=== PATIENT | male | born 1955 | race American Indian/Alaskan Native ===

== ENCOUNTER 2019-08-14 12:48 | Inpatient (IN) | payer OTHER ==
[2019-08-14] MEDS ORDERED: ACETAMINOPHEN 500 MG TAB ONE (13:19)
[2019-08-14] MEDS ORDERED: SODIUM CHLORIDE 0.9% 1000 ML 1,000 ML ONE (13:20)
[2019-08-14] MEDS ORDERED: SODIUM CHLORIDE 0.9% 1000 ML IV SOLN IV ONE (13:21)
--- NOTE | 2019-08-14 13:29 | Emergency Department Report ---
ED Shortness of Breath HPI - General Chief Complaint: Dyspnea/Respdistress Stated Complaint: SOB Time Seen by Provider: 08/14/19 13:20 Source: patient, family Mode of arrival: Wheelchair Limitations: No Limitations - History of Present Illness Initial Comments: Patient is 64 years old male with history of rheumatoid arthritis on daily prednisone and he also taking methotrexate. Patient also had history of hypertension and possible COPD. Patient presented to the ER complaining of 5- day history of fever, cough, runny nose, shortness of breath, nausea vomiting and diarrhea. Patient denied any contact with confirmed or suspected patient with COVID-19. Patient denied any chest pain. Patient found to be febrile with a temperature of 102.4 tachycardic at 129 and blood pressure of 134/84. Respiratory rate is 38 breaths/min. Patient initial oxygen saturation on room air is 64%, patient put on a nonrebreather with improvement of oxygen saturation to 89% and then will drop down to 80%. Sepsis protocol immediately initiated. Given patient history and current presentation this patient is highly suspected to have covid-19. Respiratory precaution and isolation initiated. During this time that I spent with the patient I have my PPE all the time including the full gown, and 95 mask. MD Complaint: shortness of breath, cough -: days(s) (5) Severity: moderate Known History Of: COPD Context: recent URI - Related Data Home Medications Medication Instructions Recorded Confirmed Last Taken Folic Acid [Folvite] 1 mg PO QDAY 03/18/18 08/14/19 03/18/18 Ibuprofen [Ibuprofen 800] 800 mg PO TID 03/18/18 08/14/19 03/18/18 Prednisone [predniSONE (Kiki) ER 5 mg PO QDAY 03/18/18 08/14/19 03/18/18 TAB] metHOTREXate(DOSE WEEKLY ONLY) 15 mg PO QWEEK 03/18/18 08/14/19 03/16/18 [metHOTREXate (DOSE WEEKLY ONLY)] sulfaSALAzine [Azulfidine] 1,000 mg PO BID 03/18/18 08/14/19 03/18/18 Amlodipine Besylate [Norvasc] 10 mg PO QDAY 08/14/19 08/14/19 Unknown HYDROcodone/APAP 7.5-325 [[place] 1 each PO Q8HR PRN 08/14/19 08/14/19 Unknown 7.5/325] Zolpidem Tartrate 10 mg PO QHS PRN 08/14/19 08/14/19 Unknown Allergies Allergy/AdvReac Type Severity Reaction Status Date / Time No Known Allergies Allergy Verified 03/18/18 09:23 ED Review of Systems ROS: Stated complaint: SOB Other details as noted in HPI Comment: All other systems reviewed and negative Constitutional: chills, fever Respiratory: cough, shortness of breath, SOB with exertion Cardiovascular: palpitations. denies: chest pain Gastrointestinal: nausea, vomiting, diarrhea. denies: abdominal pain Musculoskeletal: denies: back pain Neurological: weakness ED Past Medical Hx - Past Medical History Previous Medical History?: Yes Hx Hypertension: Yes ("BORDERLINE" - NO MEDS) Hx Renal Disease: No Hx Arthritis: Yes Hx COPD: Yes (NO MEDS) Hx HIV: No - Surgical History Past Surgical History?: Yes Additional Surgical History: right knee, left knee - Social History Smoking Status: Never Smoker Substance Use Type: Alcohol, Prescribed - Medications Home Medications: Home Medications Medication Instructions Recorded Confirmed Last Taken Type Folic Acid [Folvite] 1 mg PO QDAY 03/18/18 08/14/19 03/18/18 History Ibuprofen [Ibuprofen 800] 800 mg PO TID 03/18/18 08/14/19 03/18/18 History Prednisone [predniSONE (Kiki) ER 5 mg PO QDAY 03/18/18 08/14/19 03/18/18 History TAB] metHOTREXate(DOSE WEEKLY ONLY) 15 mg PO QWEEK 03/18/18 08/14/19 03/16/18 History [metHOTREXate (DOSE WEEKLY ONLY)] sulfaSALAzine [Azulfidine] 1,000 mg PO BID 03/18/18 08/14/19 03/18/18 History Amlodipine Besylate [Norvasc] 10 mg PO QDAY 08/14/19 08/14/19 Unknown History HYDROcodone/APAP 7.5-325 [[place] 1 each PO Q8HR PRN 08/14/19 08/14/19 Unknown History 7.5/325] Zolpidem Tartrate 10 mg PO QHS PRN 08/14/19 08/14/19 Unknown History ED Physical Exam - General Limitations: No Limitations General appearance: in distress - Head Head exam: Present: atraumatic, normocephalic, normal inspection - Eye Eye exam: Present: normal appearance - ENT ENT exam: Present: mucous membranes dry - Neck Neck exam: Present: normal inspection, full ROM. Absent: tenderness, meningismus - Respiratory Respiratory exam: Present: normal lung sounds bilaterally - Cardiovascular Cardiovascular Exam: Present: tachycardia - GI/Abdominal GI/Abdominal exam: Present: soft, normal bowel sounds. Absent: distended, tenderness, guarding, rebound, rigid, organomegaly, mass, bruit, pulsatile mass, hernia - Extremities Exam Extremities exam: Present: normal inspection, full ROM, normal capillary refill. Absent: tenderness, pedal edema, calf tenderness - Back Exam Back exam: Present: normal inspection, full ROM. Absent: CVA tenderness (R), CVA tenderness (L) - Neurological Exam Neurological exam: Present: alert, oriented X3 - Skin Skin exam: Present: warm, intact, normal color ED Course Vital Signs 08/14/19 08/14/19 08/14/19 12:48 14:03 14:15 Temperature 102.4 F H Pulse Rate 76 124 H 120 H Respiratory 24 40 H 42 H Rate Blood Pressure 134/84 155/89 130/84 O2 Sat by Pulse 76 L 95 91 Oximetry 08/14/19 08/14/19 08/14/19 14:30 14:46 14:50 Temperature Pulse Rate 116 H 119 H Respiratory 38 H 34 H 36 H Rate Blood Pressure 130/84 138/86 O2 Sat by Pulse 96 94 65 L Oximetry 08/14/19 08/14/19 08/14/19 15:00 15:15 15:24 Temperature Pulse Rate 119 H 121 H 116 H Respiratory 30 H 24 Rate Blood Pressure 129/90 134/93 137/52 O2 Sat by Pulse 88 83 L 97 Oximetry 08/14/19 08/14/19 08/14/19 15:30 15:35 15:45 Temperature 99.9 F H Pulse Rate 113 H 114 H Respiratory 20 31 H Rate Blood Pressure 137/88 135/78 O2 Sat by Pulse 98 100 Oximetry 08/14/19 08/14/19 08/14/19 16:00 16:15 16:30 Temperature Pulse Rate 109 H 113 H 108 H Respiratory 29 H 29 H 31 H Rate Blood Pressure 135/78 133/87 133/87 O2 Sat by Pulse 97 100 100 Oximetry 04/03/2408/14/19 08/14/19 16:45 17:00 17:15 Temperature Pulse Rate 106 H 112 H 108 H Respiratory 28 H 28 H 26 H Rate Blood Pressure 130/84 130/84 139/87 O2 Sat by Pulse 100 100 98 Oximetry 08/14/19 08/14/19 08/14/19 17:30 17:46 17:52 Temperature 98.3 F Pulse Rate 112 H 113 H Respiratory 27 H 27 H Rate Blood Pressure 139/87 134/89 O2 Sat by Pulse 100 99 Oximetry 08/14/19 08/14/19 08/14/19 18:00 18:15 18:30 Temperature Pulse Rate 107 H 106 H 105 H Respiratory 23 23 23 Rate Blood Pressure 129/93 140/92 143/93 O2 Sat by Pulse 99 97 Oximetry 08/14/19 08/14/19 08/14/19 18:45 19:00 19:15 Temperature Pulse Rate 103 H 105 H 107 H Respiratory 23 23 21 Rate Blood Pressure 139/94 142/93 141/93 O2 Sat by Pulse 95 Oximetry 08/14/19 08/14/19 08/14/19 19:30 19:45 19:50 Temperature Pulse Rate 104 H 104 H 112 H Respiratory 23 23 Rate Blood Pressure 147/93 146/95 137/82 O2 Sat by Pulse 95 95 95 Oximetry 08/14/19 08/14/19 08/14/19 20:00 20:15 20:30 Temperature Pulse Rate 106 H 103 H 103 H Respiratory 21 21 19 Rate Blood Pressure 137/91 128/83 122/84 O2 Sat by Pulse 95 95 Oximetry 08/14/19 08/14/19 08/14/19 20:45 21:00 21:02 Temperature Pulse Rate 101 H 101 H 101 H Respiratory 20 22 Rate Blood Pressure 135/86 143/94 135/86 O2 Sat by Pulse 97 97 97 Oximetry 08/14/19 08/14/19 08/14/19 21:15 21:30 21:45 Temperature Pulse Rate 108 H 107 H 105 H Respiratory 24 20 20 Rate Blood Pressure 143/94 127/84 115/77 O2 Sat by Pulse 97 95 94 Oximetry 08/14/19 08/14/19 08/14/19 22:00 22:15 22:30 Temperature Pulse Rate 103 H 103 H 105 H Respiratory 20 21 32 H Rate Blood Pressure 117/77 125/82 117/80 O2 Sat by Pulse Oximetry 08/14/19 08/14/19 08/14/19 22:45 23:00 23:05 Temperature Pulse Rate 104 H 104 H 105 H Respiratory 22 22 25 H Rate Blood Pressure 132/83 132/83 132/83 O2 Sat by Pulse 96 95 94 Oximetry 08/14/19 08/14/19 08/14/19 23:15 23:30 23:45 Temperature Pulse Rate 105 H 106 H 105 H Respiratory 23 34 H 26 H Rate Blood Pressure 133/86 140/79 142/86 O2 Sat by Pulse 96 97 96 Oximetry 08/15/19 08/15/19 08/15/19 00:01 00:03 00:15 Temperature Pulse Rate 118 H 117 H 113 H Respiratory 32 H 33 H Rate Blood Pressure 160/106 142/86 142/98 O2 Sat by Pulse 95 96 91 Oximetry 08/15/19 08/15/19 00:30 01:00 Temperature 99.9 F H Pulse Rate 112 H Respiratory 27 H Rate Blood Pressure 140/92 O2 Sat by Pulse 91 Oximetry - Intubation Time Out Performed: Yes Sedative: Etomidate Mg Given: 20 Paralytic: Succinylcholine Laryngoscope: Monse Size: 3 ET Tube Size: 7.5 Tube Secured Location: teeth Tube Placement Confirmation: visualized tube passing t, equal breath sounds bilat, no breath sounds over epi, confirmation by capnometr Patient Tolerated Procedure: well, no complications Intubation Complications: none ED Medical Decision Making - Lab Data Result diagrams: 08/15/19 04:12 08/15/19 04:12 - EKG Data -: EKG Interpreted by Nm EKG shows normal: sinus rhythm Rate: tachycardia - EKG Data Interpretation: no acute changes - Radiology Data Radiology results: report reviewed - Medical Decision Making Patient is 64 years old male with history of rheumatoid arthritis on daily prednisone and he also taking methotrexate. Patient also had history of hypertension and possible COPD. Patient presented to the ER complaining of 5- day history of fever, cough, runny nose, shortness of breath, nausea vomiting and diarrhea. Patient denied any contact with confirmed or suspected patient with COVID-19. Patient denied any chest pain. Patient found to be febrile with a temperature of 102.4 tachycardic at 129 and blood pressure of 134/84. Respiratory rate is 38 breaths/min. Patient initial oxygen saturation on room air is 64%, patient put on a nonrebreather with improvement of oxygen saturation to 89% and then will drop down to 80%. Sepsis protocol immediately initiated. Given patient history and current presentation this patient is highly suspected to have covid-19. Respiratory precaution and isolation initiated. Patient given a trial with high flow oxygen but no improvement patient continues to be tachypneic with an oxygen saturation in the lower 80s. I decided to intubate the patient for acute respiratory failure. Patient intubated by me using a glide scope. I discussed the patient with Dr. Sanchez Heart, infectious disease who advised to go ahead with the testing for covid-19. I discussed the patient with Dr. Grande, he agreed to admit the patient to medical service for further management. Critical Care Time: Yes Critical care time in (mins) excluding proc time.: 45 Critical care attestation.: If time is entered above; I have spent that time in minutes in the direct care of this critically ill patient, excluding procedure time. ED Disposition Clinical Impression: Bilateral pneumonia, Sepsis, Suspected COVID-19 virus infection Acute respiratory failure Qualifiers: Respiratory failure complication: hypoxia Qualified Code(s): J96.01 - Acute respiratory failure with hypoxia Disposition: 09 OP ADMIT IP TO THIS HOSP Is pt being admited?: Yes Condition: Stable
[2019-08-14 13:51] LABS: Hematocrit 46.1 % (35.5-45.6); Hemoglobin 14.8 gm/dl (11.8-15.2); Mean Corpuscular HGB Conc 32 % (32-34); Mean Corpuscular Volume 84 fl (84-94); Red Blood Count 5.47 M/mm3 (3.65-5.03); Red Cell Distribution Width 17.6 % (13.2-15.2)
--- NOTE | 2019-08-14 14:11 | XRay Report ---
CHEST 1 VIEW, 08/14/2019 1:36 PM CLINICAL INFORMATION/INDICATION: Shortness of breath COMPARISON: None FINDINGS: SUPPORT DEVICES: None. HEART: The cardiac silhouette is normal in size. LUNGS/PLEURA: There is diffuse bilateral mixed interstitial and airspace disease. No focal consolidat ion or significant pleural effusion is identified. ADDITIONAL FINDINGS: No additional acute findings. IMPRESSION: 1. Mixed interstitial and airspace disease of indeterminate etiology and chronicity. Signer Name: Kinsey Harrison MD Signed: 08/14/2019 2:07 PM Workstation Name: [id number]
[2019-08-14 14:16] LABS: Alanine Aminotransferase 18 units/L (7-56); Albumin 3.7 g/dL (3.9-5); BUN/Creatinine Ratio 22; Blood Urea Nitrogen 22 mg/dL (9-20); C-Reactive Protein 22.2 mg/dL (0.00-1.30); Calcium 9.7 mg/dL (8.4-10.2); Hemolysis Index 5
[2019-08-14] MEDS ORDERED: cefTRIAXone/NS 1 GM/50 ML 1 GM/50 ML BAG IV ONE (14:20)
[2019-08-14] MEDS ORDERED: ACETAMINOPHEN 500 MG TAB PO ONE (14:22)
[2019-08-14 14:40] LABS: Band Neutrophils # (Manual) 0.1 K/mm3; Basophils % (Manual) 0 % (0.0-1.8); Eosinophils % (Manual) 0 % (0.0-4.3); Myelocytes # (Manual) 0.1 K/mm3; Total Cells Counted 100
[2019-08-14 14:41] LABS: Giant Platelets Few; Hypochromasia Few; Platelet Estimate Consistent w Auto; Rouleaux Few
[2019-08-14 14:47] LABS: Platelet Count 246 K/mm3 (140-440)
[2019-08-14] MEDS ORDERED: AZITHROMYCIN 500 MG in SODIUM CHLORIDE 0.9% 250ML 250 ML IV ONE (15:00)
[2019-08-14] MEDS ORDERED: LIP THERAPY VASELINE TP PRN (16:09)
[2019-08-14] MEDS ORDERED: MINERAL OIL/PETROLATUM, WHITE OPHTH OINT 3.5 GM OU PRN (16:09)
--- NOTE | 2019-08-14 16:15 | XRay Report ---
CHEST 1 VIEW, 08/14/2019 3:29 PM CLINICAL INFORMATION/INDICATION: Respiratory failure. Endotracheal tube placement COMPARISON: Chest radiograph, 08/14/2019 at 1:36 PM FINDINGS: SUPPORT DEVICES: There has been interval placement of an endotracheal tube with tip approximately 3.5 cm above the level of the joanne. An esophagogastric tube has also been placed with distal end below the level of the diaphragm. HEART: The cardiac silhouette is normal in size. LUNGS/PLEURA: Diffuse bilateral parenchymal disease is again noted and appears unchanged. ADDITIONAL FINDINGS: No additional acute findings. IMPRESSION: 1. Placement of endotracheal tube and esophagogastric tube as above. 2. Stable diffuse bilateral parenchymal disease. Signer Name: Kinsey Harrison MD Signed: 08/14/2019 4:11 PM Workstation Name: [id number]
[2019-08-14] MEDS ORDERED: fentaNYL 100 MCG/2 ML INJ ONE ×2 (16:21→22:00)
[2019-08-14] MEDS ORDERED: fentaNYL DRIP Premix 2,000 MCG/100 ML BAG IV ONE (16:21)
[2019-08-14] MEDS: fentaNYL 100 MCG/2 ML INJ IV PRN ×2 (16:27→22:05)
[2019-08-14] MEDS: fentaNYL DRIP Premix 2,000 MCG/100 ML BAG IV SCH (16:28)
[2019-08-14 16:44] LABS: ABG Base Excess -5.5 mmol/L (-2.0-3.0); ABG HCO3 20.7 mmol/L (20.0-26.0); ABG Methemoglobin 0.6 % (0.0-1.5); ABG Oxygen Saturation 99.3 % (95.0-99.0); ABG PCO2 42.7 mm Hg; ABG PH 7.303 pH Units (7.350-7.450); ABG PO2 223.6 mm Hg (80.0-90.0)
[2019-08-14 19:56] LABS: Bilirubin,Urine NEG (Negative); Blood,Urine SM (Negative); Color,Urine Yellow (Yellow); Mucus,Urine 2+ /HPF; Urobilinogen,Urine < 2.0 mg/dL (<2.0)
[2019-08-14] MEDS ORDERED: ALBUTEROL 2.5 MG/3 ML NEBU IH PRN (23:50)
[2019-08-14] MEDS ORDERED: ONDANSETRON 4 MG/2 ML INJ IV PRN (23:52)
--- NOTE | 2019-08-15 00:03 | History and Physical Report ---
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 Patient was not wearing a mask. This patient is well-known to me and was cautioned about social distancing, wearing mask, the office being closed so that there is no exposure to coronavirus. In spite of many people telling him not to go to work-patient has been going to work. Developed fever and diarrhea for last 5 days but did not seek any medical attention. His called me this morning about the fever and diarrhea and the patient was asked to come to the emergency room for evaluation. In the emergency room patient had low oxygen saturations in the high fever and oxygenation levels were not improving with high flow oxygen and was intubated for respiratory support. states that there were 2 patients with coronavirus at work. PUI?: Yes COVID19: Pending Past History Past Medical History: hypertension, other (Rheumatoid arthritis) Past Surgical History: Other Social history: , lives with family, full code Family history: hypertension Medications and Allergies Allergies Allergy/AdvReac Type Severity Reaction Status Date / Time No Known Allergies Allergy Verified 03/18/18 09:23 Home Medications Medication Instructions Recorded Confirmed Last Taken Type Folic Acid [Folvite] 1 mg PO QDAY 03/18/18 08/14/19 03/18/18 History Ibuprofen [Ibuprofen 800] 800 mg PO TID 03/18/18 08/14/19 03/18/18 History Prednisone [predniSONE (Kiki) ER 5 mg PO QDAY 03/18/18 08/14/19 03/18/18 History TAB] metHOTREXate(DOSE WEEKLY ONLY) 15 mg PO QWEEK 03/18/18 08/14/19 03/16/18 History [metHOTREXate (DOSE WEEKLY ONLY)] sulfaSALAzine [Azulfidine] 1,000 mg PO BID 03/18/18 08/14/19 03/18/18 History Amlodipine Besylate [Norvasc] 10 mg PO QDAY 08/14/19 08/14/19 Unknown History HYDROcodone/APAP 7.5-325 [[place] 1 each PO Q8HR PRN 08/14/19 08/14/19 Unknown History 7.5/325] Zolpidem Tartrate 10 mg PO QHS PRN 08/14/19 08/14/19 Unknown History Active Meds: Active Medications Acetaminophen (Tylenol) 650 mg PO Q4H PRN PRN Reason: Pain MILD(1-3)/Fever >100.5/GANNON Albuterol (Proventil) 2.5 mg IH Q4HRT PRN PRN Reason: Shortness Of Breath Fentanyl (Sublimaze) 50 mcg IV Q10MIN PRN PRN Reason: ANALGESIA Last Admin: 08/14/19 22:05 Dose: 50 mcg Documented by: Hydrophilic Ointment (Vaseline Lip Therapy) 1 applic TP Q2HR PRN PRN Reason: Dry Lips Hydroxychloroquine Sulfate (Plaquenil) 400 mg PO Q12H ADÁN Stop: 08/15/19 11:46 Hydroxychloroquine Sulfate (Plaquenil) 200 mg PO Q12H ADÁN Stop: 08/19/19 10:01 Fentanyl Citrate (Fentanyl Drip Premix) 2,000 mcg in 100 mls @ 5.216 mls/hr IV TITR ADÁN; Protocol Last Titration: 08/14/19 16:50 Dose: 2 mcg/kg/hr, 10.433 mls/hr Documented by: Propofol (Diprivan 10 Mg/Ml) 1,000 mg in 100 mls @ 3.13 mls/hr IV TITR ADÁN; Protocol Last Admin: 08/14/19 21:28 Dose: 50 mcg/kg/min, 31.298 mls/hr Documented by: Ceftriaxone Sodium (Rocephin/Ns 2 Gm/100 Ml) 2 gm in 100 mls @ 200 mls/hr IV Q24HR ADÁN; Protocol Sodium Chloride (Nacl 0.9% 1000 Ml) 1,000 mls @ 75 mls/hr IV DIRECT ADÁN Multi-Ingred Cream/Lotion/Oil/Oint (Artificial Tears Ophth Oint) 1 applic OU Q4HR PRN PRN Reason: Dry Eye(s) Ondansetron HCl (Zofran) 4 mg IV Q8H PRN PRN Reason: Nausea And Vomiting Sodium Chloride (Sodium Chloride Flush Syringe 10 Ml) 10 ml IV BID ADÁN Sodium Chloride (Sodium Chloride Flush Syringe 10 Ml) 10 ml IV PRN PRN PRN Reason: LINE FLUSH Review of Systems All systems: negative Constitutional: fever, chills, night sweats, weakness, malaise Cardiovascular: shortness of breath, dyspnea on exertion Respiratory: cough Gastrointestinal: diarrhea Exam - Physical Exam Narrative exam: Patient intubated - Constitutional Vitals: Temp Pulse Resp BP Pulse Ox 98.3 F 104 H 22 132/83 95 08/14/19 17:52 08/14/19 23:00 08/14/19 23:00 08/14/19 23:00 08/14/19 23:00 General appearance: Present: no acute distress, severe distress, well-nourished - EENT Eyes: Present: PERRL ENT: hearing intact, clear oral mucosa - Neck Neck: Present: supple, normal ROM - Respiratory Respiratory effort: normal Respiratory: bilateral: CTA, rales, rhonchi - Cardiovascular Heart rate: 98 Rhythm: regular (98) Heart Sounds: Present: S1 & S2. Absent: rub, click - Extremities Extremities: no ischemia, pulses symmetrical, No edema Peripheral Pulses: within normal limits - Abdominal General gastrointestinal: Present: soft, non-tender, non-distended, normal bowel sounds Male genitourinary: Present: normal - Integumentary Integumentary: Present: clear, warm, dry - Musculoskeletal Musculoskeletal: strength equal bilaterally, other (Before intubation) - Psychiatric Psychiatric: appropriate mood/affect, intact judgment & insight - Neurologic Neurologic: CNII-XII intact, moves all extremities, other (Before intubation) - Allied Health Allied health notes reviewed: nursing, case management Results - Labs CBC & Chem 7: 08/14/19 13:27 08/14/19 13:27 Labs: Laboratory Last Values WBC 12.2 K/mm3 (4.5-11.0) H 08/14/19 13:27 RBC 5.47 M/mm3 (3.65-5.03) H 08/14/19 13:27 Hgb 14.8 gm/dl (11.8-15.2) 08/14/19 13:27 Hct 46.1 % (35.5-45.6) H 08/14/19 13:27 MCV 84 fl (84-94) 08/14/19 13:27 MCH 27 pg (28-32) L 08/14/19 13:27 MCHC 32 % (32-34) 08/14/19 13:27 RDW 17.6 % (13.2-15.2) H 08/14/19 13:27 Plt Count 246 K/mm3 (140-440) 08/14/19 13:27 Add Manual Diff Complete 08/14/19 13:27 Total Counted 100 08/14/19 13:27 Seg Neutrophils % Production Analyst 08/14/19 13:27 Seg Neuts % (Manual) 93.0 % (40.0-70.0) H 08/14/19 13:27 Band Neutrophils % 1.0 % 08/14/19 13:27 Lymphocytes % (Manual) 3.0 % (13.4-35.0) L 08/14/19 13:27 Reactive Lymphs % (Man) 0 % 08/14/19 13:27 Monocytes % (Manual) 2.0 % (0.0-7.3) 08/14/19 13:27 Eosinophils % (Manual) 0 % (0.0-4.3) 08/14/19 13:27 Basophils % (Manual) 0 % (0.0-1.8) 08/14/19 13:27 Metamyelocytes % 0 % 08/14/19 13:27 Myelocytes % 1.0 % 08/14/19 13:27 Promyelocytes % 0 % 08/14/19 13:27 Blast Cells % 0 % 08/14/19 13:27 Nucleated RBC % Not Reportable 08/14/19 13:27 Seg Neutrophils # Man 11.3 K/mm3 (1.8-7.7) H 08/14/19 13:27 Band Neutrophils # 0.1 K/mm3 08/14/19 13:27 Lymphocytes # (Manual) 0.4 K/mm3 (1.2-5.4) L 08/14/19 13:27 Abs React Lymphs (Man) 0.0 K/mm3 08/14/19 13:27 Monocytes # (Manual) 0.2 K/mm3 (0.0-0.8) 08/14/19 13:27 Eosinophils # (Manual) 0.0 K/mm3 (0.0-0.4) 08/14/19 13:27 Basophils # (Manual) 0.0 K/mm3 (0.0-0.1) 08/14/19 13:27 Metamyelocytes # 0.0 K/mm3 08/14/19 13:27 Myelocytes # 0.1 K/mm3 08/14/19 13:27 Promyelocytes # 0.0 K/mm3 08/14/19 13:27 Blast Cells # 0.0 K/mm3 08/14/19 13:27 WBC Morphology Not Reportable 08/14/19 13:27 Hypersegmented Neuts Not Reportable 08/14/19 13:27 Hyposegmented Neuts Not Reportable 08/14/19 13:27 Hypogranular Neuts Not Reportable 08/14/19 13:27 Smudge Cells Not Reportable 08/14/19 13:27 Toxic Granulation Not Reportable 08/14/19 13:27 Toxic Vacuolation Not Reportable 08/14/19 13:27 Dohle Bodies Not Reportable 08/14/19 13:27 Pelger-Huet Anomaly Not Reportable 08/14/19 13:27 Jorge A Rods Not Reportable 08/14/19 13:27 Platelet Estimate Consistent w auto 08/14/19 13:27 Clumped Platelets Not Reportable 08/14/19 13:27 Plt Clumps, EDTA Not Reportable 08/14/19 13:27 Large Platelets Not Reportable 08/14/19 13:27 Giant Platelets Few 08/14/19 13:27 Platelet Satelliting Not Reportable 08/14/19 13:27 Plt Morphology Comment Not Reportable 08/14/19 13:27 RBC Morphology Not Reportable 08/14/19 13:27 Dimorphic RBCs Not Reportable 08/14/19 13:27 Polychromasia Not Reportable 08/14/19 13:27 Hypochromasia Few 08/14/19 13:27 Poikilocytosis Not Reportable 08/14/19 13:27 Anisocytosis Not Reportable 08/14/19 13:27 Microcytosis Not Reportable 08/14/19 13:27 Macrocytosis Not Reportable 08/14/19 13:27 Spherocytes Not Reportable 08/14/19 13:27 Pappenheimer Bodies Not Reportable 08/14/19 13:27 Sickle Cells Not Reportable 08/14/19 13:27 Target Cells Not Reportable 08/14/19 13:27 Tear Drop Cells Not Reportable 08/14/19 13:27 Ovalocytes Not Reportable 08/14/19 13:27 Helmet Cells Not Reportable 08/14/19 13:27 [place] Bodies Not Reportable 08/14/19 13:27 [place] Rings Not Reportable 08/14/19 13:27 [place] Cells Not Reportable 08/14/19 13:27 Bite Cells Not Reportable 08/14/19 13:27 Crenated Cell Not Reportable 08/14/19 13:27 Elliptocytes Not Reportable 08/14/19 13:27 Acanthocytes (Spur) Not Reportable 08/14/19 13:27 Rouleaux Few 08/14/19 13:27 Hemoglobin C Crystals Not Reportable 08/14/19 13:27 Schistocytes Not Reportable 08/14/19 13:27 Malaria parasites Not Reportable 08/14/19 13:27 Scott Bodies Not Reportable 08/14/19 13:27 Hem Pathologist Commnt No 08/14/19 13:27 D-Dimer 6296.21 ng/mlDDU (0-234) H 08/14/19 13:27 ABG pH 7.303 pH Units (7.350-7.450) L 08/14/19 16:25 ABG pCO2 42.7 mm Hg 08/14/19 16:25 ABG pO2 223.6 mm Hg (80.0-90.0) H 08/14/19 16:25 ABG HCO3 20.7 mmol/L (20.0-26.0) 08/14/19 16:25 ABG O2 Saturation 99.3 % (95.0-99.0) H 08/14/19 16:25 ABG O2 Content 24.2 (0.0-44) 08/14/19 16:25 ABG Base Excess -5.5 mmol/L (-2.0-3.0) L 08/14/19 16:25 ABG Hemoglobin 17.3 gm/dl (14.0-18.0) 08/14/19 16:25 ABG Carboxyhemoglobin 1.1 % (0.0-5.0) 08/14/19 16:25 ABG Methemoglobin 0.6 % (0.0-1.5) 08/14/19 16:25 Oxyhemoglobin 97.6 % (95.0-99.0) 08/14/19 16:25 FiO2 100 % 08/14/19 16:25 Sodium 134 mmol/L (137-145) L 08/14/19 13:27 Potassium 3.5 mmol/L (3.6-5.0) L 08/14/19 13:27 Chloride 94.7 mmol/L (98-107) L 08/14/19 13:27 Carbon Dioxide 17 mmol/L (22-30) L 08/14/19 13:27 Anion Gap 26 mmol/L 08/14/19 13:27 BUN 22 mg/dL (9-20) H 08/14/19 13:27 Creatinine 1.0 mg/dL (0.8-1.5) 08/14/19 13:27 Estimated GFR > 60 ml/min 08/14/19 13:27 BUN/Creatinine Ratio 22 % 08/14/19 13:27 Glucose 104 mg/dL (75-100) H 08/14/19 13:27 Lactic Acid 1.50 mmol/L (0.7-2.0) 08/14/19 16:15 Calcium 9.7 mg/dL (8.4-10.2) 08/14/19 13:27 Ferritin 1633.0 ng/mL (13.0-400.0) H 08/14/19 13:27 Total Bilirubin 0.30 mg/dL (0.1-1.2) 08/14/19 13:27 AST 43 units/L (5-40) H 08/14/19 13:27 ALT 18 units/L (7-56) 08/14/19 13:27 Alkaline Phosphatase 111 units/L (35-129) 08/14/19 13:27 Lactate Dehydrogenase 651 units/L (91-180) H 08/14/19 13:27 C-Reactive Protein 22.20 mg/dL (0.00-1.30) H 08/14/19 13:27 Total Protein 9.0 g/dL (6.3-8.2) H 08/14/19 13:27 Albumin 3.7 g/dL (3.9-5) L 08/14/19 13:27 Albumin/Globulin Ratio 0.7 % 08/14/19 13:27 Procalcitonin 0.67 ng/mL (<0.15) 08/14/19 13:27 Urine Color Yellow (Yellow) 08/14/19 19:40 Urine Turbidity Slightly-cloudy (Clear) 08/14/19 19:40 Urine pH 5.0 (5.0-7.0) 08/14/19 19:40 Ur Specific [place] 1.021 (1.003-1.030) 08/14/19 19:40 Urine Protein 100 mg/dl mg/dL (Negative) 08/14/19 19:40 Urine Glucose (UA) Neg mg/dL (Negative) 08/14/19 19:40 Urine Ketones Neg mg/dL (Negative) 08/14/19 19:40 Urine Blood Sm (Negative) 08/14/19 19:40 Urine Nitrite Neg (Negative) 08/14/19 19:40 Urine Bilirubin Neg (Negative) 08/14/19 19:40 Urine Urobilinogen < 2.0 mg/dL (<2.0) 08/14/19 19:40 Ur Leukocyte Esterase Neg (Negative) 08/14/19 19:40 Urine WBC (Auto) 2.0 /HPF (0.0-6.0) 08/14/19 19:40 Urine RBC (Auto) 3.0 /HPF (0.0-6.0) 08/14/19 19:40 U Epithel Cells (Auto) 1.0 /HPF (0-13.0) 08/14/19 19:40 Urine Mucus 2+ /HPF 08/14/19 19:40 Influenza A (Rapid) Negative (Negative) 08/14/19 Unknown Influenza B (Rapid) Negative (Negative) 08/14/19 Unknown Short CBC 08/14/19 Range/Units 13:27 WBC 12.2 H (4.5-11.0) K/mm3 Hgb 14.8 (11.8-15.2) gm/dl Hct 46.1 H (35.5-45.6) % Plt Count 246 (140-440) K/mm3 BMP 08/14/19 13:27 Sodium 134 L Potassium 3.5 L Chloride 94.7 L Carbon Dioxide 17 L BUN 22 H Creatinine 1.0 Glucose 104 H Calcium 9.7 Liver Function 08/14/19 Range/Units 13:27 Total Bilirubin 0.30 (0.1-1.2) mg/dL AST 43 H (5-40) units/L ALT 18 (7-56) units/L Alkaline Phosphatase 111 (35-129) units/L Albumin 3.7 L (3.9-5) g/dL Urine 08/14/19 Range/Units 19:40 Urine Color Yellow (Yellow) Urine pH 5.0 (5.0-7.0) Ur Specific [place] 1.021 (1.003-1.030) Urine Protein 100 mg/dl (Negative) mg/dL Urine Glucose (UA) Neg (Negative) mg/dL Microbiology: Microbiology 08/14/19 13:27 Peripheral/Venous Blood Culture - Preliminary Culture in Progress 08/14/19 13:27 Peripheral/Venous Blood Culture - Preliminary Culture in Progress - Imaging and Cardiology EKG: report reviewed Imaging and Cardiology: Chest x-ray IMPRESSION: 1. Mixed interstitial and airspace disease of indeterminate etiology and chronicity. [place]/IV: IV Catheter Type [Left Hand] Peripheral IV IV Catheter Type [Right Hand] Peripheral IV Assessment and Plan Assessment and plan: The high probability OF a clinically significant sudden or life-threatening deterioration of the cardiorespiratory system and endocrine system required my full and direct attention, intervention and postoperative management. The aggregate medical care time was 40 minutes. The time is in addition to time spent performing reported procedures but includes the followin: Data review and interpretation 2: Patient assessment and monitoring of vital signs 3: Documentation 4:: Medication orders and management Advance Directives: Yes (Full code) VTE prophylaxis?: Chemical - Patient Problems (1) Acute respiratory failure Current Visit: Yes Status: Acute Qualifiers: Respiratory failure complication: hypoxia Qualified Code(s): J96.01 - Acute respiratory failure with hypoxia Plan to address problem: Patient intubated Vent management Soil Science Teacher consulted Patient sedated (2) Bilateral pneumonia Current Visit: Yes Status: Acute Plan to address problem: Patient initiated on IV ceftriaxone and chloroquine (3) Sepsis Current Visit: Yes Status: Acute Plan to address problem: IV fluids, IV antibiotics and chloroquine ID consult (4) Suspected COVID-19 virus infection Current Visit: Yes Status: Acute Plan to address problem: COVID 19 sent (5) Rheumatoid arthritis Current Visit: Yes Status: Chronic Qualifiers: Rheumatoid arthritis location: knee Rheumatoid factor presence: with rheumatoid factor Laterality: bilateral Qualified Code(s): M05.761 - Rheumatoid arthritis with rheumatoid factor of right knee without organ or systems involvement; M05.762 - Rheumatoid arthritis with rheumatoid factor of left knee without organ or systems involvement Plan to address problem: Patient is on methotrexate and prednisone We will discuss with ID and restart them (6) Volume depletion, gastrointestinal loss Current Visit: Yes Status: Acute Plan to address problem: IV fluids for now because of volume depletion We will discuss with ID about continuation of normal saline which can be harmful in ARDS patients (7) DVT prophylaxis Current Visit: Yes Status: Acute Plan to address problem: SCDs and GI prophylaxis
[2019-08-15] MEDS ORDERED: fentaNYL DRIP Premix 2,000 MCG/100 ML BAG IV ONE (00:32)
[2019-08-15] MEDS: HYDROXYCHLOROQUINE 200 MG TAB PO SCH ×3 (01:38→21:19)
[2019-08-15] MEDS: SODIUM CHLORIDE 0.9% 1000 ML 1,000 ML IV SCH (01:42)
[2019-08-15] MEDS ORDERED: METOPROLOL TARTRATE 5 MG/5 ML INJ IV ONE (02:20)
[2019-08-15] MEDS ORDERED: ASPIRIN 325 MG TAB PO ONE (02:29)
[2019-08-15 02:43] LABS: ABG Base Excess -4.5 mmol/L (-2.0-3.0); ABG HCO3 20.3 mmol/L (20.0-26.0); ABG Methemoglobin 0.5 % (0.0-1.5); ABG Oxygen Saturation 89.4 % (95.0-99.0); ABG PCO2 36.6 mm Hg; ABG PH 7.362 pH Units (7.350-7.450); ABG PO2 57.8 mm Hg (80.0-90.0)
--- NOTE | 2019-08-15 02:43 | Event Note ---
Notified nurse of abnormal EKG EKG shows ST elevation EKG was faxed to cardiology The patient received beta-shanti, aspirin, statin, and ATA inhibitor Cardiology recommend TPA due to Covid status, heparin drip Patient had CODE BLUE Initial rhythm PEA ACLS protocol was initiated, ROSC was achieved was notified, check labs
[2019-08-15] MEDS ORDERED: EPINEPHrine 1:10,000 1 MG/10 ML SYRINGE ONE (03:00)
[2019-08-15] MEDS ORDERED: ALTEPLASE IV ONE (03:04)
[2019-08-15] MEDS ORDERED: SODIUM CHLORIDE 0.9% 1000 ML 1,000 ML IV ONE ×2 (03:04→04:55)
[2019-08-15 03:11] LABS: Hematocrit 41.7 % (35.5-45.6); Hemoglobin 13.2 gm/dl (11.8-15.2); Mean Corpuscular HGB Conc 32 % (32-34); Mean Corpuscular Volume 84 fl (84-94); Red Blood Count 4.95 M/mm3 (3.65-5.03); Red Cell Distribution Width 17.6 % (13.2-15.2)
[2019-08-15] MEDS ORDERED: ALTEPLASE 100 MG INJ KIT ONE (03:19)
[2019-08-15 03:29] LABS: C-Reactive Protein 24.3 mg/dL (0.00-1.30)
[2019-08-15 03:33] LABS: Creatine Kinase MB 69.8 ng/mL (0.0-4.0)
[2019-08-15 03:36] LABS: BUN/Creatinine Ratio 24; Blood Urea Nitrogen 26 mg/dL (9-20); Calcium 8.9 mg/dL (8.4-10.2); Hemolysis Index 4
[2019-08-15] MEDS ORDERED: NORepinephrine/NS 4 MG-250 ML 4 MG/250 ML BAG IV ONE (03:39)
[2019-08-15 03:43] LABS: INR 3.26 (0.87-1.13)
[2019-08-15 04:04] LABS: Partial Thromboplastin Time 61.5 Sec. (24.2-36.6)
[2019-08-15 04:06] LABS: Chol/HDL Ratio 3.66 %
[2019-08-15 04:18] LABS: Anisocytosis 1+; Basophils % (Manual) 0 % (0.0-1.8); Eosinophils % (Manual) 0 % (0.0-4.3); Giant Platelets 1+; Hypochromasia 1+; Platelet Clumps 1+; Rouleaux 1+; Total Cells Counted 100
[2019-08-15 04:19] LABS: Platelet Count 190 K/mm3 (140-440)
[2019-08-15 04:32] LABS: Basophils % (Auto) 0.2 % (0.0-1.8); Eosinophils % (Auto) 0.1 % (0.0-4.3); Hematocrit 40.3 % (35.5-45.6); Hemoglobin 12.5 gm/dl (11.8-15.2); Lymphocytes # (Auto) 1.1 K/mm3 (1.2-5.4); Lymphocytes % (Auto) 8.5 % (13.4-35.0); Mean Corpuscular HGB Conc 31 % (32-34); Mean Corpuscular Volume 87 fl (84-94); Monocytes # (Auto) 0.5 K/mm3 (0.0-0.8); Monocytes % (Auto) 4.3 % (0.0-7.3); Platelet Count 159 K/mm3 (140-440); Red Blood Count 4.65 M/mm3 (3.65-5.03); Red Cell Distribution Width 17.5 % (13.2-15.2)
[2019-08-15 04:38] LABS: Creatine Kinase MB 66.1 ng/mL (0.0-4.0)
[2019-08-15 04:39] LABS: BUN/Creatinine Ratio 19; Blood Urea Nitrogen 26 mg/dL (9-20); Calcium 8.1 mg/dL (8.4-10.2); Hemolysis Index 3
[2019-08-15] MEDS: HEPARIN/ 0.45% NACL DRIP 25,000 UNIT/500 ML BAG IV SCH (04:48)
[2019-08-15] MEDS ORDERED: LIPASE 10,500/PROTEASE 25,000/AMYLASE 43,750 (UNITS) DR CAP FEEDTUBE PRN (08:47)
[2019-08-15] MEDS ORDERED: SIMPLE SYRUP 15 ML FEEDTUBE PRN ×2 (08:47)
[2019-08-15] MEDS ORDERED: SODIUM BICARBONATE 325 MG TAB FEEDTUBE PRN (08:47)
[2019-08-15] MEDS: cefTRIAXone/NS 2 GM/100 ML 2 GM/100 ML BAG IV SCH (09:23)
[2019-08-15] MEDS: fentaNYL DRIP Premix 2,000 MCG/100 ML BAG IV SCH ×3 (09:24→23:14)
[2019-08-15] MEDS ORDERED: MIDAZOLAM 5 MG/5 ML INJ MDV IV ONE (10:00)
[2019-08-15] MEDS ORDERED: ETOMIDATE 20 MG/10 ML INJ IV ONE (10:00)
[2019-08-15] MEDS ORDERED: METOPROLOL TARTRATE 25 MG TAB PO SCH (10:00)
[2019-08-15] MEDS ORDERED: LISINOPRIL 5 MG TAB PO SCH (10:00)
[2019-08-15] MEDS ORDERED: SUCCINYLCHOLINE CHLORIDE 200 MG/10 ML INJ MDV ONE (10:00)
--- NOTE | 2019-08-15 10:44 | XRay Report ---
CHEST 1 VIEW, 08/15/2019 8:44 AM CLINICAL INFORMATION/INDICATION: Respiratory failure COMPARISON: Chest radiograph, 08/14/2019 at 3:29 PM FINDINGS: SUPPORT DEVICES: Endotracheal tube and esophagogastric tube project in stable position. HEART: The cardiac silhouette is normal in size. LUNGS/PLEURA: Diffuse bilateral pulmonary opacities do not appear significantly changed. No large ple ural effusion or pneumothorax is visualized. ADDITIONAL FINDINGS: No additional acute findings. IMPRESSION: 1. Stable appearance of bilateral pulmonary opacities. Signer Name: Kinsey Harrison MD Signed: 08/15/2019 10:40 AM Workstation Name: [id number]
--- NOTE | 2019-08-15 11:05 | Consultation ---
History of Present Illness Consult date: 08/15/19 Consult reason: other (Acute myocardial infarction) History of present illness: The patient is a 64-year-old man admitted to the hospital with shortness of breath, fever 102, bilateral severe pulmonary infiltrates and high suspicion for COVID-19. In the hospital he was assessed with acute respiratory failure and intubated and placed on the vent. His initial ECG on presentation was a sinus rhythm with no acute ischemic changes. 12 hours into his hospital course while in the CCU, the nursing staff noted an elevation of his ST segments on the cardiac monitor technician. A 12-lead ECG repeated was consistent with an acute inferolateral wall myocardial infarction. Due to his condition with COVID-19, acute respiratory failure and sepsis, he was deemed not a candidate for emergency diagnostic cardiac catheterization. Instead, he w as treated with standard dose thrombolytic therapy with TPA, and continued intravenous heparin. The patient currently remains unresponsive, in the CCU on the ventilator. He remains in a stable sinus rhythm, blood pressure is 119 systolic on low-dose Levophed. A 12-lead EKG post thrombolytic therapy shows a greater than 50% reduction in the ST elevation inferolateral leads. Past History Past Medical History: hypertension, other (Rheumatoid arthritis) Social history: , lives with family, full code Family history: hypertension Medications and Allergies Allergies Allergy/AdvReac Type Severity Reaction Status Date / Time No Known Allergies Allergy Verified 03/18/18 09:23 Home Medications Medication Instructions Recorded Confirmed Last Taken Type Folic Acid [Folvite] 1 mg PO QDAY 03/18/18 08/14/19 03/18/18 History Ibuprofen [Ibuprofen 800] 800 mg PO TID 03/18/18 08/14/19 03/18/18 History Prednisone [predniSONE (Kiki) ER 5 mg PO QDAY 03/18/18 08/14/19 03/18/18 History TAB] metHOTREXate(DOSE WEEKLY ONLY) 15 mg PO QWEEK 03/18/18 08/14/19 03/16/18 History [metHOTREXate (DOSE WEEKLY ONLY)] sulfaSALAzine [Azulfidine] 1,000 mg PO BID 03/18/18 08/14/19 03/18/18 History Amlodipine Besylate [Norvasc] 10 mg PO QDAY 08/14/19 08/14/19 Unknown History HYDROcodone/APAP 7.5-325 [[place] 1 each PO Q8HR PRN 08/14/19 08/14/19 Unknown History 7.5/325] Zolpidem Tartrate 10 mg PO QHS PRN 08/14/19 08/14/19 Unknown History Active Meds: Active Medications Acetaminophen (Tylenol) 650 mg PO Q4H PRN PRN Reason: Pain MILD(1-3)/Fever >100.5/GANNON Albuterol (Proventil) 2.5 mg IH Q4HRT PRN PRN Reason: Shortness Of Breath Lipase/Protease/Amylase (Pancreaze Dr 10,500 Unit) 1 each FEEDTUBE PRN PRN PRN Reason: For Clogged Feeding Tube Atorvastatin Calcium (Lipitor) 40 mg PO QHS ADÁN Fentanyl (Sublimaze) 50 mcg IV Q10MIN PRN PRN Reason: ANALGESIA Last Admin: 08/14/19 22:05 Dose: 50 mcg Documented by: Hydrophilic Ointment (Vaseline Lip Therapy) 1 applic TP Q2HR PRN PRN Reason: Dry Lips Hydroxychloroquine Sulfate (Plaquenil) 400 mg PO Q12H ADÁN Stop: 08/15/19 11:46 Last Admin: 08/15/19 01:38 Dose: 400 mg Documented by: Hydroxychloroquine Sulfate (Plaquenil) 200 mg PO Q12H ADÁN Stop: 08/19/19 10:01 Fentanyl Citrate (Fentanyl Drip Premix) 2,000 mcg in 100 mls @ 5.216 mls/hr IV TITR ADÁN; Protocol Last Admin: 08/15/19 09:24 Dose: 3 mcg/kg/hr, 15.649 mls/hr Documented by: Propofol (Diprivan 10 Mg/Ml) 1,000 mg in 100 mls @ 3.13 mls/hr IV TITR ADÁN; Protocol Last Admin: 08/15/19 09:21 Dose: 50 mcg/kg/min, 31.298 mls/hr Documented by: Ceftriaxone Sodium (Rocephin/Ns 2 Gm/100 Ml) 2 gm in 100 mls @ 200 mls/hr IV Q24HR ADÁN; Protocol Last Admin: 08/15/19 09:23 Dose: 200 mls/hr Documented by: Sodium Chloride (Nacl 0.9% 1000 Ml) 1,000 mls @ 75 mls/hr IV DIRECT ADÁN Last Admin: 08/15/19 01:42 Dose: 75 mls/hr Documented by: Heparin Sodium/Sodium Chloride (Heparin/ 0.45% Nacl-25,000 Unit/500 Ml) 25,000 unit in 500 mls @ 20 mls/hr IV TITRATE [facility]; Protocol Last Admin: 08/15/19 04:48 Dose: 600 units/hr, 12 mls/hr Documented by: Sodium Chloride (Nacl 0.9% 1000 Ml) 1,000 mls @ 42 mls/hr IV ONCE ONE Stop: 08/16/19 02:52 Last Admin: 08/15/19 04:54 Dose: 42 mls/hr Documented by: Lisinopril (Zestril) 2.5 mg PO QDAY [facility] Last Admin: 08/15/19 10:42 Dose: Not Given Documented by: Metoprolol Tartrate (Metoprolol) 25 mg PO BID [facility] Last Admin: 08/15/19 10:42 Dose: Not Given Documented by: Multi-Ingred Cream/Lotion/Oil/Oint (Artificial Tears Ophth Oint) 1 applic OU Q4HR PRN PRN Reason: Dry Eye(s) Ondansetron HCl (Zofran) 4 mg IV Q8H PRN PRN Reason: Nausea And Vomiting Simple Syrup (Simple Syrup) 15 ml FEEDTUBE PRN PRN PRN Reason: Hypoglycemia Simple Syrup (Simple Syrup) 30 ml FEEDTUBE PRN PRN PRN Reason: Hypoglycemia Sodium Bicarbonate (Sodium Bicarbonate) 325 mg FEEDTUBE PRN PRN PRN Reason: For Clogged Feeding Tube Sodium Chloride (Sodium Chloride Flush Syringe 10 Ml) 10 ml IV BID [facility] Last Admin: 08/15/19 09:23 Dose: 10 ml Documented by: Sodium Chloride (Sodium Chloride Flush Syringe 10 Ml) 10 ml IV PRN PRN PRN Reason: LINE FLUSH Review of Systems ROS unobtainable: due to endotracheal tube, due to mental status Physical Examination Vital Signs Temp Pulse Resp BP Pulse Ox 102.4 F H 76 24 134/84 76 L 08/14/19 12:48 08/14/19 12:48 08/14/19 12:48 08/14/19 12:48 08/14/19 12:48 General appearance: other (Unresponsive, on the ventilator) HEENT: Positive: PERRL Neck: Positive: neck supple Cardiac: Positive: Reg Rate and Rhythm Lungs: Positive: Decreased Breath Sounds Neuro: Positive: Other (Unresponsive, on the vent) Abdomen: Positive: Soft Male genitourinary: Positive: deferred Skin: Positive: Clear Extremities: Absent: edema Results 08/15/19 04:12 08/15/19 04:12 Cardiac Enzymes 08/14/19 08/14/19 08/15/19 Range/Units 13:27 13:27 02:25 AST 43 H (5-40) units/L Lactate Dehydrogenase 651 H 732 H (91-180) units/L CK-MB (CK-2) (0.0-4.0) ng/mL 08/15/19 08/15/19 Range/Units 02:25 04:12 AST (5-40) units/L Lactate Dehydrogenase (91-180) units/L CK-MB (CK-2) 69.8 H 66.1 H (0.0-4.0) ng/mL Coagulation 08/15/19 Range/Units 02:25 PT 34.0 H (12.2-14.9) Sec. INR 3.26 H (0.87-1.13) APTT 61.5 H* (24.2-36.6) Sec. Lipids 08/15/19 Range/Units 02:25 Triglycerides 219 H (2-149) mg/dL Cholesterol 154 (50-199) mg/dL HDL Cholesterol 42 (40-59) mg/dL Cholesterol/HDL Ratio 3.66 % CBC 08/14/19 08/15/19 08/15/19 Range/Units 13:27 02:25 04:12 WBC 12.2 H 13.7 H 12.8 H (4.5-11.0) K/mm3 RBC 5.47 H 4.95 4.65 (3.65-5.03) M/mm3 Hgb 14.8 13.2 12.5 (11.8-15.2) gm/dl Hct 46.1 H 41.7 40.3 (35.5-45.6) % Plt Count 246 190 159 (140-440) K/mm3 Lymph # 1.1 L (1.2-5.4) K/mm3 Gates # 0.5 (0.0-0.8) K/mm3 Eos # 0.0 (0.0-0.4) K/mm3 Baso # 0.0 (0.0-0.1) K/mm3 Comprehensive Metabolic Panel 08/14/19 08/15/19 08/15/19 Range/Units 13:27 02:25 04:12 Sodium 134 L 135 L 136 L (137-145) mmol/L Potassium 3.5 L 3.9 3.7 (3.6-5.0) mmol/L Chloride 94.7 L 100.6 103.1 (98-107) mmol/L Carbon Dioxide 17 L 19 L 18 L (22-30) mmol/L BUN 22 H 26 H 26 H (9-20) mg/dL Creatinine 1.0 1.1 1.4 (0.8-1.5) mg/dL Glucose 104 H 113 H 142 H (75-100) mg/dL Calcium 9.7 8.9 8.1 L (8.4-10.2) mg/dL AST 43 H (5-40) units/L ALT 18 (7-56) units/L Alkaline Phosphatase 111 (35-129) units/L Total Protein 9.0 H (6.3-8.2) g/dL Albumin 3.7 L (3.9-5) g/dL EKG interpretations - Telemetry EKG Rhythm: Sinus Rhythm (With acute inferolateral ST elevation myocardial infarction) Assessment and Plan - Patient Problems (1) Acute ST elevation myocardial infarction (STEMI) of inferolateral wall Current Visit: Yes Status: Acute Plan to address problem: 64-year-old man who presented with respiratory failure and fever and sepsis, high suspicion for COVID-19 infection. The intercurrent development of an acute inferior lateral ST elevation myocardial infarction while hospitalized in the CCU was treated with intravenous TPA. ECG post TPA shows successful reperfusion with marked reduction in the ST segment elevation. We will continue aggressive management with aspirin, Plavix, intravenous heparin, beta-blockers, nitrates and statin as tolerated. Further cardiac management will depend on clinical course with regards to the sepsis and respiratory failure.
[2019-08-15] MEDS ORDERED: CLOPIDOGREL 300 MG TAB PO ONE (11:15)
--- NOTE | 2019-08-15 11:27 | Consultation ---
History of Present Illness Consult date: 08/15/19 Requesting physician: YOGESH NIXON Reason for consult: hypoxemia, other History of present illness: 64 y/o male admitted with acute respiratory failure, concern for COVID 19 based upon presenting symptoms to the ED. Patient was intubated somewhere late yesterday afternoon. I was first called about the patient after midnight ([id number] exactly), that patient came up from ED and was found to have ST elevation and concern for acute MO. I ordered ASA 325 and Atorvastatin 40 and Metoprolol IV and PO. They were awaiting call back from cardiology. I wanted them to decide about TPA or not. They did elect to given Altepase and then heparin drip was started. Currently patient is sedated, on vent support at FiO2 of 100 which I just decreased to 90. Sats still good at 95%. BP stable with MAP of 81 on levo at 6 but this is going through a peripheral IV. Patient is also on Diprovan at 50 and Fent at 3. Remainder of the review is negative. Past History Past Medical History: hypertension, other (Rheumatoid arthritis) Past Surgical History: Other Social history: , lives with family, full code Family history: hypertension Medications and Allergies Allergies Allergy/AdvReac Type Severity Reaction Status Date / Time No Known Allergies Allergy Verified 03/18/18 09:23 Home Medications Medication Instructions Recorded Confirmed Last Taken Type Folic Acid [Folvite] 1 mg PO QDAY 03/18/18 08/14/19 03/18/18 History Ibuprofen [Ibuprofen 800] 800 mg PO TID 03/18/18 08/14/19 03/18/18 History Prednisone [predniSONE ([place]iki) ER 5 mg PO QDAY 03/18/18 08/14/19 03/18/18 History TAB] metHOTREXate(DOSE WEEKLY ONLY) 15 mg PO QWEEK 03/18/18 08/14/19 03/16/18 History [metHOTREXate (DOSE WEEKLY ONLY)] sulfaSALAzine [Azulfidine] 1,000 mg PO BID 03/18/18 08/14/19 03/18/18 History Amlodipine Besylate [Norvasc] 10 mg PO QDAY 08/14/19 08/14/19 Unknown History HYDROcodone/APAP 7.5-325 [[place] 1 each PO Q8HR PRN 04/11/20 04/11/20 Unknown History 7.5/325] Zolpidem Tartrate 10 mg PO QHS PRN 08/14/19 08/14/19 Unknown History Active Meds: Active Medications Acetaminophen (Tylenol) 650 mg PO Q4H PRN PRN Reason: Pain MILD(1-3)/Fever >100.5/GANNON Albuterol (Proventil) 2.5 mg IH Q4HRT PRN PRN Reason: Shortness Of Breath Lipase/Protease/Amylase ([place] 10,500 Unit) 1 each FEEDTUBE PRN PRN PRN Reason: For Clogged Feeding Tube Atorvastatin Calcium (Lipitor) 40 mg PO QHS [facility] Clopidogrel Bisulfate (Plavix) 300 mg PO ONCE ONE Stop: 08/15/19 11:16 Clopidogrel Bisulfate (Plavix) 75 mg PO QDAY [facility] Fentanyl (Sublimaze) 50 mcg IV Q10MIN PRN PRN Reason: ANALGESIA Last Admin: 08/14/19 22:05 Dose: 50 mcg Documented by: Hydrophilic Ointment (Vaseline Lip Therapy) 1 applic TP Q2HR PRN PRN Reason: Dry Lips Hydroxychloroquine Sulfate (Plaquenil) 400 mg PO Q12H [facility] Stop: 08/15/19 11:46 Last Admin: 08/15/19 01:38 Dose: 400 mg Documented by: Hydroxychloroquine Sulfate (Plaquenil) 200 mg PO Q12H [facility] Stop: 08/19/19 10:01 Fentanyl Citrate (Fentanyl Drip Premix) 2,000 mcg in 100 mls @ 5.216 mls/hr IV TITR [facility]; Protocol Last Admin: 08/15/19 09:24 Dose: 3 mcg/kg/hr, 15.649 mls/hr Documented by: Propofol (Diprivan 10 Mg/Ml) 1,000 mg in 100 mls @ 3.13 mls/hr IV TITR [facility]; Protocol Last Admin: 08/15/19 09:21 Dose: 50 mcg/kg/min, 31.298 mls/hr Documented by: Ceftriaxone Sodium (Rocephin/Ns 2 Gm/100 Ml) 2 gm in 100 mls @ 200 mls/hr IV Q24HR [facility]; Protocol Last Admin: 08/15/19 09:23 Dose: 200 mls/hr Documented by: Sodium Chloride (Nacl 0.9% 1000 Ml) 1,000 mls @ 75 mls/hr IV DIRECT [facility] Last Admin: 08/15/19 01:42 Dose: 75 mls/hr Documented by: Heparin Sodium/Sodium Chloride (Heparin/ 0.45% Nacl-25,000 Unit/500 Ml) 25,000 unit in 500 mls @ 20 mls/hr IV TITRATE [facility]; Protocol Last Admin: 08/15/19 04:48 Dose: 600 units/hr, 12 mls/hr Documented by: Sodium Chloride (Nacl 0.9% 1000 Ml) 1,000 mls @ 42 mls/hr IV ONCE ONE Stop: 08/16/19 02:52 Last Admin: 08/15/19 04:54 Dose: 42 mls/hr Documented by: Metoprolol Tartrate (Metoprolol) 25 mg PO Q8H [facility] Multi-Ingred Cream/Lotion/Oil/Oint (Artificial Tears Ophth Oint) 1 applic OU Q4HR PRN PRN Reason: Dry Eye(s) Nitroglycerin (Nitro-Bid 2%) 0.5 inch TP QIDNTG [facility]; Protocol Ondansetron HCl (Zofran) 4 mg IV Q8H PRN PRN Reason: Nausea And Vomiting Pantoprazole Sodium (Protonix) 40 mg PO QDAY [facility] Simple Syrup (Simple Syrup) 15 ml FEEDTUBE PRN PRN PRN Reason: Hypoglycemia Simple Syrup (Simple Syrup) 30 ml FEEDTUBE PRN PRN PRN Reason: Hypoglycemia Sodium Bicarbonate (Sodium Bicarbonate) 325 mg FEEDTUBE PRN PRN PRN Reason: For Clogged Feeding Tube Sodium Chloride (Sodium Chloride Flush Syringe 10 Ml) 10 ml IV BID [facility] Last Admin: 08/15/19 09:23 Dose: 10 ml Documented by: Sodium Chloride (Sodium Chloride Flush Syringe 10 Ml) 10 ml IV PRN PRN PRN Reason: LINE FLUSH Review of Systems ROS unobtainable: due to endotracheal tube, due to mental status Physical Examination Vital signs: Vital Signs Temp Pulse Resp BP Pulse Ox 102.4 F H 76 24 134/84 76 L 08/14/19 12:48 08/14/19 12:48 08/14/19 12:48 08/14/19 12:48 08/14/19 12:48 General appearance: comatose (secondary to medications we are giving) Eyes: non-icteric ENT: other (orally intubated and sedated) Neck: supple Effort: normal Ascultation: Bilateral: rales Percussion: Bilateral: not dull Cardiovascular: other (sinus tach) Gastrointestinal: normoactive bowel sounds, soft Extremities: no edema Musculoskeletal: no deformities unable to assess Results - Laboratory Findings CBC and BMP: 08/15/19 04:12 08/15/19 04:12 ABG ABG pH 7.362 pH Units (7.350-7.450) 08/15/19 02:26 ABG pCO2 36.6 mm Hg 08/15/19 02:26 ABG pO2 57.8 mm Hg (80.0-90.0) L 08/15/19 02:26 ABG O2 Saturation 89.4 % (95.0-99.0) L 08/15/19 02:26 PT/INR, D-dimer PT 34.0 Sec. (12.2-14.9) H 08/15/19 02:25 INR 3.26 (0.87-1.13) H 08/15/19 02:25 D-Dimer 835.18 ng/mlDDU (0-234) H 08/15/19 02:25 Abnormal lab findings: Abnormal Labs 08/14/19 08/14/19 08/14/19 13:27 13:27 13:27 WBC 12.2 H RBC 5.47 H Hct 46.1 H MCH 27 L MCHC RDW 17.6 H Lymph % (Auto) Lymph # Seg Neutrophils % Seg Neuts % (Manual) 93.0 H Lymphocytes % (Manual) 3.0 L Seg Neutrophils # Seg Neutrophils # Man 11.3 H Lymphocytes # (Manual) 0.4 L Monocytes # (Manual) PT INR APTT D-Dimer ABG pH ABG pO2 ABG O2 Saturation ABG Base Excess ABG Hemoglobin Oxyhemoglobin Sodium 134 L Potassium 3.5 L Chloride 94.7 L Carbon Dioxide 17 L BUN 22 H Glucose 104 H Lactic Acid 2.60 H* Calcium Ferritin AST 43 H Lactate Dehydrogenase Total Creatine Kinase CK-MB (CK-2) CK-MB (CK-2) Rel Index Troponin T C-Reactive Protein Total Protein 9.0 H Albumin 3.7 L Triglycerides 08/14/19 08/14/19 08/14/19 13:27 13:27 13:27 WBC RBC Hct MCH MCHC RDW Lymph % (Auto) Lymph # Seg Neutrophils % Seg Neuts % (Manual) Lymphocytes % (Manual) Seg Neutrophils # Seg Neutrophils # Man Lymphocytes # (Manual) Monocytes # (Manual) PT INR APTT D-Dimer 6296.21 H ABG pH ABG pO2 ABG O2 Saturation ABG Base Excess ABG Hemoglobin Oxyhemoglobin Sodium Potassium Chloride Carbon Dioxide BUN Glucose Lactic Acid Calcium Ferritin 1633.0 H AST Lactate Dehydrogenase 651 H Total Creatine Kinase CK-MB (CK-2) CK-MB (CK-2) Rel Index Troponin T C-Reactive Protein 22.20 H Total Protein Albumin Triglycerides 08/14/19 08/15/19 08/15/19 16:25 02:25 02:25 WBC RBC Hct MCH MCHC RDW Lymph % (Auto) Lymph # Seg Neutrophils % Seg Neuts % (Manual) Lymphocytes % (Manual) Seg Neutrophils # Seg Neutrophils # Man Lymphocytes # (Manual) Monocytes # (Manual) PT INR APTT D-Dimer 835.18 H ABG pH 7.303 L ABG pO2 223.6 H ABG O2 Saturation 99.3 H ABG Base Excess -5.5 L ABG Hemoglobin Oxyhemoglobin Sodium Potassium Chloride Carbon Dioxide BUN Glucose Lactic Acid Calcium Ferritin 1885.0 H AST Lactate Dehydrogenase Total Creatine Kinase CK-MB (CK-2) CK-MB (CK-2) Rel Index Troponin T C-Reactive Protein Total Protein Albumin Triglycerides 08/15/19 08/15/19 08/15/19 02:25 02:25 02:25 WBC 13.7 H RBC Hct MCH 27 L MCHC RDW 17.6 H Lymph % (Auto) Lymph # Seg Neutrophils % Seg Neuts % (Manual) 83.0 H Lymphocytes % (Manual) 10.0 L Seg Neutrophils # Seg Neutrophils # Man 11.4 H Lymphocytes # (Manual) Monocytes # (Manual) 1.0 H PT INR APTT D-Dimer ABG pH ABG pO2 ABG O2 Saturation ABG Base Excess ABG Hemoglobin Oxyhemoglobin Sodium Potassium Chloride Carbon Dioxide BUN Glucose Lactic Acid Calcium Ferritin AST Lactate Dehydrogenase 732 H Total Creatine Kinase 644 H CK-MB (CK-2) 69.8 H CK-MB (CK-2) Rel Index 10.8 H Troponin T 0.352 H* C-Reactive Protein 24.30 H Total Protein Albumin Triglycerides 219 H 08/15/19 08/15/19 08/15/19 02:25 02:25 02:26 WBC RBC Hct MCH MCHC RDW Lymph % (Auto) Lymph # Seg Neutrophils % Seg Neuts % (Manual) Lymphocytes % (Manual) Seg Neutrophils # Seg Neutrophils # Man Lymphocytes # (Manual) Monocytes # (Manual) PT 34.0 H INR 3.26 H APTT 61.5 H* D-Dimer ABG pH ABG pO2 57.8 L ABG O2 Saturation 89.4 L ABG Base Excess -4.5 L ABG Hemoglobin 13.6 L Oxyhemoglobin 88.1 L Sodium 135 L Potassium Chloride Carbon Dioxide 19 L BUN 26 H Glucose 113 H Lactic Acid Calcium Ferritin AST Lactate Dehydrogenase Total Creatine Kinase CK-MB (CK-2) CK-MB (CK-2) Rel Index Troponin T C-Reactive Protein Total Protein Albumin Triglycerides 08/15/19 08/15/19 04:12 04:12 WBC 12.8 H RBC Hct MCH 27 L MCHC 31 L RDW 17.5 H Lymph % (Auto) 8.5 L Lymph # 1.1 L Seg Neutrophils % 86.9 H Seg Neuts % (Manual) Lymphocytes % (Manual) Seg Neutrophils # 11.1 H Seg Neutrophils # Man Lymphocytes # (Manual) Monocytes # (Manual) PT INR APTT D-Dimer ABG pH ABG pO2 ABG O2 Saturation ABG Base Excess ABG Hemoglobin Oxyhemoglobin Sodium 136 L Potassium Chloride Carbon Dioxide 18 L BUN 26 H Glucose 142 H Lactic Acid Calcium 8.1 L Ferritin AST Lactate Dehydrogenase Total Creatine Kinase 613 H CK-MB (CK-2) 66.1 H CK-MB (CK-2) Rel Index 10.7 H Troponin T 0.586 H* D C-Reactive Protein Total Protein Albumin Triglycerides - Diagnostic Findings Chest x-ray: image reviewed (bilateral patchy infiltrates) Assessment and Plan 64 y/o male with acute respiratory failure, concern for COVID 19 causing pneumonia, then with cardiac arrest x2 from acute MO status post TPA therapy last night, sedated on the vent. 1. Wean Levophed for MAPs >60. currently going through a peripheral IV. Likely unable to get PICC line until 24 hours post TPA. 2. Decrease FiO2 to 90%. Continue to wean for sats >88%. ABG this am may have been accurate so will repeat later this evening. Continue PEEP of 14. Peak Pressures in the mid 30's for now. 3. Continue heparin drip, BB, statin hold asa therapy for now. Doubt patient will get echo anytime soon so will. Will check BNP, if elevated will consider diuresis. Most likely changes on CXR are related to pneumonia but need to make sure no edema present as well. 4. Overal prognosis is guarded Will speak with . CCT 31 minutes.
[2019-08-15] MEDS ORDERED: LORazepam 2 MG/ML VIAL IV PRN (11:36)
[2019-08-15] MEDS: METOPROLOL TARTRATE 25 MG TAB PO SCH ×2 (12:40→20:23)
[2019-08-15] MEDS: NORepinephrine/NS 4 MG-250 ML 4 MG/250 ML BAG IV SCH ×2 (12:45→13:41)
[2019-08-15] MEDS: LORazepam 100 MG in SODIUM CHLORIDE 0.9% 50 ML, EMPTY BAG 0 ML IV SCH (13:35)
[2019-08-15] MEDS: NITROGLYCERIN 2% OINT 1 GM TP SCH ×2 (13:38→19:00)
[2019-08-15] MEDS: PANTOPRAZOLE 40 MG TAB PO SCH (13:38)
[2019-08-15 13:48] LABS: Creatine Kinase MB > 300.0 ng/mL (0.0-4.0)
--- NOTE | 2019-08-15 14:54 | Consultation ---
History of Present Illness - Reason for Consult Consult date: 08/15/19 PUI?: Yes COVID19: Pending - History of Present Illness 64-year-old male past medical history hypertension, rheumatoid arthritis admitted to the hospital with acute respiratory failure. There is concern for COVID-19 on presentation to the hospital, he was intubated yesterday. Coming out from the emergency room he was found to have ST elevation with acute NC, and he was given therapeutic treatment with alteplase and heparin drip. He remains on the vent, social history is obtained from the chart. Febrile on admission to 102.4 degrees with a white count of 13. He is tachycardic. Currently on ceftriaxone and hydroxychloroquine, cultures are pending. Imaging personally reviewed: Chest x-ray: Bilateral pulmonary infiltrates. Review of Systems: Bold if positive, otherwise negative Unable to obtain secondary to intubation Past History Past Medical History: hypertension, other (Rheumatoid arthritis) Past Surgical History: Other Social history: , lives with family, full code Family history: hypertension Medications and Allergies Allergies Allergy/AdvReac Type Severity Reaction Status Date / Time No Known Allergies Allergy Verified 03/18/18 09:23 Home Medications Medication Instructions Recorded Confirmed Last Taken Type Folic Acid [Folvite] 1 mg PO QDAY 03/18/18 08/14/19 03/18/18 History Ibuprofen [Ibuprofen 800] 800 mg PO TID 03/18/18 08/14/19 03/18/18 History Prednisone [predniSONE ([place]iki) ER 5 mg PO QDAY 03/18/18 08/14/19 03/18/18 His tory TAB] metHOTREXate(DOSE WEEKLY ONLY) 15 mg PO QWEEK 03/18/18 08/14/19 03/16/18 History [metHOTREXate (DOSE WEEKLY ONLY)] sulfaSALAzine [Azulfidine] 1,000 mg PO BID 03/18/18 08/14/19 03/18/18 History Amlodipine Besylate [Norvasc] 10 mg PO QDAY 08/14/19 08/14/19 Unknown History HYDROcodone/APAP 7.5-325 [[place] 1 each PO Q8HR PRN 08/14/19 08/14/19 Unknown History 7.5/325] Zolpidem Tartrate 10 mg PO QHS PRN 04/11/20 04/11/20 Unknown History Active Meds: Active Medications Acetaminophen (Tylenol) 650 mg PO Q4H PRN PRN Reason: Pain MILD(1-3)/Fever >100.5/GANNON Albuterol (Proventil) 2.5 mg IH Q4HRT PRN PRN Reason: Shortness Of Breath Lipase/Protease/Amylase ([place] [address] 10,500 Unit) 1 each FEEDTUBE PRN PRN PRN Reason: For Clogged Feeding Tube Atorvastatin Calcium (Lipitor) 40 mg PO QHS [facility] Clopidogrel Bisulfate (Plavix) 75 mg PO QDAY [facility] Fentanyl (Sublimaze) 50 mcg IV Q10MIN PRN PRN Reason: ANALGESIA Last Admin: 08/14/19 22:05 Dose: 50 mcg Documented by: Hydrophilic Ointment (Vaseline Lip Therapy) 1 applic TP Q2HR PRN PRN Reason: Dry Lips Hydroxychloroquine Sulfate (Plaquenil) 200 mg PO Q12H [facility] Stop: 08/19/19 10:01 Fentanyl Citrate (Fentanyl Drip Premix) 2,000 mcg in 100 mls @ 5.216 mls/hr IV TITR [facility]; Protocol Last Admin: 08/15/19 09:24 Dose: 3 mcg/kg/hr, 15.649 mls/hr Documented by: Propofol (Diprivan 10 Mg/Ml) 1,000 mg in 100 mls @ 3.13 mls/hr IV TITR [facility]; Protocol Last Titration: 08/15/19 13:48 Dose: 35 mcg/kg/min, 21.908 mls/hr Documented by: Ceftriaxone Sodium (Rocephin/Ns 2 Gm/100 Ml) 2 gm in 100 mls @ 200 mls/hr IV Q24HR [facility]; Protocol Last Admin: 08/15/19 09:23 Dose: 200 mls/hr Documented by: Sodium Chloride (Nacl 0.9% 1000 Ml) 1,000 mls @ 75 mls/hr IV DIRECT [facility] Last Admin: 08/15/19 01:42 Dose: 75 mls/hr Documented by: Heparin Sodium/Sodium Chloride (Heparin/ 0.45% Nacl-25,000 Unit/500 Ml) 25,000 unit in 500 mls @ 20 mls/hr IV TITRATE [facility]; Protocol Last Admin: 08/15/19 04:48 Dose: 600 units/hr, 12 mls/hr Documented by: Sodium Chloride (Nacl 0.9% 1000 Ml) 1,000 mls @ 42 mls/hr IV ONCE ONE Stop: 08/16/19 02:52 Last Admin: 08/15/19 04:54 Dose: 42 mls/hr Documented by: Lorazepam 100 mg/ Sodium Chloride/ Miscellaneous Information 100 mls @ 1 mls/hr IV TITR [facility]; Protocol Last Admin: 08/15/19 13:35 Dose: 1 mg/hr, 1 mls/hr Documented by: Norepinephrine (Levophed Drip 4 Mg/Ns 250 Ml) 4 mg in 250 mls @ 7.5 mls/hr IV TITR [facility]; Protocol Last Admin: 08/15/19 13:41 Dose: 4 mcg/min, 15 mls/hr Documented by: Lorazepam (Ativan) 2 mg IV Q10MIN PRN PRN Reason: Agitation Metoprolol Tartrate (Metoprolol) 25 mg PO Q8H [facility] Last Admin: 08/15/19 12:40 Dose: 25 mg Documented by: Multi-Ingred Cream/Lotion/Oil/Oint (Artificial Tears Ophth Oint) 1 applic OU Q4HR PRN PRN Reason: Dry Eye(s) Nitroglycerin (Nitro-Bid 2%) 0.5 inch TP QIDNTG [facility]; Protocol Last Admin: 08/15/19 13:38 Dose: 0.5 inch Documented by: Ondansetron HCl (Zofran) 4 mg IV Q8H PRN PRN Reason: Nausea And Vomiting Pantoprazole Sodium (Protonix) 40 mg PO QDAY [facility] Last Admin: 08/15/19 13:38 Dose: 40 mg Documented by: Simple Syrup (Simple Syrup) 15 ml FEEDTUBE PRN PRN PRN Reason: Hypoglycemia Simple Syrup (Simple Syrup) 30 ml FEEDTUBE PRN PRN PRN Reason: Hypoglycemia Sodium Bicarbonate (Sodium Bicarbonate) 325 mg FEEDTUBE PRN PRN PRN Reason: For Clogged Feeding Tube Sodium Chloride (Sodium Chloride Flush Syringe 10 Ml) 10 ml IV BID [facility] Last Admin: 08/15/19 09:23 Dose: 10 ml Documented by: Sodium Chloride (Sodium Chloride Flush Syringe 10 Ml) 10 ml IV PRN PRN PRN Reason: LINE FLUSH Physical Examination - Physical Exam Narrative exam: Physical Exam: Constitutional: Intubated and sedated Head, Ears, Nose: Limited secondary to PPE conservations strategy Eyes: Limited secondary to PPE conservations strategy Neck: Intubated Oral: Intubated Cardiovascular: Limited secondary to PPE conservations strategy Respiratory: Limited secondary to PPE conservations strategy GI: Limited secondary to PPE conservations strategy Musculoskeletal: Limited secondary to PPE conservations strategy Skin: Limited secondary to PPE conservations strategy Hem/Lymphatic: Limited secondary to PPE conservations strategy Psych: Sedated Neurological: Sedated - Constitutional Vitals: Vital Signs Temp Pulse Resp BP Pulse Ox 99.2 F 86 11 L 88/63 90 08/15/19 12:00 08/15/19 14:45 08/15/19 14:45 08/15/19 14:45 08/15/19 14:45 Temperature -Last 24 Hours Temperature 99.2 F Temperature 98.6 F Temperature 98.6 F Temperature 98.3 F Temperature 99.9 F Temperature 98.3 F Temperature 99.9 F Results - Labs CBC & Chem 7: 08/15/19 04:12 08/15/19 04:12 Labs: Abnormal lab results 08/14/19 08/15/19 08/15/19 Range/Units 16:25 02:25 02:25 WBC (4.5-11.0) K/mm3 MCH (28-32) pg MCHC (32-34) % RDW (13.2-15.2) % Lymph % (Auto) (13.4-35.0) % Lymph # (1.2-5.4) K/mm3 Seg Neutrophils % (40.0-70.0) % Seg Neuts % (Manual) (40.0-70.0) % Lymphocytes % (Manual) (13.4-35.0) % Seg Neutrophils # (1.8-7.7) K/mm3 Seg Neutrophils # Man (1.8-7.7) K/mm3 Monocytes # (Manual) (0.0-0.8) K/mm3 PT (12.2-14.9) Sec. INR (0.87-1.13) APTT (24.2-36.6) Sec. D-Dimer 835.18 H (0-234) ng/mlDDU Heparin Anti-Xa Level (0.3-0.7) U.I./ml ABG pH 7.303 L (7.350-7.450) pH Units ABG pO2 223.6 H (80.0-90.0) mm Hg ABG O2 Saturation 99.3 H (95.0-99.0) % ABG Base Excess -5.5 L (-2.0-3.0) mmol/L ABG Hemoglobin (14.0-18.0) gm/dl Oxyhemoglobin (95.0-99.0) % Sodium (137-145) mmol/L Carbon Dioxide (22-30) mmol/L BUN (9-20) mg/dL Glucose (75-100) mg/dL POC Glucose (70-105) Calcium (8.4-10.2) mg/dL Ferritin 1885.0 H (13.0-400.0) ng/mL Lactate Dehydrogenase (91-180) units/L Total Creatine Kinase (55-170) units/L CK-MB (CK-2) (0.0-4.0) ng/mL CK-MB (CK-2) Rel Index (0-4) Troponin T (0.00-0.029) ng/mL C-Reactive Protein (0.00-1.30) mg/dL NT-Pro-B Natriuret Pep (0-900) pg/mL Triglycerides (2-149) mg/dL 08/15/19 08/15/19 08/15/19 Range/Units 02:25 02:25 02:25 WBC 13.7 H (4.5-11.0) K/mm3 MCH 27 L (28-32) pg MCHC (32-34) % RDW 17.6 H (13.2-15.2) % Lymph % (Auto) (13.4-35.0) % Lymph # (1.2-5.4) K/mm3 Seg Neutrophils % (40.0-70.0) % Seg Neuts % (Manual) 83.0 H (40.0-70.0) % Lymphocytes % (Manual) 10.0 L (13.4-35.0) % Seg Neutrophils # (1.8-7.7) K/mm3 Seg Neutrophils # Man 11.4 H (1.8-7.7) K/mm3 Monocytes # (Manual) 1.0 H (0.0-0.8) K/mm3 PT (12.2-14.9) Sec. INR (0.87-1.13) APTT (24.2-36.6) Sec. D-Dimer (0-234) ng/mlDDU Heparin Anti-Xa Level (0.3-0.7) U.I./ml ABG pH (7.350-7.450) pH Units ABG pO2 (80.0-90.0) mm Hg ABG O2 Saturation (95.0-99.0) % ABG Base Excess (-2.0-3.0) mmol/L ABG Hemoglobin (14.0-18.0) gm/dl Oxyhemoglobin (95.0-99.0) % Sodium (137-145) mmol/L Carbon Dioxide (22-30) mmol/L BUN (9-20) mg/dL Glucose (75-100) mg/dL POC Glucose (70-105) Calcium (8.4-10.2) mg/dL Ferritin (13.0-400.0) ng/mL Lactate Dehydrogenase 732 H (91-180) units/L Total Creatine Kinase 644 H (55-170) units/L CK-MB (CK-2) 69.8 H (0.0-4.0) ng/mL CK-MB (CK-2) Rel Index 10.8 H (0-4) Troponin T 0.352 H* (0.00-0.029) ng/mL C-Reactive Protein 24.30 H (0.00-1.30) mg/dL NT-Pro-B Natriuret Pep (0-900) pg/mL Triglycerides 219 H (2-149) mg/dL 08/15/19 08/15/19 08/15/19 Range/Units 02:25 02:25 02:26 WBC (4.5-11.0) K/mm3 MCH (28-32) pg MCHC (32-34) % RDW (13.2-15.2) % Lymph % (Auto) (13.4-35.0) % Lymph # (1.2-5.4) K/mm3 Seg Neutrophils % (40.0-70.0) % Seg Neuts % (Manual) (40.0-70.0) % Lymphocytes % (Manual) (13.4-35.0) % Seg Neutrophils # (1.8-7.7) K/mm3 Seg Neutrophils # Man (1.8-7.7) K/mm3 Monocytes # (Manual) (0.0-0.8) K/mm3 PT 34.0 H (12.2-14.9) Sec. INR 3.26 H (0.87-1.13) APTT 61.5 H* (24.2-36.6) Sec. D-Dimer (0-234) ng/mlDDU Heparin Anti-Xa Level (0.3-0.7) U.I./ml ABG pH (7.350-7.450) pH Units ABG pO2 57.8 L (80.0-90.0) mm Hg ABG O2 Saturation 89.4 L (95.0-99.0) % ABG Base Excess -4.5 L (-2.0-3.0) mmol/L ABG Hemoglobin 13.6 L (14.0-18.0) gm/dl Oxyhemoglobin 88.1 L (95.0-99.0) % Sodium 135 L (137-145) mmol/L Carbon Dioxide 19 L (22-30) mmol/L BUN 26 H (9-20) mg/dL Glucose 113 H (75-100) mg/dL POC Glucose (70-105) Calcium (8.4-10.2) mg/dL Ferritin (13.0-400.0) ng/mL Lactate Dehydrogenase (91-180) units/L Total Creatine Kinase (55-170) units/L CK-MB (CK-2) (0.0-4.0) ng/mL CK-MB (CK-2) Rel Index (0-4) Troponin T (0.00-0.029) ng/mL C-Reactive Protein (0.00-1.30) mg/dL NT-Pro-B Natriuret Pep (0-900) pg/mL Triglycerides (2-149) mg/dL 08/15/19 08/15/19 08/15/19 Range/Units 04:12 04:12 12:07 WBC 12.8 H (4.5-11.0) K/mm3 MCH 27 L (28-32) pg MCHC 31 L (32-34) % RDW 17.5 H (13.2-15.2) % Lymph % (Auto) 8.5 L (13.4-35.0) % Lymph # 1.1 L (1.2-5.4) K/mm3 Seg Neutrophils % 86.9 H (40.0-70.0) % Seg Neuts % (Manual) (40.0-70.0) % Lymphocytes % (Manual) (13.4-35.0) % Seg Neutrophils # 11.1 H (1.8-7.7) K/mm3 Seg Neutrophils # Man (1.8-7.7) K/mm3 Monocytes # (Manual) (0.0-0.8) K/mm3 PT (12.2-14.9) Sec. INR (0.87-1.13) APTT (24.2-36.6) Sec. D-Dimer (0-234) ng/mlDDU Heparin Anti-Xa Level (0.3-0.7) U.I./ml ABG pH (7.350-7.450) pH Units ABG pO2 (80.0-90.0) mm Hg ABG O2 Saturation (95.0-99.0) % ABG Base Excess (-2.0-3.0) mmol/L ABG Hemoglobin (14.0-18.0) gm/dl Oxyhemoglobin (95.0-99.0) % Sodium 136 L (137-145) mmol/L Carbon Dioxide 18 L (22-30) mmol/L BUN 26 H (9-20) mg/dL Glucose 142 H (75-100) mg/dL POC Glucose 121 H (70-105) Calcium 8.1 L (8.4-10.2) mg/dL Ferritin (13.0-400.0) ng/mL Lactate Dehydrogenase (91-180) units/L Total Creatine Kinase 613 H (55-170) units/L CK-MB (CK-2) 66.1 H (0.0-4.0) ng/mL CK-MB (CK-2) Rel Index 10.7 H (0-4) Troponin T 0.586 H* D (0.00-0.029) ng/mL C-Reactive Protein (0.00-1.30) mg/dL NT-Pro-B Natriuret Pep (0-900) pg/mL Triglycerides (2-149) mg/dL 08/15/19 08/15/19 08/15/19 Range/Units 12:14 12:14 12:14 WBC (4.5-11.0) K/mm3 MCH (28-32) pg MCHC (32-34) % RDW (13.2-15.2) % Lymph % (Auto) (13.4-35.0) % Lymph # (1.2-5.4) K/mm3 Seg Neutrophils % (40.0-70.0) % Seg Neuts % (Manual) (40.0-70.0) % Lymphocytes % (Manual) (13.4-35.0) % Seg Neutrophils # (1.8-7.7) K/mm3 Seg Neutrophils # Man (1.8-7.7) K/mm3 Monocytes # (Manual) (0.0-0.8) K/mm3 PT (12.2-14.9) Sec. INR (0.87-1.13) APTT (24.2-36.6) Sec. D-Dimer (0-234) ng/mlDDU Heparin Anti-Xa Level 0.10 L (0.3-0.7) U.I./ml ABG pH (7.350-7.450) pH Units ABG pO2 (80.0-90.0) mm Hg ABG O2 Saturation (95.0-99.0) % ABG Base Excess (-2.0-3.0) mmol/L ABG Hemoglobin (14.0-18.0) gm/dl Oxyhemoglobin (95.0-99.0) % Sodium (137-145) mmol/L Carbon Dioxide (22-30) mmol/L BUN (9-20) mg/dL Glucose (75-100) mg/dL POC Glucose (70-105) Calcium (8.4-10.2) mg/dL Ferritin (13.0-400.0) ng/mL Lactate Dehydrogenase (91-180) units/L Total Creatine Kinase 2255 H (55-170) units/L CK-MB (CK-2) > 300.0 H (0.0-4.0) ng/mL CK-MB (CK-2) Rel Index 13.3 H (0-4) Troponin T 6.990 H* D (0.00-0.029) ng/mL C-Reactive Protein (0.00-1.30) mg/dL NT-Pro-B Natriuret Pep 8074 H (0-900) pg/mL Triglycerides (2-149) mg/dL Assessment and Plan Cultures: Blood culture 08/14/2019 pending Sputum culture 08/14/2019 pending Wound culture A/P: 64 yo M PMHx hypertension, rheumatoid arthritis admitted with concern for COVID- 19, with subsequent STEMI #COVID-19 rule out: follow up testing. Continue isolation precautions. Agree with hydroxychloroquine as empiric therapy. Inflammatory markers worsening, though difficult to interpret in code blue scenario #Bilateral pneumonia: continue ceftriaxone #STEMI: s/p alteplase Recs: - Continue hydroxychloroquine 400mg q12h for 2 doses followed by 200mg q12h for 8 doses - Follow COVID lab order set every 48 hours. - Continue ceftriaxone - Follow up COVID-19 test Thank you for the consult, we will continue to follow. MD [facility] ([facility] M: [phone] O: [phone] F: [phone]
[2019-08-15] MEDS: ACETAMINOPHEN 325 MG TAB PO PRN (23:23)
[2019-08-16] MEDS: METOPROLOL TARTRATE 25 MG TAB PO SCH ×3 (04:23→19:51)
--- NOTE | 2019-08-16 04:54 | Progress Note ---
Assessment and Plan The high probability OF a clinically significant sudden or life-threatening deterioration of the cardiorespiratory system and endocrine system required my full and direct attention, intervention and postoperative management. The aggregate medical care time was 35 minutes. The time is in addition to time spent performing reported procedures but includes the followin: Data review and interpretation 2: Patient assessment and monitoring of vital signs 3: Documentation 4:: Medication orders and management - Patient Problems (1) STEMI (ST elevation myocardial infarction) Current Visit: Yes Status: Acute Plan to address problem: S/p TPA and iV Heparin drip Cardiolgy consult appreciated (2) Acute respiratory failure Current Visit: Yes Status: Acute Qualifiers: Respiratory failure complication: hypoxia Qualified Code(s): J96.01 - Acute respiratory failure with hypoxia Plan to address problem: Patient intubated Vent management Manager Track consulted Patient sedated on PEEP 14 and TV 450 (3) Bilateral pneumonia Current Visit: Yes Status: Acute Plan to address problem: Patient initiated on IV ceftriaxone and chloroquine Covid result pending Inflammatory markers worsening, though difficult to interpret in code blue scenario (4) Sepsis Current Visit: Yes Status: Acute Plan to address problem: IV fluids, IV antibiotics and chloroquine ID consult (5) Suspected COVID-19 virus infection Current Visit: Yes Status: Acute Plan to address problem: COVID 19 sent (6) Rheumatoid arthritis Current Visit: Yes Status: Chronic Qualifiers: Rheumatoid arthritis location: knee Rheumatoid factor presence: with rheumatoid factor Laterality: bilateral Qualified Code(s): M05.761 - Rheumatoid arthritis with rheumatoid factor of right knee without organ or systems involvement; M05.762 - Rheumatoid arthritis with rheumatoid factor of left knee without organ or systems involvement Plan to address problem: Patient is on methotrexate and prednisone We will discuss with ID and restart them (7) Volume depletion, gastrointestinal loss Current Visit: Yes Status: Acute Plan to address problem: IV fluids for now because of volume depletion We will discuss with ID about continuation of normal saline which can be harmful in ARDS patients (8) DVT prophylaxis Current Visit: Yes Status: Acute Plan to address problem: SCDs and GI prophylaxis Subjective Date of service: 08/15/19 Principal diagnosis: Bilateral pneumonia,STEMI Interval history: 63-year-old -[place] male with history of hypertension and rheumatoid arthritis on methotrexate and prednisone 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 Patient was not wearing a mask. This patient is well-known to me and was cautioned about social distancing, wearing mask, the office being closed so that there is no exposure to coronavirus. In spite of many people telling him not to go to work-patient has been going to work. Developed fever and diarrhea for last 5 days but did not seek any medical attention. His called me this morning about the fever and diarrhea and the patient was asked to come to the emergency room for evaluation. In the emergency room patient had low oxygen saturations in the high fever and oxygenation levels were not improving with high flow oxygen and was intubated for respiratory support. states that there were 2 patients with coronavirus at work. Overnite patient had ST elevation VT .Was given TPA and IV Heparin.Not cathed b/c of resp failure and being unstable. PUI?: Yes COVID19: Pending PUI?: Yes COVID19: Pending Objective - Exam Narrative Exam: Patient intubated - Constitutional Vitals: Vital Signs - 12hr 08/15/19 08/15/19 08/15/19 17:01 17:15 17:30 Temperature Pulse Rate 96 H 90 94 H Pulse Rate [ From Monitor] Respiratory 18 12 17 Rate Blood Pressure 104/69 104/69 121/76 O2 Sat by Pulse 87 91 Oximetry 08/15/19 08/15/19 08/15/19 17:45 18:01 18:15 Temperature Pulse Rate 101 H 96 H 101 H Pulse Rate [ From Monitor] Respiratory 20 18 20 Rate Blood Pressure 125/84 105/70 105/70 O2 Sat by Pulse 86 88 82 L Oximetry 08/15/19 08/15/19 08/15/19 18:30 18:45 19:00 Temperature Pulse Rate 98 H 99 H 99 H Pulse Rate [ From Monitor] Respiratory 17 15 16 Rate Blood Pressure 122/77 122/77 120/75 O2 Sat by Pulse 87 90 91 Oximetry 08/15/19 08/15/19 08/15/19 19:15 19:31 19:45 Temperature Pulse Rate 100 H 102 H 103 H Pulse Rate [ From Monitor] Respiratory 14 18 18 Rate Blood Pressure 120/75 132/56 121/73 O2 Sat by Pulse 89 90 87 Oximetry 08/15/19 08/15/19 08/15/19 20:00 20:15 20:23 Temperature 100.2 F H Pulse Rate 105 H 106 H 107 H Pulse Rate [ 105 H From Monitor] Respiratory 22 19 Rate Blood Pressure 116/76 116/76 113/80 O2 Sat by Pulse 93 94 Oximetry 08/15/19 08/15/19 08/15/19 20:30 20:41 20:45 Temperature Pulse Rate 106 H 100 H 99 H Pulse Rate [ From Monitor] Respiratory 20 20 Rate Blood Pressure 124/81 124/81 124/81 O2 Sat by Pulse 91 90 91 Oximetry 08/15/19 08/15/19 08/15/19 21:01 21:15 21:31 Temperature Pulse Rate 96 H 95 H 98 H Pulse Rate [ From Monitor] Respiratory 20 16 20 Rate Blood Pressure 112/69 112/69 112/67 O2 Sat by Pulse 86 Oximetry 08/15/19 08/15/19 08/15/19 21:45 22:01 22:15 Temperature Pulse Rate 99 H 101 H 103 H Pulse Rate [ From Monitor] Respiratory 20 22 22 Rate Blood Pressure 121/44 110/70 110/70 O2 Sat by Pulse 89 Oximetry 08/15/19 08/15/19 08/15/19 22:31 22:45 23:01 Temperature Pulse Rate 104 H 106 H 107 H Pulse Rate [ From Monitor] Respiratory 21 22 26 H Rate Blood Pressure 122/74 122/74 111/70 O2 Sat by Pulse 91 96 91 Oximetry 08/15/19 08/15/19 08/15/19 23:15 23:26 23:27 Temperature 101.4 F H Pulse Rate 108 H 108 H Pulse Rate [ From Monitor] Respiratory 26 H 24 Rate Blood Pressure 130/83 130/83 O2 Sat by Pulse 90 92 Oximetry 08/15/19 08/15/19 08/16/19 23:31 23:45 00:00 Temperature Pulse Rate 106 H 101 H 99 H Pulse Rate [ 99 H From Monitor] Respiratory 24 20 20 Rate Blood Pressure 120/58 120/58 O2 Sat by Pulse 93 95 97 Oximetry 08/16/19 08/16/19 08/16/19 00:01 00:15 00:31 Temperature Pulse Rate 98 H 97 H 95 H Pulse Rate [ From Monitor] Respiratory 16 17 17 Rate Blood Pressure 96/64 96/64 100/40 O2 Sat by Pulse 97 97 97 Oximetry 08/16/19 08/16/19 08/16/19 00:33 00:45 01:01 Temperature Pulse Rate 96 H 95 H 95 H Pulse Rate [ From Monitor] Respiratory 18 17 Rate Blood Pressure 100/40 100/40 83/38 O2 Sat by Pulse 97 97 97 Oximetry 08/16/19 08/16/19 08/16/19 01:15 01:30 01:45 Temperature Pulse Rate 96 H 97 H 97 H Pulse Rate [ From Monitor] Respiratory 17 18 19 Rate Blood Pressure 83/38 90/54 90/54 O2 Sat by Pulse 97 98 96 Oximetry 08/16/19 08/16/19 08/16/19 02:01 02:15 02:31 Temperature Pulse Rate 98 H 102 H 98 H Pulse Rate [ From Monitor] Respiratory 20 19 20 Rate Blood Pressure 85/58 86/57 120/46 O2 Sat by Pulse 91 92 93 Oximetry 08/16/19 08/16/19 08/16/19 02:45 03:01 03:14 Temperature 100.2 F H Pulse Rate 99 H 101 H Pulse Rate [ From Monitor] Respiratory 20 18 Rate Blood Pressure 120/46 101/61 O2 Sat by Pulse 93 94 Oximetry 08/16/19 08/16/19 08/16/19 03:15 03:30 03:45 Temperature Pulse Rate 101 H 100 H 100 H Pulse Rate [ From Monitor] Respiratory 19 19 18 Rate Blood Pressure 101/61 87/60 86/62 O2 Sat by Pulse 97 96 95 Oximetry 08/16/19 08/16/19 04:00 04:23 Temperature Pulse Rate 100 H 101 H Pulse Rate [ 100 H From Monitor] Respiratory 19 Rate Blood Pressure 88/61 100/61 O2 Sat by Pulse 96 Oximetry General appearance: Present: mild distress, well-nourished - EENT Eyes: PERRL, EOM intact ENT: hearing intact, clear oral mucosa Ears: bilateral: normal - Neck Neck: supple, normal ROM - Respiratory Respiratory effort: normal Respiratory: bilateral: CTA, rales - Breasts Breasts: normal - Cardiovascular Heart rate: 88 Rhythm: regular Heart Sounds: Present: S1 & S2. Absent: gallop, rub Extremities: pulses intact, No edema, normal color, Full ROM - Gastrointestinal General gastrointestinal: Present: soft, non-tender, non-distended, normal bowel sounds - Genitourinary Male genitourinary: normal - Integumentary Integumentary: clear, warm, dry - Musculoskeletal Musculoskeletal: 1, strength equal bilaterally - Neurologic Neurologic: moves all extremities - Psychiatric Psychiatric: other (Sedated) - Allied health notes Allied health notes reviewed: nursing, case management - Labs CBC & Chem 7: 08/15/19 04:12 08/15/19 04:12 Labs: Abnormal lab results 08/15/19 08/15/19 08/15/19 Range/Units 12:07 12:14 12:14 Heparin Anti-Xa Level 0.10 L (0.3-0.7) U.I./ml POC Glucose 121 H (70-105) Total Creatine Kinase 2255 H (55-170) units/L CK-MB (CK-2) > 300.0 H (0.0-4.0) ng/mL CK-MB (CK-2) Rel Index 13.3 H (0-4) Troponin T 6.990 H* D (0.00-0.029) ng/mL NT-Pro-B Natriuret Pep (0-900) pg/mL 08/15/19 08/15/19 Range/Units 12:14 23:03 Heparin Anti-Xa Level 0.12 L (0.3-0.7) U.I./ml POC Glucose (70-105) Total Creatine Kinase (55-170) units/L CK-MB (CK-2) (0.0-4.0) ng/mL CK-MB (CK-2) Rel Index (0-4) Troponin T (0.00-0.029) ng/mL NT-Pro-B Natriuret Pep 8074 H (0-900) pg/mL - Imaging and cardiology EKG: report reviewed (ST elevation VT ) Chest x-ray: report reviewed
--- NOTE | 2019-08-16 05:21 | XRay Report ---
CHEST 1 VIEW 1:57 AM INDICATION / CLINICAL INFORMATION: follow up respiratory failure. COMPARISON: 08/15/19 FINDINGS: SUPPORT DEVICES: Unchanged. HEART / MEDIASTINUM: Stable. LUNGS / PLEURA: Bilateral pulmonary opacities are unchanged. Right apical pulmonary blebs is unchange d. No pneumothorax. ADDITIONAL FINDINGS: No significant additional findings. IMPRESSION: 1. No significant change. Signer Name: Samson Sheppard MD Signed: 08/16/2019 5:16 AM Workstation Name: [id number]
[2019-08-16] MEDS: NITROGLYCERIN 2% OINT 1 GM TP SCH ×4 (05:45→19:10)
[2019-08-16] MEDS: fentaNYL DRIP Premix 2,000 MCG/100 ML BAG IV SCH ×3 (06:11→19:48)
[2019-08-16] MEDS: PANTOPRAZOLE 40 MG TAB PO SCH (09:33)
[2019-08-16] MEDS: ACETAMINOPHEN 325 MG TAB PO PRN ×2 (09:33→19:26)
[2019-08-16] MEDS: CLOPIDOGREL 75 MG TAB PO SCH (09:34)
[2019-08-16] MEDS: HYDROXYCHLOROQUINE 200 MG TAB PO SCH ×2 (09:46→21:36)
--- NOTE | 2019-08-16 11:06 | Progress Note ---
Assessment and Plan Acute STEMI while hospitalized s/p TPA ECG post TPA shows successful reperfusion with marked reduction in the ST segment elevation. Respiratory failure -intubated on the vent Sepsis -COVID-19 results are pending Recommendations: Continue aggressive management with aspirin, Plavix, intravenous heparin, beta- blockers, nitrates and statin as tolerated. Further cardiac management will depend on clinical course with regards to the sepsis and respiratory failure. Subjective Date of service: 08/16/19 Principal diagnosis: Bilateral pneumonia,STEMI Interval history: Patient is intubated and unresponsive on the vent. PUI?: Yes COVID19: Pending Objective Vital Signs Temp Pulse Pulse Pulse Resp BP Pulse Ox 08/16/19 08:40 99 H 106/66 91 08/16/19 08:00 102.1 F H 08/16/19 06:15 99 H 22 106/66 91 08/16/19 06:01 97 H 20 106/66 90 08/16/19 05:45 94 H 19 87/58 93 08/16/19 05:30 92 H 19 87/58 93 08/16/19 05:15 92 H 15 104/58 94 08/16/19 05:07 90 104/58 93 08/16/19 05:00 90 18 104/58 94 08/16/19 04:45 91 H 19 94/65 95 08/16/19 04:30 101 H 18 97/73 95 08/16/19 04:23 101 H 100/61 08/16/19 04:15 102 H 19 100/61 94 08/16/19 04:00 100 H 100 H 19 88/61 96 08/16/19 03:45 100 H 18 86/62 95 08/16/19 03:30 100 H 19 87/60 96 08/16/19 03:15 101 H 19 101/61 97 08/16/19 03:14 100.2 F H 08/16/19 03:01 101 H 18 101/61 94 08/16/19 02:45 99 H 20 120/46 93 08/16/19 02:31 98 H 20 120/46 93 08/16/19 02:15 102 H 19 86/57 92 08/16/19 02:01 98 H 20 85/58 91 08/16/19 01:45 97 H 19 90/54 96 08/16/19 01:30 97 H 18 90/54 98 04/13/20 01:15 96 H 17 83/38 97 08/16/19 01:01 95 H 17 83/38 97 08/16/19 00:45 95 H 18 100/40 97 08/16/19 00:33 96 H 100/40 97 08/16/19 00:31 95 H 17 100/40 97 08/16/19 00:15 97 H 17 96/64 97 08/16/19 00:01 98 H 16 96/64 97 08/16/19 00:00 99 H 99 H 20 97 08/15/19 23:45 101 H 20 120/58 95 08/15/19 23:31 106 H 24 120/58 93 08/15/19 23:27 108 H 24 130/83 92 08/15/19 23:26 101.4 F H 08/15/19 23:15 108 H 26 H 130/83 90 08/15/19 23:01 107 H 26 H 111/70 91 08/15/19 22:45 106 H 22 122/74 96 08/15/19 22:31 104 H 21 122/74 91 08/15/19 22:15 103 H 22 110/70 08/15/19 22:01 101 H 22 110/70 08/15/19 21:45 99 H 20 121/44 89 08/15/19 21:31 98 H 20 112/67 86 08/15/19 21:15 95 H 16 112/69 08/15/19 21:01 96 H 20 112/69 08/15/19 20:45 99 H 20 124/81 91 08/15/19 20:41 100 H 124/81 90 08/15/19 20:30 106 H 20 124/81 91 08/15/19 20:23 107 H 113/80 08/15/19 20:15 106 H 19 116/76 94 08/15/19 20:00 100.2 F H 105 H 105 H 22 116/76 93 08/15/19 19:45 103 H 18 121/73 87 08/15/19 19:31 102 H 18 132/56 90 08/15/19 19:15 100 H 14 120/75 89 08/15/19 19:00 99 H 16 120/75 91 08/15/19 18:45 99 H 15 122/77 90 08/15/19 18:30 98 H 17 122/77 87 08/15/19 18:15 101 H 20 105/70 82 L 08/15/19 18:01 96 H 18 105/70 88 08/15/19 17:45 101 H 20 125/84 86 08/15/19 17:30 94 H 17 121/76 91 08/15/19 17:15 90 12 104/69 87 08/15/19 17:01 96 H 18 104/69 08/15/19 16:45 88 11 L 104/69 97 08/15/19 16:30 87 11 L 96/65 96 08/15/19 16:24 95 H 121/76 91 08/15/19 16:15 87 16 89/62 97 08/15/19 16:00 88 16 89/62 97 08/15/19 15:45 86 14 118/41 97 08/15/19 15:31 87 15 118/41 97 08/15/19 15:15 88 13 109/33 96 08/15/19 15:01 86 17 109/33 95 08/15/19 14:45 86 11 L 88/63 90 08/15/19 14:31 85 11 L 88/63 96 08/15/19 14:15 87 8 L 106/70 96 08/15/19 14:00 93 H 16 106/70 97 08/15/19 13:45 97 H 10 L 106/73 97 08/15/19 13:38 98 H 97/72 08/15/19 13:33 98 H 12 96 08/15/19 13:18 100 H 9 L 96 08/15/19 12:40 120 H 116/82 08/15/19 12:33 101 H 103/75 96 08/15/19 12:00 99.2 F 08/15/19 11:30 104 H 9 L 107/74 96 08/15/19 11:15 103 H 9 L 98/73 96 - Physical Examination General: Other (intubated on the vent) Cardiac: Positive: Reg Rate and Rhythm Neuro: Positive: Other (Unresponsive, on the vent) - Labs and Meds Cardiac Enzymes 08/15/19 Range/Units 12:14 CK-MB (CK-2) > 300.0 H (0.0-4.0) ng/mL
[2019-08-16] MEDS: cefTRIAXone/NS 2 GM/100 ML 2 GM/100 ML BAG IV SCH (11:25)
[2019-08-16] MEDS ORDERED: FUROSEMIDE 40 MG/4 ML INJ IV NR (11:27)
--- NOTE | 2019-08-16 11:33 | Progress Note ---
Assessment and Plan 64 y/o male with acute respiratory failure, concern for COVID 19 causing pneumonia, then with cardiac arrest x2 from acute [place] status post TPA therapy last night, sedated on the vent. 1. Ok to order PICC line if needed. Has been 24 hours POST TPA. 2. CV-STEMI status post TPA on 08/14. EKG resolved. Unable to get echo but BNP was 8k. Will given lasix 40 now that off levo, but spoke with nursing as he may need it again. Would prefer not to give volume as we are trying to remove. Rads read CXR as stable but I feel it is slightly worse than admit. 3. Resp-will do a trial of APRV with permissive hypercapnea. as long as pH is greater than 7.20 we are ok. Repeat ABG later today. RT to attempt art line at bedside. 4. Repeat labs tomorrow. 5. Overal prognosis is guarded Will speak with . CCT 31 minutes. Subjective Date of service: 08/16/19 Principal diagnosis: Bilateral pneumonia,STEMI Interval history: Had to go back up to 100% fiO2 sometime yesterday afternoon. Still with sats in the high 80's. RT at bedside and will try APRV. Placed on PHigh of 28 and now has sat of 91. T high is 4 PUI?: Yes COVID19: Pending Objective Vital Signs - 12hr 08/15/19 08/15/19 08/16/19 23:31 23:45 00:00 Temperature Pulse Rate 106 H 101 H 99 H Pulse Rate [ 99 H From Monitor] Respiratory 24 20 20 Rate Blood Pressure 120/58 120/58 O2 Sat by Pulse 93 95 97 Oximetry 08/16/19 08/16/19 08/16/19 00:01 00:15 00:31 Temperature Pulse Rate 98 H 97 H 95 H Pulse Rate [ From Monitor] Respiratory 16 17 17 Rate Blood Pressure 96/64 96/64 100/40 O2 Sat by Pulse 97 97 97 Oximetry 08/16/19 08/16/19 08/16/19 00:33 00:45 01:01 Temperature Pulse Rate 96 H 95 H 95 H Pulse Rate [ From Monitor] Respiratory 18 17 Rate Blood Pressure 100/40 100/40 83/38 O2 Sat by Pulse 97 97 97 Oximetry 08/16/19 08/16/19 08/16/19 01:15 01:30 01:45 Temperature Pulse Rate 96 H 97 H 97 H Pulse Rate [ From Monitor] Respiratory 17 18 19 Rate Blood Pressure 83/38 90/54 90/54 O2 Sat by Pulse 97 98 96 Oximetry 08/16/19 08/16/19 08/16/19 02:01 02:15 02:31 Temperature Pulse Rate 98 H 102 H 98 H Pulse Rate [ From Monitor] Respiratory 20 19 20 Rate Blood Pressure 85/58 86/57 120/46 O2 Sat by Pulse 91 92 93 Oximetry 08/16/19 08/16/19 08/16/19 02:45 03:01 03:14 Temperature 100.2 F H Pulse Rate 99 H 101 H Pulse Rate [ From Monitor] Respiratory 20 18 Rate Blood Pressure 120/46 101/61 O2 Sat by Pulse 93 94 Oximetry 08/16/19 08/16/19 08/16/19 03:15 03:30 03:45 Temperature Pulse Rate 101 H 100 H 100 H Pulse Rate [ From Monitor] Respiratory 19 19 18 Rate Blood Pressure 101/61 87/60 86/62 O2 Sat by Pulse 97 96 95 Oximetry 08/16/19 08/16/19 08/16/19 04:00 04:15 04:23 Temperature Pulse Rate 100 H 102 H 101 H Pulse Rate [ 100 H From Monitor] Respiratory 19 19 Rate Blood Pressure 88/61 100/61 100/61 O2 Sat by Pulse 96 94 Oximetry 08/16/19 08/16/19 08/16/19 04:30 04:45 05:00 Temperature Pulse Rate 101 H 91 H 90 Pulse Rate [ From Monitor] Respiratory 18 19 18 Rate Blood Pressure 97/73 94/65 104/58 O2 Sat by Pulse 95 95 94 Oximetry 08/16/19 08/16/19 08/16/19 05:07 05:15 05:30 Temperature Pulse Rate 90 92 H 92 H Pulse Rate [ From Monitor] Respiratory 15 19 Rate Blood Pressure 104/58 104/58 87/58 O2 Sat by Pulse 93 94 93 Oximetry 08/16/19 08/16/19 08/16/19 05:45 06:01 06:15 Temperature Pulse Rate 94 H 97 H 99 H Pulse Rate [ From Monitor] Respiratory 19 20 22 Rate Blood Pressure 87/58 106/66 106/66 O2 Sat by Pulse 93 90 91 Oximetry 08/16/19 08/16/19 08/16/19 06:30 06:45 07:00 Temperature Pulse Rate 100 H 101 H 102 H Pulse Rate [ From Monitor] Respiratory 20 22 22 Rate Blood Pressure 101/71 101/71 110/66 O2 Sat by Pulse 92 93 92 Oximetry 08/16/19 08/16/19 08/16/19 07:15 07:31 07:45 Temperature Pulse Rate 104 H 105 H 106 H Pulse Rate [ From Monitor] Respiratory 23 23 22 Rate Blood Pressure 101/71 123/68 120/68 O2 Sat by Pulse 93 91 91 Oximetry 08/16/19 08/16/19 08/16/19 08:00 08:01 08:15 Temperature 102.1 F H Pulse Rate 107 H 108 H Pulse Rate [ From Monitor] Respiratory 23 25 H Rate Blood Pressure 128/68 117/74 O2 Sat by Pulse 91 90 Oximetry 08/16/19 08/16/19 08/16/19 08:31 08:40 08:45 Temperature Pulse Rate 107 H 99 H 110 H Pulse Rate [ From Monitor] Respiratory 24 25 H Rate Blood Pressure 121/68 106/66 128/68 O2 Sat by Pulse 88 91 90 Oximetry 08/16/19 08/16/19 08/16/19 09:01 09:15 09:31 Temperature Pulse Rate 102 H 94 H 101 H Pulse Rate [ From Monitor] Respiratory 22 21 26 H Rate Blood Pressure 140/71 140/71 128/67 O2 Sat by Pulse 83 L 68 L 80 L Oximetry 08/16/19 08/16/19 08/16/19 09:45 10:01 10:15 Temperature Pulse Rate 100 H 95 H 92 H Pulse Rate [ From Monitor] Respiratory 20 15 14 Rate Blood Pressure 148/37 101/56 101/56 O2 Sat by Pulse 87 90 92 Oximetry 08/16/19 08/16/19 08/16/19 10:31 10:45 11:01 Temperature Pulse Rate 89 90 91 H Pulse Rate [ From Monitor] Respiratory 16 17 16 Rate Blood Pressure 94/53 94/53 104/45 O2 Sat by Pulse 85 84 90 Oximetry 08/16/19 11:14 Temperature Pulse Rate 91 H Pulse Rate [ From Monitor] Respiratory Rate Blood Pressure 104/45 O2 Sat by Pulse 96 Oximetry Constitutional: comatose (secondary to medications we are giving) Eyes: non-icteric ENT: other (orally intubated and sedated) Neck: supple Effort: normal Ascultation: Bilateral: rales Percussion: Bilateral: not dull Cardiovascular: other (sinus tach) Gastrointestinal: normoactive bowel sounds, soft Extremities: no edema Neurologic: unable to assess CBC and BMP: 08/15/19 04:12 08/15/19 04:12 ABG, PT/INR, D-dimer: ABG ABG pH 7.362 pH Units (7.350-7.450) 08/15/19 02:26 ABG pCO2 36.6 mm Hg 08/15/19 02:26 ABG pO2 57.8 mm Hg (80.0-90.0) L 08/15/19 02:26 ABG O2 Saturation 89.4 % (95.0-99.0) L 08/15/19 02:26 PT/INR, D-dimer PT 34.0 Sec. (12.2-14.9) H 08/15/19 02:25 INR 3.26 (0.87-1.13) H 08/15/19 02:25 D-Dimer 835.18 ng/mlDDU (0-234) H 08/15/19 02:25 Abnormal lab findings: Abnormal Labs 08/14/19 08/14/19 08/14/19 13:27 13:27 13:27 WBC 12.2 H RBC 5.47 H Hct 46.1 H MCH 27 L MCHC RDW 17.6 H Lymph % (Auto) Lymph # Seg Neutrophils % Seg Neuts % (Manual) 93.0 H Lymphocytes % (Manual) 3.0 L Seg Neutrophils # Seg Neutrophils # Man 11.3 H Lymphocytes # (Manual) 0.4 L Monocytes # (Manual) PT INR APTT D-Dimer Heparin Anti-Xa Level ABG pH ABG pO2 ABG O2 Saturation ABG Base Excess ABG Hemoglobin Oxyhemoglobin Sodium 134 L Potassium 3.5 L Chloride 94.7 L Carbon Dioxide 17 L BUN 22 H Glucose 104 H POC Glucose Lactic Acid 2.60 H* Calcium Ferritin AST 43 H Lactate Dehydrogenase Total Creatine Kinase CK-MB (CK-2) CK-MB (CK-2) Rel Index Troponin T C-Reactive Protein NT-Pro-B Natriuret Pep Total Protein 9.0 H Albumin 3.7 L Triglycerides 08/14/19 08/14/19 08/14/19 13:27 13:27 13:27 WBC RBC Hct MCH MCHC RDW Lymph % (Auto) Lymph # Seg Neutrophils % Seg Neuts % (Manual) Lymphocytes % (Manual) Seg Neutrophils # Seg Neutrophils # Man Lymphocytes # (Manual) Monocytes # (Manual) PT INR APTT D-Dimer 6296.21 H Heparin Anti-Xa Level ABG pH ABG pO2 ABG O2 Saturation ABG Base Excess ABG Hemoglobin Oxyhemoglobin Sodium Potassium Chloride Carbon Dioxide BUN Glucose POC Glucose Lactic Acid Calcium Ferritin 1633.0 H AST Lactate Dehydrogenase 651 H Total Creatine Kinase CK-MB (CK-2) CK-MB (CK-2) Rel Index Troponin T C-Reactive Protein 22.20 H NT-Pro-B Natriuret Pep Total Protein Albumin Triglycerides 08/14/19 08/15/19 08/15/19 16:25 02:25 02:25 WBC RBC Hct MCH MCHC RDW Lymph % (Auto) Lymph # Seg Neutrophils % Seg Neuts % (Manual) Lymphocytes % (Manual) Seg Neutrophils # Seg Neutrophils # Man Lymphocytes # (Manual) Monocytes # (Manual) PT INR APTT D-Dimer 835.18 H Heparin Anti-Xa Level ABG pH 7.303 L ABG pO2 223.6 H ABG O2 Saturation 99.3 H ABG Base Excess -5.5 L ABG Hemoglobin Oxyhemoglobin Sodium Potassium Chloride Carbon Dioxide BUN Glucose POC Glucose Lactic Acid Calcium Ferritin 1885.0 H AST Lactate Dehydrogenase Total Creatine Kinase CK-MB (CK-2) CK-MB (CK-2) Rel Index Troponin T C-Reactive Protein NT-Pro-B Natriuret Pep Total Protein Albumin Triglycerides 08/15/19 08/15/19 08/15/19 02:25 02:25 02:25 WBC 13.7 H RBC Hct MCH 27 L MCHC RDW 17.6 H Lymph % (Auto) Lymph # Seg Neutrophils % Seg Neuts % (Manual) 83.0 H Lymphocytes % (Manual) 10.0 L Seg Neutrophils # Seg Neutrophils # Man 11.4 H Lymphocytes # (Manual) Monocytes # (Manual) 1.0 H PT INR APTT D-Dimer Heparin Anti-Xa Level ABG pH ABG pO2 ABG O2 Saturation ABG Base Excess ABG Hemoglobin Oxyhemoglobin Sodium Potassium Chloride Carbon Dioxide BUN Glucose POC Glucose Lactic Acid Calcium Ferritin AST Lactate Dehydrogenase 732 H Total Creatine Kinase 644 H CK-MB (CK-2) 69.8 H CK-MB (CK-2) Rel Index 10.8 H Troponin T 0.352 H* C-Reactive Protein 24.30 H NT-Pro-B Natriuret Pep Total Protein Albumin Triglycerides 219 H 08/15/19 08/15/19 08/15/19 02:25 02:25 02:26 WBC RBC Hct MCH MCHC RDW Lymph % (Auto) Lymph # Seg Neutrophils % Seg Neuts % (Manual) Lymphocytes % (Manual) Seg Neutrophils # Seg Neutrophils # Man Lymphocytes # (Manual) Monocytes # (Manual) PT 34.0 H INR 3.26 H APTT 61.5 H* D-Dimer Heparin Anti-Xa Level ABG pH ABG pO2 57.8 L ABG O2 Saturation 89.4 L ABG Base Excess -4.5 L ABG Hemoglobin 13.6 L Oxyhemoglobin 88.1 L Sodium 135 L Potassium Chloride Carbon Dioxide 19 L BUN 26 H Glucose 113 H POC Glucose Lactic Acid Calcium Ferritin AST Lactate Dehydrogenase Total Creatine Kinase CK-MB (CK-2) CK-MB (CK-2) Rel Index Troponin T C-Reactive Protein NT-Pro-B Natriuret Pep Total Protein Albumin Triglycerides 08/15/19 08/15/19 08/15/19 04:12 04:12 12:07 WBC 12.8 H RBC Hct MCH 27 L MCHC 31 L RDW 17.5 H Lymph % (Auto) 8.5 L Lymph # 1.1 L Seg Neutrophils % 86.9 H Seg Neuts % (Manual) Lymphocytes % (Manual) Seg Neutrophils # 11.1 H Seg Neutrophils # Man Lymphocytes # (Manual) Monocytes # (Manual) PT INR APTT D-Dimer Heparin Anti-Xa Level ABG pH ABG pO2 ABG O2 Saturation ABG Base Excess ABG Hemoglobin Oxyhemoglobin Sodium 136 L Potassium Chloride Carbon Dioxide 18 L BUN 26 H Glucose 142 H POC Glucose 121 H Lactic Acid Calcium 8.1 L Ferritin AST Lactate Dehydrogenase Total Creatine Kinase 613 H CK-MB (CK-2) 66.1 H CK-MB (CK-2) Rel Index 10.7 H Troponin T 0.586 H* D C-Reactive Protein NT-Pro-B Natriuret Pep Total Protein Albumin Triglycerides 08/15/19 08/15/19 08/15/19 12:14 12:14 12:14 WBC RBC Hct MCH MCHC RDW Lymph % (Auto) Lymph # Seg Neutrophils % Seg Neuts % (Manual) Lymphocytes % (Manual) Seg Neutrophils # Seg Neutrophils # Man Lymphocytes # (Manual) Monocytes # (Manual) PT INR APTT D-Dimer Heparin Anti-Xa Level 0.10 L ABG pH ABG pO2 ABG O2 Saturation ABG Base Excess ABG Hemoglobin Oxyhemoglobin Sodium Potassium Chloride Carbon Dioxide BUN Glucose POC Glucose Lactic Acid Calcium Ferritin AST Lactate Dehydrogenase Total Creatine Kinase 2255 H CK-MB (CK-2) > 300.0 H CK-MB (CK-2) Rel Index 13.3 H Troponin T 6.990 H* D C-Reactive Protein NT-Pro-B Natriuret Pep 8074 H Total Protein Albumin Triglycerides 08/15/19 08/16/19 23:03 07:10 WBC RBC Hct MCH MCHC RDW Lymph % (Auto) Lymph # Seg Neutrophils % Seg Neuts % (Manual) Lymphocytes % (Manual) Seg Neutrophils # Seg Neutrophils # Man Lymphocytes # (Manual) Monocytes # (Manual) PT INR APTT D-Dimer Heparin Anti-Xa Level 0.12 L 0.11 L ABG pH ABG pO2 ABG O2 Saturation ABG Base Excess ABG Hemoglobin Oxyhemoglobin Sodium Potassium Chloride Carbon Dioxide BUN Glucose POC Glucose Lactic Acid Calcium Ferritin AST Lactate Dehydrogenase Total Creatine Kinase CK-MB (CK-2) CK-MB (CK-2) Rel Index Troponin T C-Reactive Protein NT-Pro-B Natriuret Pep Total Protein Albumin Triglycerides
--- NOTE | 2019-08-16 11:39 | Progress Note ---
Assessment and Plan Cultures: 08/14/2019 Blood culture: no growth 08/14/2019 sputum culture: contaminated with saliva A/P: 64 yo M PMHx hypertension, rheumatoid arthritis admitted with concern for COVID- 19, with subsequent STEMI: #COVID-19 rule out: follow up testing. Continue isolation precautions. Complete hydroxychloroquine as empiric therapy. Inflammatory markers elevated, though difficult to interpret in cardiac arrest scenario. #Acute respiratory failure, bilateral pneumonia: continue ceftriaxone. ?CHF. #STEMI: s/p alteplase Recs: - Reasonable to complete 5 total days of Plaquenil - Continue empiric IV Ceftriaxone - Follow up COVID-19 test results Arjun Quinonez MD, FACP [facility] ([facility] C: [phone] O: [phone] F: [phone] Subjective Date of service: 08/16/19 Principal diagnosis: Bilateral pneumonia,STEMI Interval history: Fever +. Remains intubated, sedated, on the vent. PUI?: Yes COVID19: Pending Objective - Exam Narrative Exam: Physical Exam (reviewed in chart due to PPE conservation) Constitutional: intubated, sedated, on the vent Head, Ears, Nose: normocephalic, atraumatic Eyes: limited due to PPE conservation strategy Neck: intubated Oral: intubated Cardiovascular: limited due to PPE conservation strategy Respiratory: limited due to PPE conservation strategy GI: limited due to PPE conservation strategy Musculoskeletal: limited due to PPE conservation strategy Skin: limited due to PPE conservation strategy Hem/Lymphatic: limited due to PPE conservation strategy Psych: no agitation Neurological: sedated, intubated, on the vent, exam limited - Constitutional Vitals: Vital Signs Temp Pulse Resp BP Pulse Ox 102.1 F H 91 H 16 104/45 96 08/16/19 08:00 08/16/19 11:14 08/16/19 11:01 08/16/19 11:14 08/16/19 11:14 Temperature -Last 24 Hours Temperature 102.1 F Temperature 100.2 F Temperature 101.4 F Temperature 100.2 F Temperature 99.2 F - Labs CBC & Chem 7: 08/15/19 04:12 08/15/19 04:12 Labs: Abnormal lab results 08/15/19 08/15/19 08/15/19 Range/Units 12:07 12:14 12:14 Heparin Anti-Xa Level 0.10 L (0.3-0.7) U.I./ml POC Glucose 121 H (70-105) Total Creatine Kinase 2255 H (55-170) units/L CK-MB (CK-2) > 300.0 H (0.0-4.0) ng/mL CK-MB (CK-2) Rel Index 13.3 H (0-4) Troponin T 6.990 H* D (0.00-0.029) ng/mL NT-Pro-B Natriuret Pep (0-900) pg/mL 08/15/19 08/15/19 08/16/19 Range/Units 12:14 23:03 07:10 Heparin Anti-Xa Level 0.12 L 0.11 L (0.3-0.7) U.I./ml POC Glucose (70-105) Total Creatine Kinase (55-170) units/L CK-MB (CK-2) (0.0-4.0) ng/mL CK-MB (CK-2) Rel Index (0-4) Troponin T (0.00-0.029) ng/mL NT-Pro-B Natriuret Pep 8074 H (0-900) pg/mL - Imaging and cardiology Chest x-ray: report reviewed, image reviewed (diffuse b/l infiltrates)
[2019-08-16] MEDS: HEPARIN/ 0.45% NACL DRIP 25,000 UNIT/500 ML BAG IV SCH (11:49)
[2019-08-16] MEDS: SODIUM CHLORIDE 0.9% 1000 ML 1,000 ML IV SCH (13:31)
[2019-08-16 13:58] LABS: ABG Base Excess -8.4 mmol/L (-2.0-3.0); ABG HCO3 19.6 mmol/L (20.0-26.0); ABG Methemoglobin 0.7 % (0.0-1.5); ABG Oxygen Saturation 92.6 % (95.0-99.0); ABG PCO2 51.3 mm Hg; ABG PH 7.2 pH Units (7.350-7.450); ABG PO2 77.8 mm Hg (80.0-90.0)
[2019-08-16] MEDS: NORepinephrine/NS 4 MG-250 ML 4 MG/250 ML BAG IV SCH (14:55)
--- NOTE | 2019-08-16 16:18 | Progress Note ---
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 Patient was not wearing a mask. Per patient's primary care physician he was cautioned about social distancing, wearing mask, the office being closed so that there is no exposure to coronavirus. In spite of many people telling him not to go to work-patient has been going to work. Developed fever and diarrhea for last 5 days but did not seek any medical attention. His called the primary care doctor the morning about the fever and diarrhea and the patient was asked to come to the emergency room for evaluation. In the emergency room patient had low oxygen saturations in the high fever and oxygenation levels were not improving with high flow oxygen and was intubated for respiratory support. states that there were 2 patients with coronavirus at work. Overnite patient had ST elevation [place] .Was given TPA and IV Heparin.Not cathed b/c of resp failure and being unstable. Cardiology evaluated the patient and considering respiratory failure, septic shock TPA was chosen as method of treatment for this patient. - Patient Problems (1) STEMI (ST elevation myocardial infarction) Current Visit: Yes Status: Acute Plan to address problem: S/p TPA and iV Heparin drip Cardiology consult appreciated (2) Acute respiratory failure Current Visit: Yes Status: Acute Qualifiers: Respiratory failure complication: hypoxia Qualified Code(s): J96.01 - Acute respiratory failure with hypoxia Plan to address problem: Patient intubated Vent management Slab Installer consulted, per input attempted to remove fluids with Lasix as patient has been weaned off Levophed successfully. Patient sedated (3) Bilateral pneumonia Current Visit: Yes Status: Acute Plan to address problem: Patient initiated on IV ceftriaxone and chloroquine Covid result pending Inflammatory markers worsening, though difficult to interpret in code blue scenario (4) Sepsis with shock syndrome secondary to COVID 19 induced viral pneumonia Current Visit: Yes Status: Acute Plan to address problem: IV antibiotics and chloroquine ID consult (5) COVID 19 induced pneumonia Current Visit: Yes Status: Acute Plan to address problem: ID following. Continue monitoring markers. (6) Rheumatoid arthritis Current Visit: Yes Status: Chronic Qualifiers: Rheumatoid arthritis location: knee Rheumatoid factor presence: with rheumatoid factor Laterality: bilateral Qualified Code(s): M05.761 - Rheumatoid arthritis with rheumatoid factor of right knee without organ or sy stems involvement; M05.762 - Rheumatoid arthritis with rheumatoid factor of left knee without organ or systems involvement Plan to address problem: Patient is on methotrexate and prednisone We will discuss with ID and restart them (7) Volume depletion, gastrointestinal loss Current Visit: Yes Status: Acute Plan to address problem: Avoid rehydration at this point. As patient does appear to be fluid overloaded per x-ray review. (8) DVT prophylaxis Current Visit: Yes Status: Acute Plan to address problem: SCDs and GI prophylaxis Critical care time 35 minutes History Interval history: Patient seen and examined examination limited due to PPE. Patient remains on full ventilatory support. PUI?: Yes COVID19: Positive Hospitalist Physical - Physical exam Narrative exam: Physical exam per emergency medical services coordinator review due to limited PPE Constitutional: comatose (secondary to medications we are giving) Eyes: non-icteric ENT: other (orally intubated and sedated) Neck: supple Effort: normal Ascultation: Bilateral: rales Percussion: Bilateral: not dull Cardiovascular: other (sinus tach) Gastrointestinal: normoactive bowel sounds, soft Extremities: no edema Neurologic: unable to assess - Constitutional Vitals: Temp Pulse Resp BP Pulse Ox 100.0 F H 92 H 11 L 85/64 98 08/16/19 12:00 08/16/19 15:30 08/16/19 15:30 08/16/19 15:30 08/16/19 15:30 General appearance: Present: mild distress, well-nourished Results - Labs CBC & Chem 7: 08/15/19 04:12 08/15/19 04:12 Labs: Laboratory Last Values WBC 12.8 K/mm3 (4.5-11.0) H 08/15/19 04:12 RBC 4.65 M/mm3 (3.65-5.03) 08/15/19 04:12 Hgb 12.5 gm/dl (11.8-15.2) 08/15/19 04:12 Hct 40.3 % (35.5-45.6) 08/15/19 04:12 MCV 87 fl (84-94) 08/15/19 04:12 MCH 27 pg (28-32) L 08/15/19 04:12 MCHC 31 % (32-34) L 08/15/19 04:12 RDW 17.5 % (13.2-15.2) H 08/15/19 04:12 Plt Count 159 K/mm3 (140-440) 08/15/19 04:12 Lymph % (Auto) 8.5 % (13.4-35.0) L 08/15/19 04:12 Thayer % (Auto) 4.3 % (0.0-7.3) 08/15/19 04:12 Eos % (Auto) 0.1 % (0.0-4.3) 08/15/19 04:12 Baso % (Auto) 0.2 % (0.0-1.8) 08/15/19 04:12 Lymph # 1.1 K/mm3 (1.2-5.4) L 08/15/19 04:12 Thayer # 0.5 K/mm3 (0.0-0.8) 08/15/19 04:12 Eos # 0.0 K/mm3 (0.0-0.4) 08/15/19 04:12 Baso # 0.0 K/mm3 (0.0-0.1) 08/15/19 04:12 Add Manual Diff Complete 08/15/19 02:25 Total Counted 100 08/15/19 02:25 Seg Neutrophils % 86.9 % (40.0-70.0) H 08/15/19 04:12 Seg Neuts % (Manual) 83.0 % (40.0-70.0) H 08/15/19 02:25 Band Neutrophils % 0 % 08/15/19 02:25 Lymphocytes % (Manual) 10.0 % (13.4-35.0) L 08/15/19 02:25 Reactive Lymphs % (Man) 0 % 08/15/19 02:25 Monocytes % (Manual) 7.0 % (0.0-7.3) 08/15/19 02:25 Eosinophils % (Manual) 0 % (0.0-4.3) 08/15/19 02:25 Basophils % (Manual) 0 % (0.0-1.8) 08/15/19 02:25 Metamyelocytes % 0 % 08/15/19 02:25 Myelocytes % 0 % 08/15/19 02:25 Promyelocytes % 0 % 08/15/19 02:25 Blast Cells % 0 % 08/15/19 02:25 Nucleated RBC % Not Reportable 08/15/19 02:25 Seg Neutrophils # 11.1 K/mm3 (1.8-7.7) H 08/15/19 04:12 Seg Neutrophils # Man 11.4 K/mm3 (1.8-7.7) H 08/15/19 02:25 Band Neutrophils # 0.0 K/mm3 08/15/19 02:25 Lymphocytes # (Manual) 1.4 K/mm3 (1.2-5.4) 08/15/19 02:25 Abs React Lymphs (Man) 0.0 K/mm3 08/15/19 02:25 Monocytes # (Manual) 1.0 K/mm3 (0.0-0.8) H 08/15/19 02:25 Eosinophils # (Manual) 0.0 K/mm3 (0.0-0.4) 08/15/19 02:25 Basophils # (Manual) 0.0 K/mm3 (0.0-0.1) 08/15/19 02:25 Metamyelocytes # 0.0 K/mm3 08/15/19 02:25 Myelocytes # 0.0 K/mm3 08/15/19 02:25 Promyelocytes # 0.0 K/mm3 08/15/19 02:25 Blast Cells # 0.0 K/mm3 08/15/19 02:25 WBC Morphology Not Reportable 08/15/19 02:25 Hypersegmented Neuts Not Reportable 08/15/19 02:25 Hyposegmented Neuts Not Reportable 08/15/19 02:25 Hypogranular Neuts Not Reportable 08/15/19 02:25 Smudge Cells Not Reportable 08/15/19 02:25 Toxic Granulation Not Reportable 08/15/19 02:25 Toxic Vacuolation Not Reportable 08/15/19 02:25 Dohle Bodies Not Reportable 08/15/19 02:25 Pelger-Huet Anomaly Not Reportable 08/15/19 02:25 Jorge A Rods Not Reportable 08/15/19 02:25 Platelet Estimate Not Reportable 08/15/19 02:25 Clumped Platelets 1+ 08/15/19 02:25 Plt Clumps, EDTA Not Reportable 08/15/19 02:25 Large Platelets Not Reportable 08/15/19 02:25 Giant Platelets 1+ 08/15/19 02:25 Platelet Satelliting Not Reportable 08/15/19 02:25 Plt Morphology Comment Not Reportable 08/15/19 02:25 RBC Morphology Not Reportable 08/15/19 02:25 Dimorphic RBCs Not Reportable 08/15/19 02:25 Polychromasia Not Reportable 08/15/19 02:25 Hypochromasia 1+ 08/15/19 02:25 Poikilocytosis Not Reportable 08/15/19 02:25 Anisocytosis 1+ 08/15/19 02:25 Microcytosis Not Reportable 08/15/19 02:25 Macrocytosis Not Reportable 08/15/19 02:25 Spherocytes Not Reportable 08/15/19 02:25 Pappenheimer Bodies Not Reportable 08/15/19 02:25 Sickle Cells Not Reportable 08/15/19 02:25 Target Cells Not Reportable 08/15/19 02:25 Tear Drop Cells Not Reportable 08/15/19 02:25 Ovalocytes Not Reportable 08/15/19 02:25 Helmet Cells Not Reportable 08/15/19 02:25 Diamond-Bee Bodies Not Reportable 08/15/19 02:25 [place] Rings Not Reportable 08/15/19 02:25 [place] Cells Not Reportable 08/15/19 02:25 Bite Cells Not Reportable 08/15/19 02:25 Crenated Cell Not Reportable 08/15/19 02:25 Elliptocytes Not Reportable 08/15/19 02:25 Acanthocytes (Spur) Not Reportable 08/15/19 02:25 Rouleaux 1+ 08/15/19 02:25 Hemoglobin C Crystals Not Reportable 08/15/19 02:25 Schistocytes Not Reportable 08/15/19 02:25 Malaria parasites Not Reportable 08/15/19 02:25 ESR 38 mm/Hr (0-20) 08/15/19 02:25 Scott Bodies Not Reportable 08/15/19 02:25 Hem Pathologist Commnt No 08/15/19 02:25 PT 34.0 Sec. (12.2-14.9) H 08/15/19 02:25 INR 3.26 (0.87-1.13) H 08/15/19 02:25 APTT 61.5 Sec. (24.2-36.6) H* 08/15/19 02:25 D-Dimer 835.18 ng/mlDDU (0-234) H 08/15/19 02:25 Heparin Anti-Xa Level < 0.10 U.I./ml (0.3-0.7) L 08/16/19 14:38 ABG pH 7.200 pH Units (7.350-7.450) L 08/16/19 13:40 ABG pCO2 51.3 mm Hg 08/16/19 13:40 ABG pO2 77.8 mm Hg (80.0-90.0) L 08/16/19 13:40 ABG HCO3 19.6 mmol/L (20.0-26.0) L 08/16/19 13:40 ABG O2 Saturation 92.6 % (95.0-99.0) L 08/16/19 13:40 ABG O2 Content 14.9 (0.0-44) 08/16/19 13:40 ABG Base Excess -8.4 mmol/L (-2.0-3.0) L 08/16/19 13:40 ABG Hemoglobin 11.6 gm/dl (14.0-18.0) L 08/16/19 13:40 ABG Carboxyhemoglobin 1.1 % (0.0-5.0) 08/16/19 13:40 ABG Methemoglobin 0.7 % (0.0-1.5) 08/16/19 13:40 Oxyhemoglobin 91.0 % (95.0-99.0) L 08/16/19 13:40 FiO2 95 % 08/16/19 13:40 Sodium 136 mmol/L (137-145) L 08/15/19 04:12 Potassium 3.7 mmol/L (3.6-5.0) 08/15/19 04:12 Chloride 103.1 mmol/L (98-107) 08/15/19 04:12 Carbon Dioxide 18 mmol/L (22-30) L 08/15/19 04:12 Anion Gap 19 mmol/L 08/15/19 04:12 BUN 26 mg/dL (9-20) H 08/15/19 04:12 Creatinine 1.4 mg/dL (0.8-1.5) 08/15/19 04:12 Estimated GFR > 60 ml/min 08/15/19 04:12 BUN/Creatinine Ratio 19 % 08/15/19 04:12 Glucose 142 mg/dL (75-100) H 08/15/19 04:12 POC Glucose 109 (70-105) H 08/16/19 12:39 Lactic Acid 1.50 mmol/L (0.7-2.0) 08/14/19 16:15 Calcium 8.1 mg/dL (8.4-10.2) L 08/15/19 04:12 Ferritin 1885.0 ng/mL (13.0-400.0) H 08/15/19 02:25 Total Bilirubin 0.30 mg/dL (0.1-1.2) 08/14/19 13:27 AST 43 units/L (5-40) H 08/14/19 13:27 ALT 18 units/L (7-56) 08/14/19 13:27 Alkaline Phosphatase 111 units/L (35-129) 08/14/19 13:27 Lactate Dehydrogenase 732 units/L (91-180) H 08/15/19 02:25 Total Creatine Kinase 2255 units/L (55-170) H 08/15/19 12:14 CK-MB (CK-2) > 300.0 ng/mL (0.0-4.0) H 08/15/19 12:14 CK-MB (CK-2) Rel Index 13.3 (0-4) H 08/15/19 12:14 Troponin T 6.990 ng/mL (0.00-0.029) H* D 08/15/19 12:14 C-Reactive Protein 24.30 mg/dL (0.00-1.30) H 08/15/19 02:25 NT-Pro-B Natriuret Pep 8074 pg/mL (0-900) H 08/15/19 12:14 Total Protein 9.0 g/dL (6.3-8.2) H 08/14/19 13:27 Albumin 3.7 g/dL (3.9-5) L 08/14/19 13:27 Albumin/Globulin Ratio 0.7 % 08/14/19 13:27 Triglycerides 219 mg/dL (2-149) H 08/15/19 02:25 Cholesterol 154 mg/dL (50-199) 08/15/19 02:25 LDL Cholesterol Direct 72 mg/dL (50-130) 08/15/19 02:25 HDL Cholesterol 42 mg/dL (40-59) 08/15/19 02:25 Cholesterol/HDL Ratio 3.66 % 08/15/19 02:25 Procalcitonin 2.62 ng/mL (<0.15) 08/15/19 02:25 Urine Color Yellow (Yellow) 08/14/19 19:40 Urine Turbidity Slightly-cloudy (Clear) 08/14/19 19:40 Urine pH 5.0 (5.0-7.0) 08/14/19 19:40 Ur Specific [place] 1.021 (1.003-1.030) 08/14/19 19:40 Urine Protein 100 mg/dl mg/dL (Negative) 08/14/19 19:40 Urine Glucose (UA) Neg mg/dL (Negative) 08/14/19 19:40 Urine Ketones Neg mg/dL (Negative) 08/14/19 19:40 Urine Blood Sm (Negative) 08/14/19 19:40 Urine Nitrite Neg (Negative) 08/14/19 19:40 Urine Bilirubin Neg (Negative) 08/14/19 19:40 Urine Urobilinogen < 2.0 mg/dL (<2.0) 08/14/19 19:40 Ur Leukocyte Esterase Neg (Negative) 08/14/19 19:40 Urine WBC (Auto) 2.0 /HPF (0.0-6.0) 08/14/19 19:40 Urine RBC (Auto) 3.0 /HPF (0.0-6.0) 08/14/19 19:40 U Epithel Cells (Auto) 1.0 /HPF (0-13.0) 08/14/19 19:40 Urine Mucus 2+ /HPF 08/14/19 19:40 Influenza A (Rapid) Negative (Negative) 08/14/19 Unknown Influenza B (Rapid) Negative (Negative) 08/14/19 Unknown Blood Type O POSITIVE 08/15/19 04:13 Antibody Screen Negative 08/15/19 04:13 Microbiology: Microbiology 08/14/19 13:27 Peripheral/Venous Blood Culture - Preliminary NO GROWTH AFTER 48 HOURS 08/14/19 13:27 Peripheral/Venous Blood Culture - Preliminary NO GROWTH AFTER 48 HOURS 08/14/19 16:25 Tracheal Aspirate Sputum Culture - Final [place]/IV: Voiding Method Indwelling Catheter IV Catheter Type [Left Hand] Peripheral IV IV Catheter Type [Right Hand] Peripheral IV Active Medications - Current Medications Current Medications: Generic Name Dose Route Start Last Admin Trade Name Freq PRN Reason Stop Dose Admin Acetaminophen 650 mg 08/14/19 23:52 08/16/19 09:33 Tylenol PO 650 mg Q4H PRN Administration Pain MILD(1-3)/Fever >100.5/GANNON Albuterol 2.5 mg 08/14/19 23:50 Proventil IH Q4HRT PRN Shortness Of Breath Lipase/Protease/Amylase 1 each 08/15/19 08:[address] 10,500 Unit FEEDTUBE PRN PRN For Clogged Feeding Tube Atorvastatin Calcium 40 mg 08/17/19 02:23 Lipitor PO QHS [facility], 1928–1983 Clopidogrel Bisulfate 75 mg 08/16/19 10:00 08/16/19 09:34 Plavix PO 75 mg QDAY FOR[facility]1983 Administration Fentanyl 50 mcg 08/14/19 16:09 08/14/19 22:05 Sublimaze IV 50 mcg Q10MIN PRN Administration ANALGESIA Heparin Sodium (Porcine) 4,000 unit 08/16/19 17:00 Heparin 10,000 Units/10 Ml IV 08/16/19 17:01 ONCE ONE Hydrophilic Ointment 1 applic 08/14/19 16:09 Vaseline Lip Therapy TP Q2HR PRN Dry Lips Hydroxychloroquine Sulfate 200 mg 08/15/19 22:00 08/16/19 09:46 Plaquenil PO 08/19/19 10:01 200 mg Q12H ADÁN Administration Fentanyl Citrate 2,000 mcg in 100 mls @ 5.216 mls/hr 08/14/19 17:00 08/16/19 14:56 Fentanyl Drip Premix IV 3 mcg/kg/hr TITR ADÁN 15.649 mls/hr Administration Protocol 1 MCG/KG/HR Propofol 1,000 mg in 100 mls @ 3.13 mls/hr 08/14/19 17:00 08/16/19 11:50 Diprivan 10 Mg/Ml IV 5 mcg/kg/min TITR ADÁN 3.13 mls/hr Administration Protocol 5 MCG/KG/MIN Ceftriaxone Sodium 2 gm in 100 mls @ 200 mls/hr 08/15/19 10:00 08/16/19 11:25 Rocephin/Ns 2 Gm/100 Ml IV 200 mls/hr Q24HR ADÁN Administration Protocol Sodium Chloride 1,000 mls @ 75 mls/hr 08/14/19 23:45 08/16/19 13:31 Nacl 0.9% 1000 Ml IV 75 mls/hr DIRECT ADÁN Administration Heparin Sodium/Sodium Chloride 25,000 unit in 500 mls @ 20 mls/hr 08/15/19 03:00 08/16/19 16:07 Heparin/ 0.45% Nacl-25,000 Unit/500 Ml IV 1,500 units/hr TITRATE ADÁN 30 mls/hr Titration Protocol 1,000 UNITS/HR Lorazepam 100 mg/ Sodium 100 mls @ 1 mls/hr 08/15/19 13:00 08/15/19 22:02 Chloride/ Miscellaneous IV 3 mg/hr Information TITR ADÁN 3 mls/hr Titration Protocol 1 MG/HR Norepinephrine 4 mg in 250 mls @ 7.5 mls/hr 08/15/19 12:00 08/16/19 15:10 Levophed Drip 4 Mg/Ns 250 Ml IV 4 mcg/min TITR ADÁN 15 mls/hr Titration Protocol 2 MCG/MIN Lorazepam 2 mg 08/15/19 11:36 Ativan IV Q10MIN PRN Agitation Metoprolol Tartrate 25 mg 08/15/19 12:00 08/16/19 13:30 Metoprolol PO 25 mg Q8H [facility]1983 Administration Multi-Ingred Cream/Lotion/Oil/Oint 1 applic 08/14/19 16:09 Artificial Tears Ophth Oint OU Q4HR PRN Dry Eye(s) Nitroglycerin 0.5 inch 08/15/19 14:00 08/16/19 14:05 Nitro-Bid 2% TP 0.5 inch QIDNTG FOR[facility], [facility]–1983 Administration Protocol Ondansetron HCl 4 mg 08/14/19 23:52 Zofran IV Q8H PRN Nausea And Vomiting Pantoprazole Sodium 40 mg 08/15/19 12:00 08/16/19 09:33 Protonix PO 40 mg QDAY ADÁN Administration Simple Syrup 15 ml 08/15/19 08:47 Simple Syrup FEEDTUBE PRN PRN Hypoglycemia Simple Syrup 30 ml 08/15/19 08:47 Simple Syrup FEEDTUBE PRN PRN Hypoglycemia Sodium Bicarbonate 325 mg 08/15/19 08:47 Sodium Bicarbonate FEEDTUBE PRN PRN For Clogged Feeding Tube Sodium Chloride 10 ml 08/15/19 10:00 08/16/19 09:35 Sodium Chloride Flush Syringe 10 Ml IV 10 ml BID ADÁN Administration Sodium Chloride 10 ml 08/14/19 23:52 Sodium Chloride Flush Syringe 10 Ml IV PRN PRN LINE FLUSH Nutrition/Malnutrition Assess - Dietary Evaluation Nutrition/Malnutrition Findings: Nutrition Notes Start: 08/15/19 08:34 Freq: Status: Active Protocol: Document 08/15/19 08:34 LM (Rec: 08/15/19 08:47 LM [id number]) Nutrition Notes Need for Assessment generated from: MD Order Initial or Follow up Assessment Current Diagnosis Sepsis,Hypertension, Respiratory Failure Other Pertinent Diagnosis Suspected COVID-19, Pneu Current Diet No diet Labs/Tests Na 136 BG 142 TG 219 Pertinent Medications NaCl at 75ml/hr Propofol at 3.13ml/hr (83kcal) Height 5 ft 11 in Weight 104.326 kg [place] Body Weight (kg) 78.18 BMI 32.1 Weight Status Obese Subjective/Other Information MD consult for TF. Pt on vent and s/p code blue. Burn Absent Trauma Absent Current % PO Negligible Minimum of two criteria No physical signs of malnutrition #1 Nutrition Diagnosis Inadequate oral intake Etiology Mechanical vent As Evidenced by Signs and Symptoms Pt unable to consume PO Is patient on ventilator? Yes Is Patient Ambulatory and/or Out of Bed No REE-([facility]-confined to bed) 2225.448 Kcal/Kg value to use for calculation 17 Approximate Energy Requirements Using 1774 kcal/Kg Calculation Used for Recommendations Kcal/kg Additional Notes Protein: 156g (>/=2g/kg using IBW 78kg) Fluid: 1ml/kcal Nutrition Intervention Change Diet Order: TF Nutrition Support: Vital AF 1.2 at 60ml/hr Flush 100ml q4h Kcal 1,728 Protein (gm) 108 Fluid (mL) 1,168 Goal #1 TF start/tolerance Anticipated Discharge Needs: unable to determine at this time Follow-Up By: 08/17/19 Additional Comments F/U for TF start/tolerance
[2019-08-16 16:34] LABS: ABG Base Excess -8.8 mmol/L (-2.0-3.0); ABG HCO3 18.4 mmol/L (20.0-26.0); ABG Methemoglobin 0.6 % (0.0-1.5); ABG PCO2 45.1 mm Hg; ABG PH 7.229 pH Units (7.350-7.450)
[2019-08-16] MEDS ORDERED: HEPARIN 10,000 UNITS/10 ML VIAL IV ONE (17:00)
[2019-08-16] MEDS: LORazepam 100 MG in SODIUM CHLORIDE 0.9% 50 ML, EMPTY BAG 0 ML IV SCH (17:04)
[2019-08-17] MEDS: NORepinephrine/NS 4 MG-250 ML 4 MG/250 ML BAG IV SCH ×3 (00:54→15:00)
[2019-08-17] MEDS: fentaNYL DRIP Premix 2,000 MCG/100 ML BAG IV SCH (02:25)
[2019-08-17] MEDS: METOPROLOL TARTRATE 25 MG TAB PO SCH ×2 (04:01→12:33)
--- NOTE | 2019-08-17 04:17 | XRay Report ---
CHEST 1 VIEW 08/17/2019 2:09 AM INDICATION / CLINICAL INFORMATION: follow up respiratory failure. COMPARISON: 08/16/19 FINDINGS: SUPPORT DEVICES: Unchanged. HEART / MEDIASTINUM: Stable. LUNGS / PLEURA: Bilateral pulmonary opacities are unchanged. Right apical pulmonary bleb is unchanged . No pneumothorax. ADDITIONAL FINDINGS: No significant additional findings. IMPRESSION: 1. No significant change. Signer Name: Samson Sheppard MD Signed: 08/17/2019 4:13 AM Workstation Name: [id number]
[2019-08-17 05:29] LABS: ABG Base Excess -11.9 mmol/L (-2.0-3.0); ABG HCO3 17.3 mmol/L (20.0-26.0); ABG PCO2 51.5 mm Hg; ABG PO2 66.9 mm Hg (80.0-90.0)
[2019-08-17 05:31] LABS: ABG Methemoglobin 0.5 % (0.0-1.5); ABG Oxygen Saturation 90.4 % (95.0-99.0)
[2019-08-17] MEDS: NITROGLYCERIN 2% OINT 1 GM TP SCH ×2 (05:47→09:30)
[2019-08-17 05:50] LABS: ABG PH 7.141 pH Units (7.350-7.450)
[2019-08-17] MEDS: HEPARIN/ 0.45% NACL DRIP 25,000 UNIT/500 ML BAG IV SCH (06:36)
[2019-08-17 08:34] LABS: ABG Base Excess -11.5 mmol/L (-2.0-3.0); ABG HCO3 16.9 mmol/L (20.0-26.0); ABG Methemoglobin 0.6 % (0.0-1.5); ABG Oxygen Saturation 95.1 % (95.0-99.0); ABG PCO2 48.4 mm Hg; ABG PO2 86.7 mm Hg (80.0-90.0)
[2019-08-17 08:45] LABS: ABG PH 7.16 pH Units (7.350-7.450)
[2019-08-17 09:16] LABS: Hematocrit 36.7 % (35.5-45.6); Hemoglobin 11.5 gm/dl (11.8-15.2); Mean Corpuscular HGB Conc 31 % (32-34); Mean Corpuscular Volume 86 fl (84-94); Platelet Count 149 K/mm3 (140-440); Red Blood Count 4.26 M/mm3 (3.65-5.03); Red Cell Distribution Width 18.6 % (13.2-15.2)
[2019-08-17] MEDS: HYDROXYCHLOROQUINE 200 MG TAB PO SCH (09:29)
[2019-08-17] MEDS: cefTRIAXone/NS 2 GM/100 ML 2 GM/100 ML BAG IV SCH (09:31)
[2019-08-17] MEDS: CLOPIDOGREL 75 MG TAB PO SCH (09:32)
[2019-08-17 09:57] LABS: Blood Urea Nitrogen TNR mg/dL (9-20)
[2019-08-17 09:58] LABS: BUN/Creatinine Ratio TNR
[2019-08-17 09:59] LABS: C-Reactive Protein TNR mg/dL (0.00-1.30); Calcium TNR mg/dL (8.4-10.2); Hemolysis Index TNR
[2019-08-17] MEDS ORDERED: LANSOPRAZOLE 30 MG SOLUTAB FEEDTUBE SCH (10:00)
[2019-08-17] MEDS ORDERED: SODIUM BICARB 8.4% 50 MEQ/50 ML SYRINGE IV ONE ×5 (12:03→15:50)
--- NOTE | 2019-08-17 12:21 | Progress Note ---
Assessment and Plan 64 y/o male with acute respiratory failure, concern for COVID 19 causing pneumonia, then with cardiac arrest x2 from acute PA status post TPA therapy last night, sedated on the vent. 1. Picc being placed today. 2. CV-STEMI status post TPA on 08/14. EKG resolved. Unable to get echo but BNP was 8k. Would like to give another 40 of lasix today but awaiting the repeat chemistry from this am. 3. Resp-will do a trial of APRV with permissive hypercapnea. as long as pH is greater than 7.20 we are ok. Repeat ABG later today. RT to attempt art line at bedside. was less than 7.2 this am so will give 2 amps of Na Bicarb 4. Repeat labs tomorrow. 5. Overal prognosis is guarded Spoke with and a friend of the family who is a former renal/oncology nurse that is now doing case management work. CCT 31 minutes. Subjective Date of service: 08/17/19 Principal diagnosis: Bilateral pneumonia,STEMI Interval history: Tolerating APRV but still on 100%. To me CXR seems to be a bit improved. PUI?: Yes COVID19: Positive Objective Vital Signs - 12hr 08/17/19 08/17/19 08/17/19 00:15 00:30 00:45 Temperature Pulse Rate 94 H 94 H 94 H Pulse Rate [ From Monitor] Respiratory 12 12 12 Rate Blood Pressure 106/64 112/64 108/66 O2 Sat by Pulse 100 99 99 Oximetry 08/17/19 08/17/19 08/17/19 01:00 01:15 01:30 Temperature Pulse Rate 95 H 95 H 95 H Pulse Rate [ From Monitor] Respiratory 12 12 13 Rate Blood Pressure 93/67 95/65 98/68 O2 Sat by Pulse 99 100 100 Oximetry 08/17/19 08/17/19 08/17/19 01:45 02:00 02:15 Temperature Pulse Rate 94 H 95 H 98 H Pulse Rate [ From Monitor] Respiratory 12 13 12 Rate Blood Pressure 107/63 114/69 108/71 O2 Sat by Pulse 99 99 99 Oximetry 08/17/19 08/17/19 08/17/19 02:30 02:45 03:01 Temperature Pulse Rate 94 H 95 H 95 H Pulse Rate [ From Monitor] Respiratory 12 13 12 Rate Blood Pressure 111/65 117/66 111/63 O2 Sat by Pulse 99 100 98 Oximetry 08/17/19 08/17/19 08/17/19 03:15 03:30 03:38 Temperature 98.8 F Pulse Rate 94 H 94 H Pulse Rate [ From Monitor] Respiratory 12 12 Rate Blood Pressure 113/65 109/64 O2 Sat by Pulse 98 97 Oximetry 08/17/19 08/17/19 08/17/19 03:45 04:00 04:01 Temperature Pulse Rate 92 H 93 H 94 H Pulse Rate [ 94 H From Monitor] Respiratory 13 13 Rate Blood Pressure 111/62 120/67 102/59 O2 Sat by Pulse 98 99 Oximetry 08/17/19 08/17/19 08/17/19 04:15 04:19 04:31 Temperature Pulse Rate 67 92 H 78 Pulse Rate [ From Monitor] Respiratory 12 13 Rate Blood Pressure 120/67 86/55 97/58 O2 Sat by Pulse 96 98 95 Oximetry 08/17/19 08/17/19 08/17/19 04:45 05:00 05:15 Temperature Pulse Rate 77 86 69 Pulse Rate [ From Monitor] Respiratory 13 12 13 Rate Blood Pressure 100/56 95/63 105/68 O2 Sat by Pulse 93 94 95 Oximetry 08/17/19 08/17/19 08/17/19 05:31 05:45 05:47 Temperature Pulse Rate 77 81 82 Pulse Rate [ From Monitor] Respiratory 13 13 Rate Blood Pressure 105/68 111/65 111/65 O2 Sat by Pulse 95 99 Oximetry 08/17/19 08/17/19 08/17/19 06:00 06:15 06:31 Temperature Pulse Rate 88 92 H 90 Pulse Rate [ From Monitor] Respiratory 13 13 14 Rate Blood Pressure 113/64 106/64 112/64 O2 Sat by Pulse 98 99 100 Oximetry 08/17/19 08/17/19 08/17/19 06:45 07:00 07:15 Temperature Pulse Rate 89 92 H 95 H Pulse Rate [ From Monitor] Respiratory 18 13 14 Rate Blood Pressure 114/70 113/62 109/68 O2 Sat by Pulse 100 100 100 Oximetry 08/17/19 08/17/19 08/17/19 07:31 07:45 08:00 Temperature 98.7 F Pulse Rate 87 93 H 95 H Pulse Rate [ 90 From Monitor] Respiratory 15 15 15 Rate Blood Pressure 129/38 129/38 122/63 O2 Sat by Pulse 100 100 100 Oximetry 08/17/19 08/17/19 08/17/19 08:15 08:30 08:45 Temperature Pulse Rate 95 H 95 H 90 Pulse Rate [ From Monitor] Respiratory 14 14 15 Rate Blood Pressure 109/68 116/66 116/66 O2 Sat by Pulse 100 100 100 Oximetry 08/17/19 08/17/19 08/17/19 09:01 09:15 09:30 Temperature Pulse Rate 86 85 85 Pulse Rate [ From Monitor] Respiratory 14 16 Rate Blood Pressure 114/58 118/65 109/64 O2 Sat by Pulse 100 98 Oximetry 08/17/19 08/17/19 08/17/19 09:31 09:45 10:01 Temperature Pulse Rate 84 85 83 Pulse Rate [ From Monitor] Respiratory 20 15 18 Rate Blood Pressure 109/64 119/66 116/64 O2 Sat by Pulse 99 99 99 Oximetry 08/17/19 08/17/19 08/17/19 10:15 10:31 11:57 Temperature Pulse Rate 83 84 84 Pulse Rate [ From Monitor] Respiratory 15 15 Rate Blood Pressure 117/66 117/66 117/66 O2 Sat by Pulse 98 98 98 Oximetry 08/17/19 12:00 Temperature 99.1 F Pulse Rate Pulse Rate [ From Monitor] Respiratory Rate Blood Pressure O2 Sat by Pulse Oximetry Constitutional: comatose (secondary to medications we are giving) Eyes: non-icteric ENT: other (orally intubated and sedated) Neck: supple Effort: normal Ascultation: Bilateral: rales Percussion: Bilateral: not dull Cardiovascular: other (sinus tach) Gastrointestinal: normoactive bowel sounds, soft Extremities: no edema Neurologic: unable to assess CBC and BMP: 08/17/19 08:56 08/17/19 08:56 ABG, PT/INR, D-dimer: ABG ABG pH 7.141 pH Units (7.350-7.450) L* 08/17/19 Unknown ABG pCO2 51.5 mm Hg 08/17/19 Unknown ABG pO2 66.9 mm Hg (80.0-90.0) L 08/17/19 Unknown ABG O2 Saturation 90.4 % (95.0-99.0) L 08/17/19 Unknown PT/INR, D-dimer PT 34.0 Sec. (12.2-14.9) H 08/15/19 02:25 INR 3.26 (0.87-1.13) H 08/15/19 02:25 D-Dimer > 40362 ng/mlDDU (0-234) H 08/17/19 08:56 Abnormal lab findings: Abnormal Labs 08/14/19 08/14/19 08/14/19 13:27 13:27 13:27 WBC 12.2 H RBC 5.47 H Hgb Hct 46.1 H MCH 27 L MCHC RDW 17.6 H Lymph % (Auto) Lymph # Seg Neutrophils % Seg Neuts % (Manual) 93.0 H Lymphocytes % (Manual) 3.0 L Seg Neutrophils # Seg Neutrophils # Man 11.3 H Lymphocytes # (Manual) 0.4 L Monocytes # (Manual) PT INR APTT D-Dimer Heparin Anti-Xa Level ABG pH ABG pO2 ABG HCO3 ABG O2 Saturation ABG Base Excess ABG Hemoglobin Oxyhemoglobin Sodium 134 L Potassium 3.5 L Chloride 94.7 L Carbon Dioxide 17 L BUN 22 H Glucose 104 H POC Glucose Lactic Acid 2.60 H* Calcium Ferritin AST 43 H Lactate Dehydrogenase Total Creatine Kinase CK-MB (CK-2) CK-MB (CK-2) Rel Index Troponin T C-Reactive Protein NT-Pro-B Natriuret Pep Total Protein 9.0 H Albumin 3.7 L Triglycerides 08/14/19 08/14/19 08/14/19 13:27 13:27 13:27 WBC RBC Hgb Hct MCH MCHC RDW Lymph % (Auto) Lymph # Seg Neutrophils % Seg Neuts % (Manual) Lymphocytes % (Manual) Seg Neutrophils # Seg Neutrophils # Man Lymphocytes # (Manual) Monocytes # (Manual) PT INR APTT D-Dimer 6296.21 H Heparin Anti-Xa Level ABG pH ABG pO2 ABG HCO3 ABG O2 Saturation ABG Base Excess ABG Hemoglobin Oxyhemoglobin Sodium Potassium Chloride Carbon Dioxide BUN Glucose POC Glucose Lactic Acid Calcium Ferritin 1633.0 H AST Lactate Dehydrogenase 651 H Total Creatine Kinase CK-MB (CK-2) CK-MB (CK-2) Rel Index Troponin T C-Reactive Protein 22.20 H NT-Pro-B Natriuret Pep Total Protein Albumin Triglycerides 08/14/19 08/15/19 08/15/19 16:25 02:25 02:25 WBC RBC Hgb Hct MCH MCHC RDW Lymph % (Auto) Lymph # Seg Neutrophils % Seg Neuts % (Manual) Lymphocytes % (Manual) Seg Neutrophils # Seg Neutrophils # Man Lymphocytes # (Manual) Monocytes # (Manual) PT INR APTT D-Dimer 835.18 H Heparin Anti-Xa Level ABG pH 7.303 L ABG pO2 223.6 H ABG HCO3 ABG O2 Saturation 99.3 H ABG Base Excess -5.5 L ABG Hemoglobin Oxyhemoglobin Sodium Potassium Chloride Carbon Dioxide BUN Glucose POC Glucose Lactic Acid Calcium Ferritin 1885.0 H AST Lactate Dehydrogenase Total Creatine Kinase CK-MB (CK-2) CK-MB (CK-2) Rel Index Troponin T C-Reactive Protein NT-Pro-B Natriuret Pep Total Protein Albumin Triglycerides 08/15/19 08/15/19 08/15/19 02:25 02:25 02:25 WBC 13.7 H RBC Hgb Hct MCH 27 L MCHC RDW 17.6 H Lymph % (Auto) Lymph # Seg Neutrophils % Seg Neuts % (Manual) 83.0 H Lymphocytes % (Manual) 10.0 L Seg Neutrophils # Seg Neutrophils # Man 11.4 H Lymphocytes # (Manual) Monocytes # (Manual) 1.0 H PT INR APTT D-Dimer Heparin Anti-Xa Level ABG pH ABG pO2 ABG HCO3 ABG O2 Saturation ABG Base Excess ABG Hemoglobin Oxyhemoglobin Sodium Potassium Chloride Carbon Dioxide BUN Glucose POC Glucose Lactic Acid Calcium Ferritin AST Lactate Dehydrogenase 732 H Total Creatine Kinase 644 H CK-MB (CK-2) 69.8 H CK-MB (CK-2) Rel Index 10.8 H Troponin T 0.352 H* C-Reactive Protein 24.30 H NT-Pro-B Natriuret Pep Total Protein Albumin Triglycerides 219 H 08/15/19 08/15/19 08/15/19 02:25 02:25 02:26 WBC RBC Hgb Hct MCH MCHC RDW Lymph % (Auto) Lymph # Seg Neutrophils % Seg Neuts % (Manual) Lymphocytes % (Manual) Seg Neutrophils # Seg Neutrophils # Man Lymphocytes # (Manual) Monocytes # (Manual) PT 34.0 H INR 3.26 H APTT 61.5 H* D-Dimer Heparin Anti-Xa Level ABG pH ABG pO2 57.8 L ABG HCO3 ABG O2 Saturation 89.4 L ABG Base Excess -4.5 L ABG Hemoglobin 13.6 L Oxyhemoglobin 88.1 L Sodium 135 L Potassium Chloride Carbon Dioxide 19 L BUN 26 H Glucose 113 H POC Glucose Lactic Acid Calcium Ferritin AST Lactate Dehydrogenase Total Creatine Kinase CK-MB (CK-2) CK-MB (CK-2) Rel Index Troponin T C-Reactive Protein NT-Pro-B Natriuret Pep Total Protein Albumin Triglycerides 08/15/19 08/15/19 08/15/19 04:12 04:12 12:07 WBC 12.8 H RBC Hgb Hct MCH 27 L MCHC 31 L RDW 17.5 H Lymph % (Auto) 8.5 L Lymph # 1.1 L Seg Neutrophils % 86.9 H Seg Neuts % (Manual) Lymphocytes % (Manual) Seg Neutrophils # 11.1 H Seg Neutrophils # Man Lymphocytes # (Manual) Monocytes # (Manual) PT INR APTT D-Dimer Heparin Anti-Xa Level ABG pH ABG pO2 ABG HCO3 ABG O2 Saturation ABG Base Excess ABG Hemoglobin Oxyhemoglobin Sodium 136 L Potassium Chloride Carbon Dioxide 18 L BUN 26 H Glucose 142 H POC Glucose 121 H Lactic Acid Calcium 8.1 L Ferritin AST Lactate Dehydrogenase Total Creatine Kinase 613 H CK-MB (CK-2) 66.1 H CK-MB (CK-2) Rel Index 10.7 H Troponin T 0.586 H* D C-Reactive Protein NT-Pro-B Natriuret Pep Total Protein Albumin Triglycerides 08/15/19 08/15/19 08/15/19 12:14 12:14 12:14 WBC RBC Hgb Hct MCH MCHC RDW Lymph % (Auto) Lymph # Seg Neutrophils % Seg Neuts % (Manual) Lymphocytes % (Manual) Seg Neutrophils # Seg Neutrophils # Man Lymphocytes # (Manual) Monocytes # (Manual) PT INR APTT D-Dimer Heparin Anti-Xa Level 0.10 L ABG pH ABG pO2 ABG HCO3 ABG O2 Saturation ABG Base Excess ABG Hemoglobin Oxyhemoglobin Sodium Potassium Chloride Carbon Dioxide BUN Glucose POC Glucose Lactic Acid Calcium Ferritin AST Lactate Dehydrogenase Total Creatine Kinase 2255 H CK-MB (CK-2) > 300.0 H CK-MB (CK-2) Rel Index 13.3 H Troponin T 6.990 H* D C-Reactive Protein NT-Pro-B Natriuret Pep 8074 H Total Protein Albumin Triglycerides 08/15/19 08/16/19 08/16/19 23:03 07:10 12:39 WBC RBC Hgb Hct MCH MCHC RDW Lymph % (Auto) Lymph # Seg Neutrophils % Seg Neuts % (Manual) Lymphocytes % (Manual) Seg Neutrophils # Seg Neutrophils # Man Lymphocytes # (Manual) Monocytes # (Manual) PT INR APTT D-Dimer Heparin Anti-Xa Level 0.12 L 0.11 L ABG pH ABG pO2 ABG HCO3 ABG O2 Saturation ABG Base Excess ABG Hemoglobin Oxyhemoglobin Sodium Potassium Chloride Carbon Dioxide BUN Glucose POC Glucose 109 H Lactic Acid Calcium Ferritin AST Lactate Dehydrogenase Total Creatine Kinase CK-MB (CK-2) CK-MB (CK-2) Rel Index Troponin T C-Reactive Protein NT-Pro-B Natriuret Pep Total Protein Albumin Triglycerides 08/16/19 08/16/19 08/16/19 13:40 14:38 16:27 WBC RBC Hgb Hct MCH MCHC RDW Lymph % (Auto) Lymph # Seg Neutrophils % Seg Neuts % (Manual) Lymphocytes % (Manual) Seg Neutrophils # Seg Neutrophils # Man Lymphocytes # (Manual) Monocytes # (Manual) PT INR APTT D-Dimer Heparin Anti-Xa Level < 0.10 L ABG pH 7.200 L 7.229 L ABG pO2 77.8 L 58.0 L ABG HCO3 19.6 L 18.4 L ABG O2 Saturation 92.6 L 87.0 L ABG Base Excess -8.4 L -8.8 L ABG Hemoglobin 11.6 L 11.4 L Oxyhemoglobin 91.0 L 85.5 L Sodium Potassium Chloride Carbon Dioxide BUN Glucose POC Glucose Lactic Acid Calcium Ferritin AST Lactate Dehydrogenase Total Creatine Kinase CK-MB (CK-2) CK-MB (CK-2) Rel Index Troponin T C-Reactive Protein NT-Pro-B Natriuret Pep Total Protein Albumin Triglycerides 08/16/19 08/17/19 08/17/19 18:07 07:30 08:56 WBC 19.2 H RBC Hgb 11.5 L Hct MCH 27 L MCHC 31 L RDW 18.6 H Lymph % (Auto) Lymph # Seg Neutrophils % Seg Neuts % (Manual) Lymphocytes % (Manual) Seg Neutrophils # Seg Neutrophils # Man Lymphocytes # (Manual) Monocytes # (Manual) PT INR APTT D-Dimer Heparin Anti-Xa Level ABG pH 7.160 L* ABG pO2 ABG HCO3 16.9 L ABG O2 Saturation ABG Base Excess -11.5 L ABG Hemoglobin 11.6 L Oxyhemoglobin 93.5 L Sodium Potassium Chloride Carbon Dioxide BUN Glucose POC Glucose 123 H Lactic Acid Calcium Ferritin AST Lactate Dehydrogenase Total Creatine Kinase CK-MB (CK-2) CK-MB (CK-2) Rel Index Troponin T C-Reactive Protein NT-Pro-B Natriuret Pep Total Protein Albumin Triglycerides 08/17/19 08/17/19 08/17/19 08:56 08:56 11:41 WBC RBC Hgb Hct MCH MCHC RDW Lymph % (Auto) Lymph # Seg Neutrophils % Seg Neuts % (Manual) Lymphocytes % (Manual) Seg Neutrophils # Seg Neutrophils # Man Lymphocytes # (Manual) Monocytes # (Manual) PT INR APTT D-Dimer > 68005 H Heparin Anti-Xa Level ABG pH ABG pO2 ABG HCO3 ABG O2 Saturation ABG Base Excess ABG Hemoglobin Oxyhemoglobin Sodium Potassium Chloride Carbon Dioxide BUN Glucose POC Glucose 176 H Lactic Acid Calcium Ferritin > 2000.0 H AST Lactate Dehydrogenase Total Creatine Kinase CK-MB (CK-2) CK-MB (CK-2) Rel Index Troponin T C-Reactive Protein NT-Pro-B Natriuret Pep Total Protein Albumin Triglycerides 08/17/19 Unknown WBC RBC Hgb Hct MCH MCHC RDW Lymph % (Auto) Lymph # Seg Neutrophils % Seg Neuts % (Manual) Lymphocytes % (Manual) Seg Neutrophils # Seg Neutrophils # Man Lymphocytes # (Manual) Monocytes # (Manual) PT INR APTT D-Dimer Heparin Anti-Xa Level ABG pH 7.141 L* ABG pO2 66.9 L ABG HCO3 17.3 L ABG O2 Saturation 90.4 L ABG Base Excess -11.9 L ABG Hemoglobin 11.1 L Oxyhemoglobin 89.0 L Sodium Potassium Chloride Carbon Dioxide BUN Glucose POC Glucose Lactic Acid Calcium Ferritin AST Lactate Dehydrogenase Total Creatine Kinase CK-MB (CK-2) CK-MB (CK-2) Rel Index Troponin T C-Reactive Protein NT-Pro-B Natriuret Pep Total Protein Albumin Triglycerides
--- NOTE | 2019-08-17 12:58 | Progress Note ---
Assessment and Plan Cultures: 08/14/2019 Blood culture: no growth 08/14/2019 sputum culture: contaminated with saliva A/P: 64 yo M PMHx hypertension, rheumatoid arthritis admitted with concern for COVID- 19, with subsequent STEMI: #COVID-19: per lab, COVID-19 positive. Continue isolation precautions. Complete hydroxychloroquine as empiric therapy. Inflammatory markers elevated, though difficult to interpret in cardiac arrest scenario. #Acute respiratory failure, bilateral pneumonia: continue ceftriaxone. #STEMI: s/p alteplase Recs: - Reasonable to complete 5 total days of Plaquenil - Continue empiric IV Ceftriaxone x total 5 days - Continue supportive care Arjun Quinonez MD, FACP [facility] ([facility] C: [phone] O: [phone] F: [phone] Subjective Date of service: 08/17/19 Principal diagnosis: Bilateral pneumonia,STEMI Interval history: Low grade fever. Remains intubated, sedated. On pressors. PUI?: Yes COVID19: Positive Objective - Exam Narrative Exam: Physical Exam (reviewed in chart due to PPE conservation) Constitutional: intubated, sedated, on the vent Head, Ears, Nose: normocephalic, atraumatic Eyes: limited due to PPE conservation strategy Neck: intubated Oral: intubated Cardiovascular: limited due to PPE conservation strategy Respiratory: limited due to PPE conservation strategy GI: limited due to PPE conservation strategy Musculoskeletal: limited due to PPE conservation strategy Skin: limited due to PPE conservation strategy Hem/Lymphatic: limited due to PPE conservation strategy Psych: no agitation Neurological: sedated, intubated, on the vent, exam limited - Constitutional Vitals: Vital Signs Temp Pulse Resp BP Pulse Ox 99.1 F 87 15 121/74 98 08/17/19 12:00 08/17/19 12:33 08/17/19 10:31 08/17/19 12:33 08/17/19 11:57 Temperature -Last 24 Hours Temperature 99.1 F Temperature 98.7 F Temperature 98.8 F Temperature 99.1 F Temperature 100.3 F Temperature 100.9 F - Labs CBC & Chem 7: 08/17/19 08:56 08/17/19 08:56 Labs: Abnormal lab results 08/16/19 08/16/1920 Range/Units 13:40 14:38 16:27 WBC (4.5-11.0) K/mm3 Hgb (11.8-15.2) gm/dl MCH (28-32) pg MCHC (32-34) % RDW (13.2-15.2) % D-Dimer (0-234) ng/mlDDU Heparin Anti-Xa Level < 0.10 L (0.3-0.7) U.I./ml ABG pH 7.200 L 7.229 L (7.350-7.450) pH Units ABG pO2 77.8 L 58.0 L (80.0-90.0) mm Hg ABG HCO3 19.6 L 18.4 L (20.0-26.0) mmol/L ABG O2 Saturation 92.6 L 87.0 L (95.0-99.0) % ABG Base Excess -8.4 L -8.8 L (-2.0-3.0) mmol/L ABG Hemoglobin 11.6 L 11.4 L (14.0-18.0) gm/dl Oxyhemoglobin 91.0 L 85.5 L (95.0-99.0) % POC Glucose (70-105) Ferritin (13.0-400.0) ng/mL 08/16/19 08/17/19 08/17/19 Range/Units 18:07 07:30 08:56 WBC 19.2 H (4.5-11.0) K/mm3 Hgb 11.5 L (11.8-15.2) gm/dl MCH 27 L (28-32) pg MCHC 31 L (32-34) % RDW 18.6 H (13.2-15.2) % D-Dimer (0-234) ng/mlDDU Heparin Anti-Xa Level (0.3-0.7) U.I./ml ABG pH 7.160 L* (7.350-7.450) pH Units ABG pO2 (80.0-90.0) mm Hg ABG HCO3 16.9 L (20.0-26.0) mmol/L ABG O2 Saturation (95.0-99.0) % ABG Base Excess -11.5 L (-2.0-3.0) mmol/L ABG Hemoglobin 11.6 L (14.0-18.0) gm/dl Oxyhemoglobin 93.5 L (95.0-99.0) % POC Glucose 123 H (70-105) Ferritin (13.0-400.0) ng/mL 08/17/19 08/17/19 08/17/19 Range/Units 08:56 08:56 11:41 WBC (4.5-11.0) K/mm3 Hgb (11.8-15.2) gm/dl MCH (28-32) pg MCHC (32-34) % RDW (13.2-15.2) % D-Dimer > 38003 H (0-234) ng/mlDDU Heparin Anti-Xa Level (0.3-0.7) U.I./ml ABG pH (7.350-7.450) pH Units ABG pO2 (80.0-90.0) mm Hg ABG HCO3 (20.0-26.0) mmol/L ABG O2 Saturation (95.0-99.0) % ABG Base Excess (-2.0-3.0) mmol/L ABG Hemoglobin (14.0-18.0) gm/dl Oxyhemoglobin (95.0-99.0) % POC Glucose 176 H (70-105) Ferritin > 2000.0 H (13.0-400.0) ng/mL 08/17/19 Range/Units Unknown WBC (4.5-11.0) K/mm3 Hgb (11.8-15.2) gm/dl MCH (28-32) pg MCHC (32-34) % RDW (13.2-15.2) % D-Dimer (0-234) ng/mlDDU Heparin Anti-Xa Level (0.3-0.7) U.I./ml ABG pH 7.141 L* (7.350-7.450) pH Units ABG pO2 66.9 L (80.0-90.0) mm Hg ABG HCO3 17.3 L (20.0-26.0) mmol/L ABG O2 Saturation 90.4 L (95.0-99.0) % ABG Base Excess -11.9 L (-2.0-3.0) mmol/L ABG Hemoglobin 11.1 L (14.0-18.0) gm/dl Oxyhemoglobin 89.0 L (95.0-99.0) % POC Glucose (70-105) Ferritin (13.0-400.0) ng/mL
--- NOTE | 2019-08-17 13:27 | Event Note ---
Date: 08/17/19 Patient had desats and hypotension after BB therapy given. HR in the 60' MAP 70 but nurse had to max out levophed and now 30. Will add vasopressin. Given 2 amps of sodium bicarb and will repeat abg in 2 hours. Stopped BB therapy for now. Ordered EKG. Per nurse ST elevation seen on monitor was there yesterday. Old EKG shows what appears to be an inferior ID but await cardiology evaluation for today and recs if needed.
[2019-08-17] MEDS ORDERED: SODIUM BICARBONATE 150 MEQ in DEXTROSE 5% IN WATER 1,000 ML IV SCH (14:00)
[2019-08-17] MEDS ORDERED: VASOPRESSIN 20 UNIT in SODIUM CHLORIDE 0.9% 100 ML IV SCH (14:00)
--- NOTE | 2019-08-17 14:34 | XRay Report ---
CHEST 1 VIEW 1:43 PM INDICATION / CLINICAL INFORMATION: Chest pain. COMPARISON: Earlier today at 2:09 AM. FINDINGS: SUPPORT DEVICES: The tip of the endotracheal tube is 8 cm above the joanne. There is a nasogastric tu be coursing into the stomach with the tip not seen. HEART / MEDIASTINUM: Unchanged. LUNGS / PLEURA: Moderate diffuse bilateral parenchymal disease is again identified. Lung volumes appe ar mildly improved. Bullous disease in the right apex is stable. No new abnormality is seen. No pneum othorax. ADDITIONAL FINDINGS: No significant additional findings. IMPRESSION: Interval improvement in lung volumes. Moderate diffuse bilateral parenchymal disease may be slightly improved. Signer Name: Viktor Rodriguez MD Signed: 08/17/2019 2:30 PM Workstation Name: [id number]
[2019-08-17 14:57] LABS: Calcium 7.7 mg/dL (8.4-10.2)
[2019-08-17 15:27] LABS: C-Reactive Protein 42.8 mg/dL (0.00-1.30)
[2019-08-17] MEDS ORDERED: EPINEPHrine 1:10,000 1 MG/10 ML SYRINGE ONE (15:50)
[2019-08-17 16:23] LABS: ABG Base Excess -10.5 mmol/L (-2.0-3.0); ABG HCO3 19.6 mmol/L (20.0-26.0); ABG Methemoglobin 0.6 % (0.0-1.5); ABG Oxygen Saturation 83.9 % (95.0-99.0); ABG PCO2 65.6 mm Hg; ABG PO2 57.7 mm Hg (80.0-90.0)
[2019-08-17 16:29] LABS: ABG PH 7.094 pH Units (7.350-7.450)
--- NOTE | 2019-08-17 16:57 | XRay Report ---
CHEST 1 VIEW 4:26 PM INDICATION / CLINICAL INFORMATION: L arm PICC placement. COMPARISON: 1:43 PM. FINDINGS: SUPPORT DEVICES: There is a new PICC entering from left arm with the tip slightly curled distally, pr obably in the azygos vein near its junction with the SVC. HEART / MEDIASTINUM: Unchanged. LUNGS / PLEURA: Diffuse bilateral parenchymal disease, right greater than left, is probably unchanged . No pneumothorax. ADDITIONAL FINDINGS: No significant additional findings. IMPRESSION: The tip of the left PICC is probably in the azygos vein near its junction with the SVC. N o pneumothorax. Signer Name: Viktor Rodriguez MD Signed: 08/17/2019 4:53 PM Workstation Name: [id number]
--- NOTE | 2019-08-17 16:57 | Progress Note ---
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 Patient was not wearing a mask. Per patient's primary care physician he was cautioned about social distancing, wearing mask, the office being closed so that there is no exposure to coronavirus. In spite of many people telling him not to go to work-patient has been going to work. Developed fever and diarrhea for last 5 days but did not seek any medical attention. His called the primary care doctor the morning about the fever and diarrhea and the patient was asked to come to the emergency room for evaluation. In the emergency room patient had low oxygen saturations in the high fever and oxygenation levels were not improving with high flow oxygen and was intubated for respiratory support. states that there were 2 patients with coronavirus at work. Overnite patient had ST elevation IA .Was given TPA and IV Heparin. Not cathed b/c of resp failure and being unstable. Cardiology evaluated the patient and considering respiratory failure, septic shock TPA was chosen as method of treatment for this patient. * Despite current treatment patient remains more acidotic. Bicarb given and started on bicarb drip today. Nephrology consulted as renal function worsening. Repeat creatinine is 6 from 1.4. Will obtain renal ultrasounds. Blood pressures may preclude dialysis but will await nephrology input. Advised family of patient's critical nature. EKG changes communicated with hazardous materials waste technician and they continue to follow. All beta-blockers and blood pressure medications on hold currently on Levophed and vasopressin. - Patient Problems (1) STEMI (ST elevation myocardial infarction) Current Visit: Yes Status: Acute Plan to address problem: S/p TPA and iV Heparin drip Cardiology consult appreciated (2) Acute respiratory failure with hypoxia Current Visit: Yes Status: Acute Qualifiers: Respiratory failure complication: hypoxia Qualified Code(s): J96.01 - Acute respiratory failure with hypoxia Plan to address problem: Patient intubated Vent management Executive Administrator consulted, per input attempted to remove fluids with Lasix as patient has been weaned off Levophed successfully. Patient sedated (3) Bilateral pneumonia Current Visit: Yes Status: Acute Plan to address problem: Patient initiated on IV ceftriaxone and chloroquine Covid result pending Inflammatory markers worsening, though difficult to interpret in code blue scenario (4) Sepsis with shock syndrome secondary to COVID 19 induced viral pneumonia Current Visit: Yes Status: Acute Plan to address problem: IV antibiotics and chloroquine ID consult Continue on Pressors (5) COVID 19 induced pneumonia Current Visit: Yes Status: Acute Plan to address problem: ID following. Continue monitoring markers. (6) SUZY secondary to vasomotor Nephropathy with severe metabolic Acidosis -Nephrology onsult -Started on Bicarb drip -Renal Ultrasound (7) Volume depletion, gastrointestinal loss Current Visit: Yes Status: Acute Plan to address problem: Conservative fluid strategy was applied initially in the beginning. (8) Rheumatoid arthritis Current Visit: Yes Status: Chronic Qualifiers: Rheumatoid arthritis location: knee Rheumatoid factor presence: with rheumatoid factor Laterality: bilateral Qualified Code(s): M05.761 - Rh eumatoid arthritis with rheumatoid factor of right knee without organ or systems involvement; M05.762 - Rheumatoid arthritis with rheumatoid factor of left knee without organ or systems involvement Plan to address problem: Patient is on methotrexate and prednisone We will discuss with ID and restart them (9)DVT prophylaxis Current Visit: Yes Status: Acute Plan to address problem: SCDs and GI prophylaxis Critical care time 35 minutes History Interval history: Patient seen and examined examination limited due to PPE. Patient remains on full ventilatory support. And critically ill. More acidotic. PUI?: Yes COVID19: Positive Hospitalist Physical - Physical exam Narrative exam: Physical exam per woodworking machine feeder review due to limited PPE Constitutional: comatose Eyes: non-icteric ENT: other (orally intubated and sedated) Neck: supple Effort: normal Ascultation: Bilateral: rales Percussion: Bilateral: not dull Cardiovascular: other (sinus tach) Gastrointestinal: normoactive bowel sounds, soft Extremities: no edema Neurologic: unable to assess - Constitutional Vitals: Temp Pulse Resp BP Pulse Ox 99.1 F 79 24 122/74 89 08/17/19 12:00 08/17/19 14:45 08/17/19 14:45 08/17/19 14:45 08/17/19 14:45 General appearance: Present: mild distress, well-nourished Results - Labs CBC & Chem 7: 08/17/19 08:56 08/17/19 Unknown Labs: Laboratory Last Values WBC 19.2 K/mm3 (4.5-11.0) H 08/17/19 08:56 RBC 4.26 M/mm3 (3.65-5.03) 08/17/19 08:56 Hgb 11.5 gm/dl (11.8-15.2) L 08/17/19 08:56 Hct 36.7 % (35.5-45.6) 08/17/19 08:56 MCV 86 fl (84-94) 08/17/19 08:56 MCH 27 pg (28-32) L 08/17/19 08:56 MCHC 31 % (32-34) L 08/17/19 08:56 RDW 18.6 % (13.2-15.2) H 08/17/19 08:56 Plt Count 149 K/mm3 (140-440) 08/17/19 08:56 Lymph % (Auto) 8.5 % (13.4-35.0) L 08/15/19 04:12 Rankin % (Auto) 4.3 % (0.0-7.3) 08/15/19 04:12 Eos % (Auto) 0.1 % (0.0-4.3) 08/15/19 04:12 Baso % (Auto) 0.2 % (0.0-1.8) 08/15/19 04:12 Lymph # 1.1 K/mm3 (1.2-5.4) L 08/15/19 04:12 Rankin # 0.5 K/mm3 (0.0-0.8) 08/15/19 04:12 Eos # 0.0 K/mm3 (0.0-0.4) 08/15/19 04:12 Baso # 0.0 K/mm3 (0.0-0.1) 08/15/19 04:12 Add Manual Diff Complete 08/15/19 02:25 Total Counted 100 08/15/19 02:25 Seg Neutrophils % 86.9 % (40.0-70.0) H 08/15/19 04:12 Seg Neuts % (Manual) 83.0 % (40.0-70.0) H 08/15/19 02:25 Band Neutrophils % 0 % 08/15/19 02:25 Lymphocytes % (Manual) 10.0 % (13.4-35.0) L 08/15/19 02:25 Reactive Lymphs % (Man) 0 % 08/15/19 02:25 Monocytes % (Manual) 7.0 % (0.0-7.3) 08/15/19 02:25 Eosinophils % (Manual) 0 % (0.0-4.3) 08/15/19 02:25 Basophils % (Manual) 0 % (0.0-1.8) 08/15/19 02:25 Metamyelocytes % 0 % 08/15/19 02:25 Myelocytes % 0 % 08/15/19 02:25 Promyelocytes % 0 % 08/15/19 02:25 Blast Cells % 0 % 08/15/19 02:25 Nucleated RBC % Not Reportable 08/15/19 02:25 Seg Neutrophils # 11.1 K/mm3 (1.8-7.7) H 08/15/19 04:12 Seg Neutrophils # Man 11.4 K/mm3 (1.8-7.7) H 08/15/19 02:25 Band Neutrophils # 0.0 K/mm3 08/15/19 02:25 Lymphocytes # (Manual) 1.4 K/mm3 (1.2-5.4) 08/15/19 02:25 Abs React Lymphs (Man) 0.0 K/mm3 08/15/19 02:25 Monocytes # (Manual) 1.0 K/mm3 (0.0-0.8) H 08/15/19 02:25 Eosinophils # (Manual) 0.0 K/mm3 (0.0-0.4) 08/15/19 02:25 Basophils # (Manual) 0.0 K/mm3 (0.0-0.1) 08/15/19 02:25 Metamyelocytes # 0.0 K/mm3 08/15/19 02:25 Myelocytes # 0.0 K/mm3 08/15/19 02:25 Promyelocytes # 0.0 K/mm3 08/15/19 02:25 Blast Cells # 0.0 K/mm3 08/15/19 02:25 WBC Morphology Not Reportable 08/15/19 02:25 Hypersegmented Neuts Not Reportable 08/15/19 02:25 Hyposegmented Neuts Not Reportable 08/15/19 02:25 Hypogranular Neuts Not Reportable 08/15/19 02:25 Smudge Cells Not Reportable 08/15/19 02:25 Toxic Granulation Not Reportable 08/15/19 02:25 Toxic Vacuolation Not Reportable 08/15/19 02:25 Dohle Bodies Not Reportable 08/15/19 02:25 Pelger-Huet Anomaly Not Reportable 08/15/19 02:25 Jorge A Rods Not Reportable 08/15/19 02:25 Platelet Estimate Not Reportable 08/15/19 02:25 Clumped Platelets 1+ 08/15/19 02:25 Plt Clumps, EDTA Not Reportable 08/15/19 02:25 Large Platelets Not Reportable 08/15/19 02:25 Giant Platelets 1+ 08/15/19 02:25 Platelet Satelliting Not Reportable 08/15/19 02:25 Plt Morphology Comment Not Reportable 08/15/19 02:25 RBC Morphology Not Reportable 08/15/19 02:25 Dimorphic RBCs Not Reportable 08/15/19 02:25 Polychromasia Not Reportable 08/15/19 02:25 Hypochromasia 1+ 08/15/19 02:25 Poikilocytosis Not Reportable 08/15/19 02:25 Anisocytosis 1+ 08/15/19 02:25 Microcytosis Not Reportable 08/15/19 02:25 Macrocytosis Not Reportable 08/15/19 02:25 Spherocytes Not Reportable 08/15/19 02:25 Pappenheimer Bodies Not Reportable 08/15/19 02:25 Sickle Cells Not Reportable 08/15/19 02:25 Target Cells Not Reportable 08/15/19 02:25 Tear Drop Cells Not Reportable 08/15/19 02:25 Ovalocytes Not Reportable 08/15/19 02:25 Helmet Cells Not Reportable 08/15/19 02:25 [place] Bodies Not Reportable 08/15/19 02:25 [place] Rings Not Reportable 08/15/19 02:25 [place] Cells Not Reportable 08/15/19 02:25 Bite Cells Not Reportable 08/15/19 02:25 Crenated Cell Not Reportable 08/15/19 02:25 Elliptocytes Not Reportable 08/15/19 02:25 Acanthocytes (Spur) Not Reportable 08/15/19 02:25 Rouleaux 1+ 08/15/19 02:25 Hemoglobin C Crystals Not Reportable 08/15/19 02:25 Schistocytes Not Reportable 08/15/19 02:25 Malaria parasites Not Reportable 08/15/19 02:25 ESR 38 mm/Hr (0-20) 08/15/19 02:25 Scott Bodies Not Reportable 08/15/19 02:25 Hem Pathologist Commnt No 08/15/19 02:25 PT 34.0 Sec. (12.2-14.9) H 08/15/19 02:25 INR 3.26 (0.87-1.13) H 08/15/19 02:25 APTT 61.5 Sec. (24.2-36.6) H* 08/15/19 02:25 D-Dimer > 45186 ng/mlDDU (0-234) H 08/17/19 08:56 Heparin Anti-Xa Level 0.37 U.I./ml (0.3-0.7) 08/16/19 22:34 ABG pH 7.141 pH Units (7.350-7.450) L* 08/17/19 Unknown ABG pCO2 51.5 mm Hg 08/17/19 Unknown ABG pO2 66.9 mm Hg (80.0-90.0) L 08/17/19 Unknown ABG HCO3 17.3 mmol/L (20.0-26.0) L 08/17/19 Unknown ABG O2 Saturation 90.4 % (95.0-99.0) L 08/17/19 Unknown ABG O2 Content 17.7 (0.0-44) 08/17/19 Unknown ABG Base Excess -11.9 mmol/L (-2.0-3.0) L 08/17/19 Unknown ABG Hemoglobin 11.1 gm/dl (14.0-18.0) L 08/17/19 Unknown ABG Carboxyhemoglobin 1.0 % (0.0-5.0) 08/17/19 Unknown ABG Methemoglobin 0.5 % (0.0-1.5) 08/17/19 Unknown Oxyhemoglobin 89.0 % (95.0-99.0) L 08/17/19 Unknown FiO2 100 % 08/17/19 Unknown Sodium 141 mmol/L (137-145) 08/17/19 Unknown Potassium 5.4 mmol/L (3.6-5.0) H D 08/17/19 Unknown Chloride 97.7 mmol/L (98-107) L 08/17/19 Unknown Carbon Dioxide 18 mmol/L (22-30) L 08/17/19 Unknown Anion Gap 31 mmol/L 08/17/19 Unknown BUN 69 mg/dL (9-20) H 08/17/19 Unknown Creatinine 6.7 mg/dL (0.8-1.5) H D 08/17/19 Unknown Estimated GFR 10 ml/min 08/17/19 Unknown BUN/Creatinine Ratio 10 % 08/17/19 Unknown Glucose 204 mg/dL (75-100) H 08/17/19 Unknown POC Glucose 176 (70-105) H 08/17/19 11:41 Lactic Acid 1.50 mmol/L (0.7-2.0) 08/14/19 16:15 Calcium 7.7 mg/dL (8.4-10.2) L 08/17/19 Unknown Ferritin > 2000.0 ng/mL (13.0-400.0) H 08/17/19 08:56 Total Bilirubin 0.30 mg/dL (0.1-1.2) 08/14/19 13:27 AST 43 units/L (5-40) H 08/14/19 13:27 ALT 18 units/L (7-56) 08/14/19 13:27 Alkaline Phosphatase 111 units/L (35-129) 08/14/19 13:27 Lactate Dehydrogenase 1513 units/L (91-180) H 08/17/19 Unknown Total Creatine Kinase 2255 units/L (55-170) H 08/15/19 12:14 CK-MB (CK-2) > 300.0 ng/mL (0.0-4.0) H 08/15/19 12:14 CK-MB (CK-2) Rel Index 13.3 (0-4) H 08/15/19 12:14 Troponin T 6.990 ng/mL (0.00-0.029) H* D 08/15/19 12:14 C-Reactive Protein 42.80 mg/dL (0.00-1.30) H 08/17/19 Unknown NT-Pro-B Natriuret Pep 8074 pg/mL (0-900) H 08/15/19 12:14 Total Protein 9.0 g/dL (6.3-8.2) H 08/14/19 13:27 Albumin 3.7 g/dL (3.9-5) L 08/14/19 13:27 Albumin/Globulin Ratio 0.7 % 08/14/19 13:27 Triglycerides 219 mg/dL (2-149) H 08/15/19 02:25 Cholesterol 154 mg/dL (50-199) 08/15/19 02:25 LDL Cholesterol Direct 72 mg/dL (50-130) 08/15/19 02:25 HDL Cholesterol 42 mg/dL (40-59) 08/15/19 02:25 Cholesterol/HDL Ratio 3.66 % 08/15/19 02:25 Procalcitonin 2.62 ng/mL (<0.15) 08/15/19 02:25 Urine Color Yellow (Yellow) 08/14/19 19:40 Urine Turbidity Slightly-cloudy (Clear) 08/14/19 19:40 Urine pH 5.0 (5.0-7.0) 08/14/19 19:40 Ur Specific [place] 1.021 (1.003-1.030) 08/14/19 19:40 Urine Protein 100 mg/dl mg/dL (Negative) 08/14/19 19:40 Urine Glucose (UA) Neg mg/dL (Negative) 08/14/19 19:40 Urine Ketones Neg mg/dL (Negative) 08/14/19 19:40 Urine Blood Sm (Negative) 08/14/19 19:40 Urine Nitrite Neg (Negative) 08/14/19 19:40 Urine Bilirubin Neg (Negative) 08/14/19 19:40 Urine Urobilinogen < 2.0 mg/dL (<2.0) 08/14/19 19:40 Ur Leukocyte Esterase Neg (Negative) 08/14/19 19:40 Urine WBC (Auto) 2.0 /HPF (0.0-6.0) 08/14/19 19:40 Urine RBC (Auto) 3.0 /HPF (0.0-6.0) 08/14/19 19:40 U Epithel Cells (Auto) 1.0 /HPF (0-13.0) 08/14/19 19:40 Urine Mucus 2+ /HPF 08/14/19 19:40 Influenza A (Rapid) Negative (Negative) 08/14/19 Unknown Influenza B (Rapid) Negative (Negative) 08/14/19 Unknown Blood Type O POSITIVE 08/15/19 04:13 Antibody Screen Negative 08/15/19 04:13 Microbiology: Microbiology 08/14/19 13:27 Peripheral/Venous Blood Culture - Preliminary NO GROWTH AFTER 72 HOURS 08/14/19 13:27 Peripheral/Venous Blood Culture - Preliminary NO GROWTH AFTER 72 HOURS [place]/IV: Voiding Method Indwelling Catheter IV Catheter Type [Left Hand] Peripheral IV IV Catheter Type [Right Hand] Peripheral IV Active Medications - Current Medications Current Medications: Generic Name Dose Route Start Last Admin Trade Name Freq PRN Reason Stop Dose Admin Acetaminophen 650 mg 08/14/19 23:52 08/16/19 19:26 Tylenol PO 650 mg Q4H PRN Administration Pain MILD(1-3)/Fever >100.5/GANNON Albuterol 2.5 mg 08/14/19 23:50 Proventil IH Q4HRT PRN Shortness Of Breath Lipase/Protease/Amylase 1 each 08/15/19 08:[address] 10,500 Unit FEEDTUBE PRN PRN For Clogged Feeding Tube Atorvastatin Calcium 40 mg 08/17/19 02:23 08/17/19 02:25 Lipitor PO 40 mg QHS ADÁN Administration Clopidogrel Bisulfate 75 mg 08/16/19 10:00 08/17/19 09:32 Plavix PO 75 mg QDAY ADÁN Administration Fentanyl 50 mcg 08/14/19 16:09 08/14/19 22:05 Sublimaze IV 50 mcg Q10MIN PRN Administration ANALGESIA Hydrophilic Ointment 1 applic 08/14/19 16:09 Vaseline Lip Therapy TP Q2HR PRN Dry Lips Hydroxychloroquine Sulfate 200 mg 08/15/19 22:00 08/17/19 09:29 Plaquenil PO 08/19/19 10:01 200 mg Q12H ADÁN Administration Fentanyl Citrate 2,000 mcg in 100 mls @ 5.216 mls/hr 08/14/19 17:00 08/17/19 04:38 Fentanyl Drip Premix IV 1 mcg/kg/hr TITR ADÁN 5.216 mls/hr Titration Protocol 1 MCG/KG/HR Propofol 1,000 mg in 100 mls @ 3.13 mls/hr 08/14/19 17:00 08/17/19 04:38 Diprivan 10 Mg/Ml IV 0 mcg/kg/min TITR ADÁN 0 mls/hr Titration Protocol 5 MCG/KG/MIN Ceftriaxone Sodium 2 gm in 100 mls @ 200 mls/hr 08/15/19 10:00 08/17/19 09:31 Rocephin/Ns 2 Gm/100 Ml IV 200 mls/hr Q24HR ADÁN Administration Protocol Heparin Sodium/Sodium Chloride 25,000 unit in 500 mls @ 20 mls/hr 08/15/19 03:00 08/17/19 06:36 Heparin/ 0.45% Nacl-25,000 Unit/500 Ml IV 1,500 units/hr TITRATE ADÁN 30 mls/hr Administration Protocol 1,000 UNITS/HR Lorazepam 100 mg/ Sodium 100 mls @ 1 mls/hr 08/15/19 13:00 08/17/19 04:38 Chloride/ Miscellaneous IV 1 mg/hr Information TITR ADÁN 1 mls/hr Titration Protocol 1 MG/HR Norepinephrine 4 mg in 250 mls @ 7.5 mls/hr 08/15/19 12:00 08/17/19 15:45 Levophed Drip 4 Mg/Ns 250 Ml IV 20 mcg/min TITR ADÁN 75 mls/hr Titration Protocol 2 MCG/MIN Vasopressin 20 unit/ Sodium 101 mls @ 9.09 mls/hr 08/17/19 14:00 Chloride IV TITR ADÁN Protocol 0.03 UNITS/MIN Sodium Bicarbonate 150 meq/ 1,150 mls @ 75 mls/hr 08/17/19 14:00 08/17/19 14:35 Dextrose IV 75 mls/hr DIRECT ADÁN Administration Lansoprazole 30 mg 08/17/19 10:00 08/17/19 09:35 Prevacid Solutab FEEDTUBE 30 mg QDAY ADÁN Administration Lorazepam 2 mg 08/15/19 11:36 Ativan IV Q10MIN PRN Agitation Multi-Ingred Cream/Lotion/Oil/Oint 1 applic 08/14/19 16:09 Artificial Tears Ophth Oint OU Q4HR PRN Dry Eye(s) Ondansetron HCl 4 mg 08/14/19 23:52 Zofran IV Q8H PRN Nausea And Vomiting Simple Syrup 15 ml 08/15/19 08:47 Simple Syrup FEEDTUBE PRN PRN Hypoglycemia Simple Syrup 30 ml 08/15/19 08:47 Simple Syrup FEEDTUBE PRN PRN Hypoglycemia Sodium Bicarbonate 325 mg 08/15/19 08:47 Sodium Bicarbonate FEEDTUBE PRN PRN For Clogged Feeding Tube Sodium Chloride 10 ml 08/15/19 10:00 08/17/19 09:33 Sodium Chloride Flush Syringe 10 Ml IV 10 ml BID ADÁN Administration Sodium Chloride 10 ml 08/14/19 23:52 Sodium Chloride Flush Syringe 10 Ml IV PRN PRN LINE FLUSH Nutrition/Malnutrition Assess - Dietary Evaluation Nutrition/Malnutrition Findings: Nutrition Notes Start: 08/15/19 08:34 Freq: Status: Active Protocol: Document 08/17/19 08:10 LP (Rec: 08/17/19 08:16 LP [id number]) Nutrition Notes Initial or Follow up Reassessment Current Diagnosis Sepsis,Hypertension, Respiratory Failure Other Pertinent Diagnosis COVID-19, Pneu Current Diet Vital 1.2 at 60ml/hr Labs/Tests Reviewed Pertinent Medications Reviewed Height 5 ft 9 in Weight 100.5 kg [place] Body Weight (kg) 72.72 BMI 32.7 Weight Status Obese Subjective/Other Information Pt tolerating TF at goal. Pt continues on vent. Percent of energy/protein needs met: 100%/69% Burn Absent Trauma Absent Current % PO Negligible Minimum of two criteria No physical signs of malnutrition #1 Nutrition Diagnosis Inadequate oral intake Diagnosis Progress(for reassessment Continues documentation) Is patient on ventilator? Yes Is Patient Ambulatory and/or Out of Bed No REE-([facility]-confined to bed) 2141.484 Kcal/Kg value to use for calculation 17 Approximate Energy Requirements Using 1709 kcal/Kg Calculation Used for Recommendations Kcal/kg Additional Notes Protein: 156g (>/=2g/kg using IBW 78kg) Fluid: 1ml/kcal Nutrition Intervention Change Diet Order: TF Nutrition Support: Vital AF 1.2 at 60ml/hr Flush 100ml q4h Kcal 1,728 Protein (gm) 108 Fluid (mL) 1,168 Goal #1 Meet at least 80% of kcal and 70% of protein needs via TF Anticipated Discharge Needs: Unable to determine at this time Follow-Up By: 08/19/19 Additional Comments Follow for TF tolerance
[2019-08-17] MEDS ORDERED: INSULIN REGULAR, HUMAN 100 UNITS/1 ML IV ONE (17:16)
[2019-08-17] MEDS ORDERED: DEXTROSE 50% IN WATER (25GM) 50 ML SYRINGE IV ONE (17:16)
[2019-08-17] MEDS ORDERED: INSULIN LISPRO 100 UNIT/ML SUB-Q SCH (18:00)
--- NOTE | 2019-08-17 18:12 | Consultation ---
History of Present Illness - History of Present Illness Thank you for the consultation Patient was evaluated today My assessment and plan are as follows Acute renal failure in a patient who is admitted here with Multiorgan failure in the setting of coronavirus infection respiratory failure acute myocardial infarction, patient appears to be doing very poorly, hemodynamically not doing so well, he is not suitable for immediate renal replacement therapy and also there is no emergent indication, for stat dialysis at this time respiratory failure resulting from coronavirus infection Acute myocardial infarction being followed by cardiology service Acidosis, will order for a repeat troponin as well as lactic acid level, bicarb is around 18 his ABG pH is around 7.1 Respiratory failure multifactorial infected with coronavirus infection patient appears to be doing poorly overall prognosis appears to be very poor I had a long discussion with patient's at length,for approximately 24 minutes patient appears to be doing very poorly his mortality risk appears to be very high, also discussed with pulmonary and critical care attending physician Dr. Diaz Layne, we would like to wait for him to become hemodynamically relatively more stable before we can consider initiating renal replacement therapy, I also did request the nurse that they should have cardiology attending see the patient today if possible given that his post acute IL in my professional opinion: Patient's prognosis is very poor, his mortality risk is very high It is quite likely that even on dialysis , chances of hemodynamic collapse and is also very high during dialysis process, if family chooses to proceed with dialysis Upon his 's request I will also reach out to patient's [id number] who has been a dialysis nurse in the past I have addressed all the renal related issues with patient's at length I will continue to follow up closely, Author: Carlos De La Rosa M.D. [facility] [address] [place] [address] Tel; [phone] Source of information: From patient 's and current chart History of present illness 64-year-old male who has been admitted her with ongoing symptoms of diarrhea and fever for nearly 5-7 days Patient has known history of rheumatoid arthritis hence immunocompromise status and apparently was exposed to someone with coronavirus at work site, patient ever since hospitalization has been doing very poorly, hospital course is complicated by acute myocardial infarction, multiorgan failure, sepsis, respiratory failure, hypotension, renal failure Renal service has been consulted for management of renal failure, which is evolving rapidly and possible need of dialysis, I did discuss with patient's nurse at the bedside Also found out from patient's that he was sick at home for nearly one week but did not want to come to hospital even though he has had fever and diarrhea ongoing he was taking ibuprofen at home Interdisciplinary notes, physical exam findings, labs and x-ray reports were also reviewed from this hospitalization Past medical history: rheumatoid arthritis No prior history of chronic kidney disease Hypertension Chronic NSAID use Current allergies: Reviewed from the current chart Social history: Reviewed from the current chart Family history: Reviewed from the current chart Review of system: unable to obtain due to multiorgan failure Physical examination Vitals: Reviewed due to coronavirus pandemic and limited availability of PPE, physical findings were reviewed from pulmonary critical care notes as well as hospital medicine service Labs and x-rays: Reviewed from this admission [id number] Past History Past Medical History: hypertension, other (Rheumatoid arthritis) Past Surgical History: Other Social history: , lives with family, full code Family history: hypertension Medications and Allergies Allergies Allergy/AdvReac Type Severity Reaction Status Date / Time No Known Allergies Allergy Verified 03/18/18 09:23 Home Medications Medication Instructions Recorded Confirmed Last Taken Type Folic Acid [Folvite] 1 mg PO QDAY 03/18/18 08/14/19 03/18/18 History Ibuprofen [Ibuprofen 800] 800 mg PO TID 03/18/18 08/14/19 03/18/18 History Prednisone [predniSONE (Kiki) ER 5 mg PO QDAY 03/18/18 08/14/19 03/18/18 History TAB] metHOTREXate(DOSE WEEKLY ONLY) 15 mg PO QWEEK 03/18/18 08/14/19 03/16/18 History [metHOTREXate (DOSE WEEKLY ONLY)] sulfaSALAzine [Azulfidine] 1,000 mg PO BID 03/18/18 08/14/19 03/18/18 History Amlodipine Besylate [Norvasc] 10 mg PO QDAY 08/14/19 08/14/19 Unknown History HYDROcodone/APAP 7.5-325 [Stopover 1 each PO Q8HR PRN 08/14/19 08/14/19 Unknown His tory 7.5/325] Zolpidem Tartrate 10 mg PO QHS PRN 08/14/19 08/14/19 Unknown History Active Meds: Active Medications Acetaminophen (Tylenol) 650 mg PO Q4H PRN PRN Reason: Pain MILD(1-3)/Fever >100.5/GANNON Last Admin: 08/16/19 19:26 Dose: 650 mg Documented by: Albuterol (Proventil) 2.5 mg IH Q4HRT PRN PRN Reason: Shortness Of Breath Lipase/Protease/Amylase (Pancreaze Dr 10,500 Unit) 1 each FEEDTUBE PRN PRN PRN Reason: For Clogged Feeding Tube Atorvastatin Calcium (Lipitor) 40 mg PO QHS [facility] Last Admin: 08/17/19 02:25 Dose: 40 mg Documented by: Clopidogrel Bisulfate (Plavix) 75 mg PO QDAY [facility] Last Admin: 08/17/19 09:32 Dose: 75 mg Documented by: Fentanyl (Sublimaze) 50 mcg IV Q10MIN PRN PRN Reason: ANALGESIA Last Admin: 08/14/19 22:05 Dose: 50 mcg Documented by: Hydrophilic Ointment (Vaseline Lip Therapy) 1 applic TP Q2HR PRN PRN Reason: Dry Lips Hydroxychloroquine Sulfate (Plaquenil) 200 mg PO Q12H [facility] Stop: 08/19/19 10:01 Last Admin: 08/17/19 09:29 Dose: 200 mg Documented by: Fentanyl Citrate (Fentanyl Drip Premix) 2,000 mcg in 100 mls @ 5.216 mls/hr IV TITR ADÁN; Protocol Last Titration: 08/17/19 04:38 Dose: 1 mcg/kg/hr, 5.216 mls/hr Documented by: Propofol (Diprivan 10 Mg/Ml) 1,000 mg in 100 mls @ 3.13 mls/hr IV TITR ADÁN; Protocol Last Titration: 08/17/19 04:38 Dose: 0 mcg/kg/min, 0 mls/hr Documented by: Ceftriaxone Sodium (Rocephin/Ns 2 Gm/100 Ml) 2 gm in 100 mls @ 200 mls/hr IV Q24HR ADÁN; Protocol Last Admin: 08/17/19 09:31 Dose: 200 mls/hr Documented by: Heparin Sodium/Sodium Chloride (Heparin/ 0.45% Nacl-25,000 Unit/500 Ml) 25,000 unit in 500 mls @ 20 mls/hr IV TITRATE ADÁN; Protocol Last Admin: 08/17/19 06:36 Dose: 1,500 units/hr, 30 mls/hr Documented by: Lorazepam 100 mg/ Sodium Chloride/ Miscellaneous Information 100 mls @ 1 mls/hr IV TITR ADÁN; Protocol Last Titration: 08/17/19 04:38 Dose: 1 mg/hr, 1 mls/hr Documented by: Norepinephrine (Levophed Drip 4 Mg/Ns 250 Ml) 4 mg in 250 mls @ 7.5 mls/hr IV TITR ADÁN; Protocol Last Titration: 08/17/19 15:45 Dose: 20 mcg/min, 75 mls/hr Documented by: Vasopressin 20 unit/ Sodium (Chloride) 101 mls @ 9.09 mls/hr IV TITR ADÁN; Protocol Sodium Bicarbonate 150 meq/ (Dextrose) 1,150 mls @ 75 mls/hr IV DIRECT ADÁN Last Admin: 08/17/19 14:35 Dose: 75 mls/hr Documented by: Insulin Human Lispro (Humalog) 0 unit SUB-Q Q6HR ADÁN; Protocol Last Admin: 08/17/19 17:37 Dose: 3 unit Documented by: Lansoprazole (Prevacid Solutab) 30 mg FEEDTUBE QDAY ADÁN Last Admin: 08/17/19 09:35 Dose: 30 mg Documented by: Lorazepam (Ativan) 2 mg IV Q10MIN PRN PRN Reason: Agitation Multi-Ingred Cream/Lotion/Oil/Oint (Artificial Tears Ophth Oint) 1 applic OU Q4HR PRN PRN Reason: Dry Eye(s) Ondansetron HCl (Zofran) 4 mg IV Q8H PRN PRN Reason: Nausea And Vomiting Simple Syrup (Simple Syrup) 15 ml FEEDTUBE PRN PRN PRN Reason: Hypoglycemia Simple Syrup (Simple Syrup) 30 ml FEEDTUBE PRN PRN PRN Reason: Hypoglycemia Sodium Bicarbonate (Sodium Bicarbonate) 325 mg FEEDTUBE PRN PRN PRN Reason: For Clogged Feeding Tube Sodium Chloride (Sodium Chloride Flush Syringe 10 Ml) 10 ml IV BID [facility] Last Admin: 08/17/19 09:33 Dose: 10 ml Documented by: Sodium Chloride (Sodium Chloride Flush Syringe 10 Ml) 10 ml IV PRN PRN PRN Reason: LINE FLUSH Exam - Vital Signs Vital signs: Vital Signs Temp Pulse Resp BP Pulse Ox 102.4 F H 76 24 134/84 76 L 08/14/19 12:48 08/14/19 12:48 08/14/19 12:48 08/14/19 12:48 08/14/19 12:48 Results - Lab Results 08/17/19 08:56 08/17/19 Unknown Most recent lab results ABG pH 7.141 pH Units (7.350-7.450) L* 08/17/19 Unknown ABG pCO2 51.5 mm Hg 08/17/19 Unknown ABG pO2 66.9 mm Hg (80.0-90.0) L 08/17/19 Unknown ABG HCO3 17.3 mmol/L (20.0-26.0) L 08/17/19 Unknown ABG O2 Saturation 90.4 % (95.0-99.0) L 08/17/19 Unknown Calcium 7.7 mg/dL (8.4-10.2) L 08/17/19 Unknown
--- NOTE | 2019-08-17 19:04 | Event Note ---
ADRIEL XIONG called. I presented to the bedside and the patient was found to be in asystolic arrest. Patient treated in accordance with ACLS protocol with initial return of perfusing cardiac rhythm. Patient was then tried titrated to max dose of IV pressors and treated with IV fluid resuscitation therapy. After approximately 10 minutes the patient experienced bradycardia with subsequent loss of perfusing rhythm. A repeat ADRIEL XIONG was called while I was standing outside the patient's room. Patient was reinitiated on ACLS protocol without return of perfusing cardiac rhythm. Upon exam the patient's pupils were fixed and dilated, asystole was displayed on the medical professionals, and the patient was without breath sounds. The patient was pronounced at 1906 hrs. 65 minutes crit [facility] care time dedicated to patient care.
--- NOTE | 2019-08-17 19:12 | Death Note ---
Note Date of : 08/17/19 Time of : 19:06 Time Pronounced: 19:06 - Preliminary Cause of (problem) (1) Acute respiratory failure Qualifiers: Respiratory failure complication: hypoxia Qualified Code(s): J96.01 - Acute respiratory failure with hypoxia Preliminary cause of (2) Coronavirus infection Preliminary cause of (3) Bilateral pneumonia Preliminary cause of
[2019-08-17 20:22] VITALS: BP 100/67
== END 2019-08-17 20:25 | DRG 871 ==
LOC: ED 12:48 → CC1 15:49
PROVIDERS: ADMIT Internal Medicine; ATTEND Internal Medicine
PROC: 0BH17EZ Insertion of Endotracheal Airway into Trachea, Via Natural or Artificial Opening (ICD-10-PCS; 2019-08-14)
PROC: 5A1945Z Respiratory Ventilation, 24-96 Consecutive Hours (ICD-10-PCS; 2019-08-14)
PROC: 4A033R1 Measurement of Arterial Saturation, Peripheral, Percutaneous Approach (ICD-10-PCS; 2019-08-14)
PROC: 3E03317 Introduction of Other Thrombolytic into Peripheral Vein, Percutaneous Approach (ICD-10-PCS; principal; 2019-08-15)
PROC: 5A12012 Performance of Cardiac Output, Single, Manual (ICD-10-PCS; 2019-08-17)
PROC: 02HV33Z Insertion of Infusion Device into Superior Vena Cava, Percutaneous Approach (ICD-10-PCS; 2019-08-17)
DX: A41.89 Other specified sepsis (principal); U07.1 COVID-19; J96.01 Acute respiratory failure with hypoxia; I21.3 ST elevation (STEMI) myocardial infarction of unspecified site; J12.89 Other viral pneumonia; R65.21 Severe sepsis with septic shock; N17.0 Acute kidney failure with tubular necrosis; E87.2 Acidosis; I10 Essential (primary) hypertension; J44.9 Chronic obstructive pulmonary disease, unspecified; M05.761 Rheumatoid arthritis with rheumatoid factor of right knee without organ or systems involvement; M05.762 Rheumatoid arthritis with rheumatoid factor of left knee without organ or systems involvement; I46.9 Cardiac arrest, cause unspecified; E86.9 Volume depletion, unspecified; Z82.49 Family history of ischemic heart disease and other diseases of the circulatory system
CPT/HCPCS: 36415; 36600; 36620; 71045; 80048; 80053; 80061; 81001; 82140; 82550; 82553; 82728; 82803; 82962; 83615; 83880; 84145; 84484; 85007; 85014; 85018; 85025; 85027; 85379; 85520; 85610; 85652; 85730; 86140; 86850; 86900; 86901; 87040; 87205; 87400; 92950; 93005; 93010; 94002; 94003; 94760; G0378; A9270-GY; J0171; J0330; J0456; J0696; J1644; J1815; J1940; J2060; J2250; J2704; J2997; J3010; J7030; J7050; J7070